=== PATIENT | male | born 1940 | race Caucasian/White ===

== ENCOUNTER → 2016-09-06 | Outpatient (CLI) | payer OTHER ==
[~2016-09-06] MED LIST: ACET-1256 PO; AMLO-114 PO; ASPCH81X PO; ATOR-22 PO; CALC600T9 PO; GARLTAB3 PO; MELO7.5T5 PO; RXC5 PO; VITAMIN B1 PO; VITAMIN B12 PO; VITAMIN D PO
== END | disposition home or self-care (01) ==
LOC: C.CTS 10:51
PROVIDERS: ATTEND Orthopaedic Surgery
DX: Z01.818 Encounter for other preprocedural examination (principal); M19.012 Primary osteoarthritis, left shoulder

== ENCOUNTER 2016-09-30 09:01 | Inpatient (IN) | payer OTHER ==
--- NOTE | 2016-09-06 11:46 | DIAGNOSTIC IMAGING REPORT ---
TWO VIEW CHEST CLINICAL HISTORY: Preoperative examination. FINDINGS: PA and lateral chest radiographs are compared to study dated 06/23/2014. The heart is mildly enlarged and there is atherosclerotic calcification of the thoracic aorta. There is chronic elevation of the right hemidiaphragm and bibasilar atelectasis. No airspace consolidation or pleural effusion is seen. There is no pneumothorax. The skeletal structures are osteopenic. The bony thorax appears intact. IMPRESSION: Mild cardiac enlargement with no active disease in the chest. Electronically signed by: Theodore Palacios M.D. 09/06/2016 11:45 AM Dictated Date/Time: 09/06/2016 11:44 AM
[2016-09-06 12:05] LABS: BASO % 0.2 %; BASO ABS # 0.02 K/uL (0-0.2); COMPLETE YES; EOS % 2.7 %; HEMATOCRIT 39.6 % (42-52); IG% 0.4 %; LYMPH % 15.2 %; LYMPH ABS # 1.22 K/uL (1.2-3.4); MEAN CELL VOLUME 94.1 fL (80-100); MEAN CORPUSCULAR HEMOGLOBIN 31.8 pg (25-34); MEAN CORPUSCULAR HGB CONC 33.8 g/dl (32-36); MEAN PLATELET VOLUME 10.9 fL (7.4-10.4); MONO % 12.6 %; NEUT % 68.9 %; PLATELET COUNT 130 K/uL (130-400); RED BLOOD COUNT 4.21 M/uL (4.7-6.1); WHITE BLOOD COUNT 8.04 K/uL (4.8-10.8)
[2016-09-06 12:18] LABS: PARTIAL THROMBOPLASTIN RATIO 1.2; PROTHROMBIN TIME (PATIENT) 10.4 SECONDS (9.0-12.0)
[2016-09-06 12:25] LABS: BLOOD UREA NITROGEN 20 mg/dl (7-18); BUN/CREATININE RATIO 19.8 (10-20); CARBON DIOXIDE 27 mmol/L (21-32); CHLORIDE 105 mmol/L (98-107); GLUCOSE 90 mg/dl (70-99); POTASSIUM 4.4 mmol/L (3.5-5.1); SODIUM 141 mmol/L (136-145)
[2016-09-06 13:08] LABS: URINE APPEARANCE CLEAR (CLEAR); URINE BILIRUBIN NEG (NEG); URINE COLOR YELLOW; URINE NITRITE NEG (NEG); URINE SPECIFIC GRAVITY 1.002 (1.000-1.030); UROBILINOGEN NEG (NEG)
[2016-09-06 13:11] LABS: MANUAL MICROSCOPIC REQUIRED? NO; REVIEW REQ? NO
[2016-09-15 16:00] VITALS: BMI 28.0
--- NOTE | 2016-09-29 14:18 | HISTORY & PHYSICAL EXAMINATION ---
DATE OF ADMISSION: 09/30/2016 CHIEF COMPLAINT: Primary osteoarthritis of the left shoulder. HISTORY OF PRESENT ILLNESS: Zenon is a pleasant 75-year-old male who has been having increased shoulder pain over the last several months. X-rays and clinical examination as well as MRI are all diagnostic for primary osteoarthritis of the shoulder. After failing extensive conservative treatment including multiple injections, he has elected to proceed with a left total shoulder arthroplasty. He understands all the risks, benefits, alternatives to the procedure and has elected to proceed. PAST MEDICAL HISTORY: Significant for hyperlipidemia and hypertension. MEDICATIONS: Include tramadol 50 mg for pain, amlodipine besylate 5 mg daily, atorvastatin 20 mg daily, Mobic 15 mg daily, and aspirin 81 mg daily. ALLERGIES: None. PAST SURGICAL HISTORY: Denies. FAMILY HISTORY: Noncontributory. SOCIAL HISTORY: He is . He has 3 kids. He remains very active. REVIEW OF SYSTEMS: He complains of left shoulder pain and tightness. All other pertinent review of systems are negative. PHYSICAL EXAMINATION: GENERAL: He is awake, alert and oriented x3. He is in no apparent distress. He is very pleasant. HEENT: Pupils equal, round and reactive to light. Extraocular motions intact. Oral mucosa pink and moist. HEART: Regular rate per radial pulse. LUNGS: Leslie symmetrically bilaterally with no audible breath sounds. ABDOMEN: Soft, nontender, nondistended. MUSCULOSKELETAL: On physical examination of the left shoulder, he has decreased active range of motion with only about 90 degrees of forward flexion and 90 degrees of abduction. He has 4/5 muscle strength with full can testing and external rotation secondary to pain. He has significant pain over the anterior glenohumeral joint line. No AC joint pain. IMAGING DATA: X-rays of the shoulder do show advanced osteoarthritis with mostly central glenoid wear. IMPRESSION: Primary osteoarthritis of the left shoulder. PLAN: We will proceed with a Biomet comprehensive left total shoulder arthroplasty. Postoperatively, he will be placed in an arm sling and kept overnight for postoperative medical management.
[2016-09-30] VITALS (7 sets, daily range): BP systolic 106–179; BP diastolic 58–88; PULSE 58–79; TEMP 36.2–36.8; O2SAT 91–98; Ht 182.9 cm; Wt 93.6 kg
[~2016-09-30] VITALS: Ht 182.9 cm; Wt 93.6 kg
[2016-09-30] MEDS: TRANEXAMIC ACID INJ 1,000 MG in SODIUM CHLORIDE 0.9% 100ML 100 ML IV SCH ×2 (06:30→10:45)
[~2016-09-30 09:01] MED LIST changes: +ACETAMINOPHEN 500 MG TAB PO SCH; +CEFAZOLIN 2000 MG/60 ML D5W 60 ML IV SCH; +FAMOTIDINE 20 MG TAB PO SCH; +GABAPENTIN 300 MG CAP PO SCH; +LACTATED RINGER'S 1000ML 1,000 ML IV SCH; +LACTATED RINGER'S 1000ML IV SCH; +ROPIVACAINE 0.5% 5 MG/ML 30 ML VIAL ONE; +ROPIVACAINE 5MG/ML 30 ML 150 MG, BUPIVACAINE/EPINEPHR 0.5% MPF 30 ML, KETOROLAC TROMETH... INFIL SCH; -RXC5 PO
[2016-09-30] MEDS ORDERED: GLYCOPYRROLATE INJ 0.2 MG/ML VIAL ONE (09:09)
[2016-09-30] MEDS ORDERED: ROCURONIUM BROMIDE 10 MG/ML 5 ML VIAL ONE (09:09)
[2016-09-30] MEDS ORDERED: ONDANSETRON INJ 2 MG/ML 2 ML VIAL ONE (09:09)
[2016-09-30] MEDS ORDERED: LIDOCAINE HCL 2% 2 ML VIAL (20MG/ML) ONE (09:09)
[2016-09-30] MEDS ORDERED: MIDAZOLAM HCL 1 MG/ML 2ML VIAL ONE ×2 (09:09→09:23)
[2016-09-30] MEDS ORDERED: DEXAMETHASONE SOD INJ 4 MG/ML VIAL ONE (09:09)
[2016-09-30] MEDS ORDERED: FENTANYL CITRATE INJ 50 MCG/1 ML 2 ML VIAL ONE ×2 (09:09)
[2016-09-30] MEDS ORDERED: NEOSTIGMINE METHYLSULFATE 1 MG/ML 10ML VIAL ONE (09:09)
[2016-09-30] MEDS ORDERED: PROPOFOL IV EMULSION 10 MG/ML 20 ML VIAL IV ONE (09:09)
--- NOTE | 2016-09-30 09:20 | History & Physical Bridge Note ---
H&P Re-Evaluation Bridge Note: I have examined the patient, reviewed the History & Physical and in the interval since the performance of the History & Physical I have noted the following changes of clinical significance: No changes noted
[2016-09-30] MEDS ORDERED: BACITRACIN 50000 UNIT VIAL ONE (10:16)
[2016-09-30] MEDS ORDERED: BUPIVACAINE/EPINEPHRINE 0.5% MPF 1:200,000 30 ML VIAL ONE (10:16)
[2016-09-30] MEDS ORDERED: ORTHO JOINT ANESTHETIC ONE (10:20)
[2016-09-30] MEDS ORDERED: FLUMAZENIL 0.1 MG/1 ML 10 ML VIAL IV ONE (13:34)
[2016-09-30] MEDS ORDERED: SOD PHOSPHATE/SOD BIPHOSPHATE ENEMA 132 ML BTL PR PRN (13:45)
[2016-09-30] MEDS ORDERED: ONDANSETRON INJ 2 MG/ML 2 ML VIAL IV PRN ×2 (13:45→14:45)
[2016-09-30] MEDS ORDERED: OXYCODONE HCL IR 5 MG TAB (IMMEDIATE RELEASE) PO PRN (13:45)
[2016-09-30] MEDS ORDERED: BISACODYL 10 MG SUPP PR PRN (13:45)
[2016-09-30] MEDS ORDERED: MoRPHine SULFATE 2 MG/ML CARP IV PRN (13:45)
[2016-09-30] MEDS ORDERED: MAGNESIUM HYDROXIDE SUSP 30 ML UDC PO PRN (13:45)
[2016-09-30] MEDS ORDERED: METOCLOPRAMIDE HCL INJ 5 MG/ML 2 ML VIAL IV PRN (13:45)
[2016-09-30] MEDS ORDERED: NALOXONE HCL 0.4 MG/1 ML VIAL/CARP IV PRN (13:45)
[2016-09-30] MEDS ORDERED: HYDROmorphone INJ 1 MG/ML SYR ONE (14:14)
--- NOTE | 2016-09-30 14:44 | DIAGNOSTIC IMAGING REPORT ---
LEFT SHOULDER MIN 2 VIEWS ROUTINE CLINICAL HISTORY: Postoperative evaluation. COMPARISON: CT of the left shoulder September 06, 2016 and left shoulder radiographs July 18, 2016. FINDINGS: Alignment of the left shoulder arthroplasty is anatomic. There is no periprosthetic fracture. A surgical drain is in place. An 8 mm metallic density within the left upper arm along the proximal shaft of the left humerus is unchanged since prior exam of July 18, 2016. IMPRESSION: 1. Expected findings following left shoulder arthroplasty. 2. 8 mm metallic density within the left upper arm which is unchanged since preoperative radiographs of July 18, 2016. This may reflect a foreign body. Electronically signed by: Alf Sidhu M.D. 09/30/2016 2:42 PM Dictated Date/Time: 09/30/2016 2:40 PM
[2016-09-30] MEDS ORDERED: ATROPINE SULFATE 0.1 MG/ML 5ML SYR IV PRN (14:45)
[2016-09-30] MEDS ORDERED: HYDROmorphone INJ 2 MG/ML SYR/VIAL IV PRN (14:45)
--- NOTE | 2016-09-30 15:01 | Anesthesiology Progress Note ---
Anesthesia Post Op Note Date & Time Sep 30, 2016 at 15:01 Vital Signs Pain Intensity: 0 Vital Signs Past 12 Hours Date Time Temp Pulse Resp B/P Pulse Ox O2 Delivery O2 Flow Rate FiO2 09/30/16 14:45 36.4 09/30/16 14:44 68 18 09/30/16 14:44 68 18 98 09/30/16 14:40 130/60 09/30/16 14:39 63 21 09/30/16 14:39 70 21 94 09/30/16 14:35 133/68 09/30/16 14:34 59 17 09/30/16 14:34 56 17 100 09/30/16 14:33 67 17 100 09/30/16 14:33 66 17 09/30/16 14:30 110/59 09/30/16 14:28 56 14 99 09/30/16 14:28 56 14 09/30/16 14:26 117/58 09/30/16 14:23 54 12 09/30/16 14:23 53 12 100 09/30/16 14:20 117/62 09/30/16 14:18 69 19 09/30/16 14:18 69 19 100 09/30/16 14:15 134/64 09/30/16 14:13 70 19 100 09/30/16 14:13 70 19 09/30/16 14:10 135/70 09/30/16 14:08 36.0 16 140/67 99 Mask 10 09/30/16 14:08 76 20 140/67 100 09/30/16 14:08 77 20 09/30/16 09:33 36.6 67 20 179/88 98 Room Air Notes Mental Status: alert / awake / arousable, participated in evaluation Pt Amnestic to Procedure: Yes Nausea / Vomiting: adequately controlled Pain: adequately controlled Airway Patency, RR, SpO2: stable & adequate BP & HR: stable & adequate Hydration State: stable & adequate Anesthetic Complications: no major complications apparent
--- NOTE | 2016-09-30 15:04 | Anesthesiology Progress Note ---
Anesthesia Progress Note Date of Service Sep 30, 2016. Progress Notes During intubation at the start of the surgery, it was noted that he had a small smooth protuberance projecting from his posterior oropharynx, above the glottis , near the level of the epiglottis. Attempted to get a video with the glidescope and am working with HIM to retrieve it. Talked to patient and after surgery about having an ENT take a look at it at some time in the future. Otherwise he did very well with his surgery.
--- NOTE | 2016-09-30 15:52 | [facility] Post Operative Brief Note ---
Immediate Operative Summary Operative Date Sep 30, 2016. Pre-Operative Diagnosis Primary osteoarthritis of the left shoulder Post-Operative Diagnosis Same as pre-operative diagnosis Procedure(s) Performed Left Total Shoulder Arthroplasty, Cemented Surgeon Dr. Bruno Sinclair Undercover Cop Surgeon(s) Robert Pierce PA-C Estimated Blood Loss 200 ml Findings as above Specimens A: Left humeral head Complication(s) None Disposition Recovery Room / PACU
[2016-09-30] MEDS: D5W AND 1/2NSS + 20MEQ KCL 1,000 ML IV SCH (16:38)
[2016-09-30] MEDS: KETOROLAC TROMETHAMINE 15 MG/ML VIAL IV. SCH ×2 (17:58→23:26)
[2016-09-30] MEDS ORDERED: PNEUMOCOCCAL POLYSACCHARIDES 25 MCG/0.5 ML VIAL/SYR IM. ONE (20:15)
[2016-09-30] MEDS ORDERED: PNEUMOCOCCAL ADMINISTRATION CHARGE ONE (20:15)
[2016-09-30] MEDS: ACETAMINOPHEN IV 1,000 MG in EMPTY BAG 0 ML IV SCH (20:32)
[2016-09-30] MEDS: DOCUSATE SODIUM 100 MG CAP PO SCH (20:33)
[2016-09-30] MEDS: CEFAZOLIN IV 2,000 MG in DEXTROSE 5% 50ML 50 ML IV SCH (20:33)
[2016-09-30] MEDS ORDERED: SENNA 8.6 MG TAB PO SCH (21:00)
--- NOTE | 2016-09-30 22:46 | OPERATIVE REPORT ---
DATE OF OPERATION: 09/30/2016 PREOPERATIVE DIAGNOSIS: Primary osteoarthritis of the left shoulder. POSTOPERATIVE DIAGNOSIS: Same. PROCEDURE: Left total shoulder arthroplasty. SURGEON: Dr. Aashish Sinclair. FEED HANDLER: Robert Pierce PA-C, whose assistance was necessary for retraction and helping with instrumentation. ANESTHESIA: General with a left interscalene nerve block. COMPLICATIONS: None. CONDITION: Stable to PACU. INDICATIONS: Zenon is a very pleasant 75-year-old male, who presented to my office with chronic left shoulder pain. X-rays and MRIs were diagnostic for primary osteoarthritis of the left shoulder. After failing extensive conservative treatment, he elected to undergo a left total shoulder arthroplasty. DESCRIPTION OF PROCEDURE: On 09/30/2016, he arrived at [facility] for the above procedure. He was seen in the preoperative holding area and the operative extremity was identified and signed. He was given a preoperative antibiotic and a left interscalene nerve block. He was taken back to the operating room, laid on the table in supine position and put into the beach chair position. The left shoulder was prepped and draped in sterile fashion. Time-out was done and the patient and operative extremity was properly identified. A deltopectoral approach was utilized. Dissection was taken down through the fascia and the anterior shoulder was exposed. The long head of biceps tendon was tenodesed to the upper border of the pec major. The rotator interval was opened and the subscapularis was tenotomized off the lesser tuberosity with a centimeter of cuff tissue remaining. The shoulder was dislocated out of the joint. A reamer was sent down the center of the humeral canal. Sequential reaming up to a size 14 reamer was done. Off the final reamer, a proximal humeral resection guide was placed and the proximal humerus was resected at 135 degrees of inclination and 30 degrees of retroversion. The glenoid was then exposed. Time was spent doing an anterior, inferior and superior capsular and labral release. The posterior labrum was not touched. The [employer] signature guide was then snapped onto the anterior glenoid and the guide pin was sent in the total shoulder arthroplasty hole. The glenoid was determined to be a size small. It was reamed. The boss was then drilled, followed by 3 peripheral peg holes and the final glenoid was then cemented into place with Palacos G cement. Once cement had hardened, the proximal humerus was exposed. Sequential broaching up to a size 14 broach was done. Off that broach, a 46 x 18 mm eccentric head was placed. The shoulder was brought through a full range of motion and felt to be stable. The trials were removed. The final implants were impacted into place. The subscapularis was then tenodesed back to the lesser tuberosity with transosseous FiberWire sutures and [id number] sutures. Two FiberWire sutures were placed in the lateral rotator interval. The wound was irrigated with 3 liters of normal saline solution with bacitracin. All surrounding soft tissues were injected with 100 mL of an orthopedic pain control cocktail. A drain was placed. The skin was closed with 2-0 Vicryl, 3-0 V-Loc suture, and a Prineo dressing. He was then placed in a left arm sling, extubated, transferred to a litter and taken to the postanesthesia care unit in stable condition. He tolerated the procedure well. IMPLANTS USED: I used a Biomet comprehensive left total shoulder arthroplasty system with a size 14 humeral stem, a 46 x 18 mm eccentric humeral head, and a small glenoid with a Regenerex peg. Cement was on the posterior aspect of the glenoid as well as the peripheral peg holes. I attest to the content of the Intraoperative Record and any orders documented therein. Any exceptio ns are noted below.
[2016-10-01] MEDS: D5W AND 1/2NSS + 20MEQ KCL 1,000 ML IV SCH (02:25)
[2016-10-01 03:55] VITALS: BP 127/67; PULSE 61; TEMP 36.4; O2SAT 93
[2016-10-01] MEDS: ACETAMINOPHEN IV 1,000 MG in EMPTY BAG 0 ML IV SCH (03:55)
[2016-10-01] MEDS: CEFAZOLIN IV 2,000 MG in DEXTROSE 5% 50ML 50 ML IV SCH (03:55)
[2016-10-01] MEDS: KETOROLAC TROMETHAMINE 15 MG/ML VIAL IV. SCH (05:50)
[2016-10-01 06:10] LABS: HEMATOCRIT 34.7 % (42-52); MEAN CELL VOLUME 91.8 fL (80-100); MEAN CORPUSCULAR HEMOGLOBIN 30.7 pg (25-34); MEAN CORPUSCULAR HGB CONC 33.4 g/dl (32-36); MEAN PLATELET VOLUME 10.4 fL (7.4-10.4); PLATELET COUNT 178 K/uL (130-400); RED BLOOD COUNT 3.78 M/uL (4.7-6.1); WHITE BLOOD COUNT 22.72 K/uL (4.8-10.8)
[2016-10-01 06:35] LABS: BUN/CREATININE RATIO 15.8 (10-20); CALCIUM 8.6 mg/dl (8.5-10.1); CREATININE 1.3 mg/dl (0.60-1.40); POTASSIUM 4.6 mmol/L (3.5-5.1)
[2016-10-01 07:29] VITALS: BP 122/71; PULSE 61; TEMP 36.5; O2SAT 96
[2016-10-01] MEDS: DOCUSATE SODIUM 100 MG CAP PO SCH (08:31)
[2016-10-01] MEDS ORDERED: RXC5 PO (08:54)
--- NOTE | 2016-10-01 08:55 | Discharge Instructions ---
Discharge Instructions Admission Reason for Admission: Left Shoulder Osteoarthritis Discharge Discharge Diagnosis / Problem: Lefrt Total Shoulder Discharge Goals Goal(s): Decrease discomfort, Improve function Activity Recommendations Activity Limitations: as noted below Shower/Bathe: may shower/bathe in 3 days sling for 3 weeks . Instructions / Follow-Up Instructions / Follow-Up may shower on Monday, leave glue dressing in place until follow-up in 2 weeks Current Hospital Diet Patient's current hospital diet: Regular Diet Discharge Diet Recommended Diet: Regular Diet Procedures Procedures Performed: Left Total Shoulder Arthroplasty, Cemented Pending Studies Studies pending at discharge: no Medical Emergencies . Who to Call and When: Medical Emergencies: If at any time you feel your situation is an emergency, please call 911 immediately. . Non-Emergent Contact Non-Emergency issues call your: Surgeon Call Non-Emergent contact if: wound has increased drainage, wound has increased redness . "Provider Documentation" section prepared by Aashish Sinclair. VTE Core Measure Inpt VTE Proph given/why not?: Treatment not indicated
[2016-10-01] MEDS ORDERED: ASPIRIN 81 MG ECTAB PO SCH (09:00)
[2016-10-01] MEDS ORDERED: ATORVASTATIN 20 MG TAB PO SCH (09:00)
[2016-10-01] MEDS ORDERED: MULTIVITAMIN TAB PO SCH (09:00)
[2016-10-01] MEDS ORDERED: AMLODIPINE BESYLATE 5 MG TAB PO SCH (09:00)
[2016-10-01] MEDS ORDERED: PANTOprazole SOD 40 MG TAB PO SCH (09:00)
--- NOTE | 2016-10-01 09:26 | PROGRESS NOTE ---
DATE: 10/01/2016 CHIEF COMPLAINT: Status post left total shoulder arthroplasty postop day #1. PROGRESS: Zenon was seen and examined at bedside today. Overall, he is doing very well. He says he does not have any pain in his left shoulder. He was able to sleep last night. He has no complaints. PHYSICAL EXAMINATION: The dressing is clean and dry and the drain is to suction. He is wearing his arm sling as instructed. His radial, median and ulnar nerves are checked and intact. His axillary nerve was not definitively checked yet. LABORATORY DATA: He has an H\T\H today of 11.6 and 34.7. His glucose is 159. His vital signs are all stable on room air. He is voiding on his own, his Hemovac put out 200 mL. X-RAYS: X-rays postoperatively of the left shoulder show the prosthesis to be in anatomic alignment without any evidence of fracture, dislocation or loosening. IMPRESSION: Status post left total shoulder arthroplasty postop day #1. PLAN: At this point, he is doing very well. He will be seen by physical therapy today. The nursing staff will change his dressing, pull the drain, and he can be discharged to home later this morning.
--- NOTE | 2016-10-01 09:48 | DISCHARGE SUMMARY ---
DISCHARGE DIAGNOSIS: Primary osteoarthritis of the left shoulder. PROCEDURE: Left total shoulder arthroplasty on 09/30/[address] Aashish Sinclair. DISCHARGE INSTRUCTIONS: 1. Oxycodone 5 mg every 4-6 hours as needed for pain. 2. Norvasc 10 mg daily. 3. Aspirin 81 mg daily. 4. Lipitor 20 mg daily. 5. Calcium 1 tab daily. 6. Mobic 15 mg daily. 7. May shower 3 days from the day of surgery. 8. Left arm sling for 3 weeks. 9. Follow up with Dr. Sinclair in 2 weeks. 10. Call the office of Dr. Sinclair with any questions or concerns. HOSPITAL COURSE: Zenon is a pleasant 75-year-old male who presented to my office with chronic left shoulder pain. X-rays and clinical examination were diagnostic for primary osteoarthritis of the left shoulder. After failing conservative treatment, he elected to undergo a left total shoulder arthroplasty. On 09/30/2016, he arrived at [facility] and underwent a left shoulder replacement without complications. He had a general anesthetic and a left interscalene nerve block. He was then discharged to the general orthopedic floor. His hospital course was uneventful. On postop day #1, his H\T\H was stable at 11.6 and 34.7. He was not having much pain in his arm when the block wore off. He was able to participate well with physical therapy. The nursing staff changed the dressing, pulled the drain, and he was subsequently discharged to home with the above instructions.
[2016-10-01 10:26] VITALS: BP 122/71; PULSE 61; TEMP 36.5; O2SAT 96
== END 2016-10-01 11:00 | disposition home or self-care (01) | DRG 483 ==
LOC: ENRESERV → ENRESERVTM → ENRESERVDT → C.ACU 09:01 → C.3E 15:47
PROVIDERS: ADMIT Orthopaedic Surgery; ATTEND Orthopaedic Surgery
PROC: 0RRK0J6 Replacement of Left Shoulder Joint with Synthetic Substitute, Humeral Surface, Open Approach (ICD-10-PCS; principal; 2016-09-30 12:30)
DX: M19.012 Primary osteoarthritis, left shoulder (principal); I10 Essential (primary) hypertension; E78.5 Hyperlipidemia, unspecified; Z79.82 Long term (current) use of aspirin; Z79.899 Other long term (current) drug therapy; Z98.890 Other specified postprocedural states

== ENCOUNTER 2020-12-31 20:00 | Inpatient (IN) ==
[2020-12-31] MEDS ORDERED: ONDANSETRON INJ 2 MG/ML 2 ML VIAL IV STA (20:22)
[2020-12-31] MEDS ORDERED: fentaNYL citrate 100 MCG/2 ML VIAL IV STA (20:22)
[2020-12-31] MEDS ORDERED: SODIUM CHLORIDE 0.9% 1000ML 1,000 ML IV SCH (20:30)
[2020-12-31] MEDS ORDERED: OPTIRAY 350 500ml IV ONE (20:33)
[2020-12-31 20:34] LABS: Basophils # (auto) 0.01 K/uL (0-0.2); Basophils % (auto) 0.2 %; Eosinophils # (auto) 0.23 K/uL (0-0.5); Eosinophils % (auto) 3.6 %; Hematocrit (blood only) 41.1 % (42-52); Lymphocytes # (auto) 0.92 K/uL (1.2-3.4); Lymphocytes % (auto) 14.3 %; Mean Corpuscular Hemoglobin 34.1 pg (25-34); Mean Corpuscular Hgb Conc 34.1 g/dL (32-36); Monocytes # (auto) 0.59 K/uL (0.11-0.59); Monocytes % (auto) 9.1 %; Neutrophils % (auto) 72.8 %; Platelet Count 104 K/uL (130-400); RDW Standard Deviation 50.8 fL (36.4-46.3); Red Blood Count 4.11 M/uL (4.7-6.1); White Blood Count 6.45 K/uL (4.8-10.8)
[2020-12-31 20:37] LABS: iSTAT Creatinine 1.1 mg/dl (0.6-1.3); iSTAT Hemoglobin 13.6 g/dl (14.0-18.0); iSTAT Ionized Calcium 1.29 mmol/l (1.12-1.32); iSTAT Potassium 4.2 mmol/L (3.3-5.0)
[2020-12-31 20:50] LABS: Partial Thromboplastin Time 26.5 Seconds (21.0-31.0); Prothrombin Time 10.3 Seconds (9.0-12.0)
[2020-12-31 20:51] LABS: BUN Creatinine Ratio 17.9 (10-20); Calcium 9.8 mg/dl (8.5-10.1); Creatinine Clr Calc Pharmacy 58.4 ml/min; Est GFR (African American) 74.5 ml/min; Est GFR (Non-African American) 64.3 ml/min; Potassium 4.2 mmol/L (3.5-5.1)
[2020-12-31 20:53] LABS: Albumin Globulin Ratio 1.2 (0.9-2); Bilirubin,Total 1.1 mg/dl (0.2-1); Globulin 3.3 gm/dl (2.5-4.0); Total Protein 7.3 gm/dl (6.4-8.2)
--- NOTE | 2020-12-31 21:40 | CT Scan Report ---
CHEST CTA for AORTIC DISSECTION, ABDOMEN AND PELVIS CTA FOR AORTIC DISSECTION CT DOSE: HISTORY: epigastric pain, severe TECHNIQUE: Multiaxial CT images of the chest, abdomen, and pelvis were performed both before and afte r the intravenous administration of contrast to evaluate the aorta. Maximal intensity projection imag es were also obtained. A dose lowering technique was utilized adhering to the principles of ALARA. COMPARISON STUDY: None. FINDINGS: Chest CTA: Noncontrast imaging through the chest shows no evidence for an intramural hematoma within the thoracic aorta. Moderate to severe calcified plaque within the coronary arteries. Normal caliber thoracic aorta with no evidence for dissection. The main pulmonary arteries appear patent. The heart is borderline enlarged. No pleural or pericardial effusions. Normal esophagus. No left hilar lymphade nopathy. A few prominent right paratracheal and right hilar lymph nodes. Dominant right hilar lymph n ode measures 1 cm in short axis diameter. Dominant right paratracheal lymph node measures 11 mm in sh ort axis diameter. There is a left shoulder prosthesis which is partially visualized. No suspicious l ytic or blastic osseous lesions. No pneumothorax. The central airways are patent. Mild respiratory mo tion artifact. A few bibasilar linear densities favor subsegmental atelectasis. Otherwise, no focal l sheba consolidations to suggest pneumonia. A 4 mm nodule within the right middle lobe on image 145. Abdomen/pelvis CTA: No pneumoperitoneum. No pneumatosis. No fractures within the visualized osseous s tructures. Small fat-containing left inguinal hernia. A few calcified nodules within the left side of the mesentery. This is likely benign. The prostate gland is enlarged. Bladder is not well-distended. There is mild bladder wall thickening. This favors chronic outlet obstruction. No pelvic free fluid. The liver, gallbladder, spleen, adrenal glands, and pancreas are unremarkable. Bilateral cortical re nal thinning. No hydronephrosis. There is an indeterminate 8 mm exophytic lesion within the upper leeroy e the left kidney image 159. This is technically indeterminate but does not clearly represent a simpl e cyst. No retroperitoneal or pelvic lymphadenopathy. A few colonic diverticula. No evidence for acut e diverticulitis. Moderate well-formed stool seen within the colon. No bowel wall thickening or obstr uction. Normal caliber abdominal aorta with no evidence for dissection. The celiac artery, superior m esenteric artery, inferior mesenteric artery, and iliac arteries are widely patent. No aneurysms iden tified. Mild calcified plaque within the iliac arteries. IMPRESSION: 1. No evidence for an aortic dissection or aneurysm. 2. A few prominent right paratracheal and right hilar lymph nodes as described above. These are nonsp ecific. Consider six-month follow-up chest CT to ensure stability. 3. A 4 mm indeterminate pulmonary nodule within the right middle lobe. Please refer to the chart belo w for recommended follow-up. 4. There is an indeterminate 8 mm exophytic lesion within the upper pole the left kidney which is denver hnically indeterminate but does not clearly represent a simple cyst. Follow-up nonemergent dedicated renal MRI can be used to evaluate for a solid renal mass. 5. No bowel wall thickening or obstruction. 6. Additional findings as described above. ACT 112: Negative or not required by law. Electronically signed by: Javier Mendiola M.D. 12/31/2020 9:39 PM
[2020-12-31] MEDS ORDERED: FAMOTIDINE 20MG/5ML IV PUSH IV STA (22:17)
[2020-12-31 22:55] LABS: Lipase 71 U/L (73-393); Troponin I < 0.015 ng/ml (0-0.045)
--- NOTE | 2020-12-31 23:04 | Emergency Department Note ---
History of Present Illness General Chief complaint: Abdominal Pain Stated complaint: ab pain Source: patient, family ( at the bedside) and RN notes reviewed Mode of arrival: ambulatory Limitations: no limitations History of Present Illness Provider complaint: Abdominal pain Maximum Pain Intensity: 4 This patient is an 80-year-old male who presents emergency department with complaints of abdominal pain that began this afternoon. He states it started just prior to lunch and has waxed and waned most of the day. He states he has never experienced pain like this in the past. He gestures from his epigastric region to the suprapubic region midline and states it is a 9/10 pain. He denies any vomiting or diarrhea but states he thinks he would feel better if he could just throw up. He denies any blood in his stools. He denies any fevers or trauma to the abdomen. He states he was "running some equipment" when the pain began and states it was a nonexertional activity. He denies any cough, shortness of breath or fevers recently. Patient denies any chest pain. Home Medications Medication Instructions Recorded Confirmed Type amlodipine 5 mg PO Q OTHER DAY 12/31/20 12/31/20 History aspirin 81 mg PO Q OTHER DAY 12/31/20 12/31/20 History atorvastatin 20 mg PO Q OTHER DAY 12/31/20 12/31/20 History calcium carbonate-vitamin D3 1 tab PO Q OTHER DAY 12/31/20 12/31/20 History [Calcium 600 + D(3)] coenzyme Q10 [CoQ-10] 100 mg PO Q OTHER DAY 12/31/20 12/31/20 History garlic 1,000 mg PO Q OTHER DAY 12/31/20 12/31/20 History omega 6-lhg-sud-fish oil [Fish Oil] 1 cap PO Q OTHER DAY 12/31/20 12/31/20 History pantoprazole 40 mg PO Q OTHER DAY 12/31/20 12/31/20 History Allergies Allergy/AdvReac Type Severity Reaction Status Date / Time tramadol AdvReac Intermediate NAUSEA Verified 12/31/20 20:57 Past Med/Surg History Medical History (Updated 01/01/21 @ 01:14 by Rolan Orozco PA-C) Allergic reaction Coronary artery disease Hyperlipidemia Hypertension Leukemia Neutropenia Osteoarthritis of shoulder Surgical History (Updated 01/01/21 @ 01:13 by Rolan Orozco PA-C) History of cardiac catheterization Social History (Updated 01/01/21 @ 01:08 by Yanely Clayton MD) Smoking Status: Never smoker Preferred Language: Armenian marital status: Feels Safe at Home: Yes Review of Systems See HPI for pertinent positives & negatives. and A total of 10 systems reviewed and were otherwise negative Physical Exam Vital Signs Vital Signs - 24 hr 12/31/20 20:01 12/31/20 20:15 12/31/20 20:39 Temperature 36.3 C L Temperature Source Temporal Artery Scan Pulse Rate 65 58 L Pulse Rate [Finger] Pulse Rate from SpO2 Sensor 61 Pulse Rhythm Regular Pulse Rhythm [Finger] Respiratory Rate 18 11 L Respiratory Effort / Characteristics Non-Labored Spontaneous Respiratory Depth Normal Respiratory Pattern Regular Blood Pressure 155/82 H 175/78 H Blood Pressure [Left Arm] Blood Pressure Mean 106 110 Blood Pressure Mean [Left Arm] Blood Pressure Position [Left Arm] Pulse Oximetry 95 96 Oxygen Delivery Method Room Air Sepsis Recent Fever Within 48 Hours No Sepsis New/Unexplained Change in Mental Status No Sepsis Action Taken by Nursing No Action Required 12/31/20 20:40 12/31/20 20:41 12/31/20 20:44 Temperature Temperature Source Pulse Rate 58 L 50 L 51 L Pulse Rate [Finger] Pulse Rate from SpO2 Sensor 57 L 50 L 51 L Pulse Rhythm Pulse Rhythm [Finger] Respiratory Rate 14 10 L 14 Respiratory Effort / Characteristics Respiratory Depth Respiratory Pattern Blood Pressure 178/84 H 141/77 H Blood Pressure [Left Arm] Blood Pressure Mean 115 98 Blood Pressure Mean [Left Arm] Blood Pressure Position [Left Arm] Pulse Oximetry 98 97 98 Oxygen Delivery Method Sepsis Recent Fever Within 48 Hours Sepsis New/Unexplained Change in Mental Status Sepsis Action Taken by Nursing 12/31/20 20:50 12/31/20 20:51 12/31/20 21:00 Temperature 36 C L Temperature Source Oral Pulse Rate 50 L 54 L 49 L Pulse Rate [Finger] Pulse Rate from SpO2 Sensor 49 L 53 L 49 L Pulse Rhythm Pulse Rhythm [Finger] Regular Respiratory Rate 8 L 14 14 Respiratory Effort / Characteristics Non-Labored Respiratory Depth Normal Respiratory Pattern Regular Blood Pressure 144/68 H 133/70 Blood Pressure [Left Arm] 144/68 H Blood Pressure Mean 93 91 Blood Pressure Mean [Left Arm] 93 Blood Pressure Position [Left Arm] Lying Pulse Oximetry 94 89 L 94 Oxygen Delivery Method Room Air Sepsis Recent Fever Within 48 Hours Sepsis New/Unexplained Change in Mental Status Sepsis Action Taken by Nursing 12/31/20 21:01 12/31/20 21:10 12/31/20 21:20 Temperature Temperature Source Pulse Rate 48 L 48 L 48 L Pulse Rate [Finger] Pulse Rate from SpO2 Sensor 48 L 48 L 49 L Pulse Rhythm Pulse Rhythm [Finger] Respiratory Rate 9 L 13 12 Respiratory Effort / Characteristics Respiratory Depth Respiratory Pattern Blood Pressure 130/60 140/64 Blood Pressure [Left Arm] Blood Pressure Mean 83 89 Blood Pressure Mean [Left Arm] Blood Pressure Position [Left Arm] Pulse Oximetry 92 91 97 Oxygen Delivery Method Sepsis Recent Fever Within 48 Hours Sepsis New/Unexplained Change in Mental Status Sepsis Action Taken by Nursing 12/31/20 21:21 12/31/20 21:30 12/31/20 21:31 Temperature Temperature Source Pulse Rate 48 L 48 L 46 L Pulse Rate [Finger] Pulse Rate from SpO2 Sensor 48 L 48 L 47 L Pulse Rhythm Pulse Rhythm [Finger] Respiratory Rate 13 16 12 Respiratory Effort / Characteristics Respiratory Depth Respiratory Pattern Blood Pressure 142/70 H Blood Pressure [Left Arm] Blood Pressure Mean 94 Blood Pressure Mean [Left Arm] Blood Pressure Position [Left Arm] Pulse Oximetry 96 96 94 Oxygen Delivery Method Sepsis Recent Fever Within 48 Hours Sepsis New/Unexplained Change in Mental Status Sepsis Action Taken by Nursing 12/31/20 21:40 12/31/20 21:41 12/31/20 23:20 Temperature Temperature Source Pulse Rate 47 L 48 L Pulse Rate [Finger] 52 L Pulse Rate from SpO2 Sensor 47 L 47 L Pulse Rhythm Pulse Rhythm [Finger] Respiratory Rate 15 14 18 Respiratory Effort / Characteristics Non-Labored Spontaneous Respiratory Depth Normal Respiratory Pattern Regular Blood Pressure 153/72 H Blood Pressure [Left Arm] 177/82 H Blood Pressure Mean 99 Blood Pressure Mean [Left Arm] 113 Blood Pressure Position [Left Arm] Lying Pulse Oximetry 99 99 97 Oxygen Delivery Method Room Air Sepsis Recent Fever Within 48 Hours Sepsis New/Unexplained Change in Mental Status Sepsis Action Taken by Nursing 12/31/20 23:30 12/31/20 23:40 12/31/20 23:50 Temperature Temperature Source Pulse Rate 52 L 55 L 58 L Pulse Rate [Finger] Pulse Rate from SpO2 Sensor 52 L 55 L 59 L Pulse Rhythm Pulse Rhythm [Finger] Respiratory Rate 15 18 13 Respiratory Effort / Characteristics Respiratory Depth Respiratory Pattern Blood Pressure 183/100 H 181/79 H 171/80 H Blood Pressure [Left Arm] Blood Pressure Mean 127 113 110 Blood Pressure Mean [Left Arm] Blood Pressure Position [Left Arm] Pulse Oximetry 95 95 97 Oxygen Delivery Method Sepsis Recent Fever Within 48 Hours Sepsis New/Unexplained Change in Mental Status Sepsis Action Taken by Nursing 01/01/21 00:16 01/01/21 00:21 01/01/21 00:30 Temperature Temperature Source Pulse Rate 52 L 51 L 51 L Pulse Rate [Finger] Pulse Rate from SpO2 Sensor 52 L 50 L 54 L Pulse Rhythm Pulse Rhythm [Finger] Respiratory Rate 14 12 17 Respiratory Effort / Characteristics Respiratory Depth Respiratory Pattern Blood Pressure 175/77 H 170/82 H 155/84 H Blood Pressure [Left Arm] Blood Pressure Mean 109 111 107 Blood Pressure Mean [Left Arm] Blood Pressure Position [Left Arm] Pulse Oximetry 96 97 92 Oxygen Delivery Method Sepsis Recent Fever Within 48 Hours Sepsis New/Unexplained Change in Mental Status Sepsis Action Taken by Nursing 01/01/21 00:39 Temperature Temperature Source Pulse Rate 51 L Pulse Rate [Finger] Pulse Rate from SpO2 Sensor Pulse Rhythm Pulse Rhythm [Finger] Respiratory Rate 15 Respiratory Effort / Characteristics Respiratory Depth Respiratory Pattern Blood Pressure 159/83 H Blood Pressure [Left Arm] Blood Pressure Mean 108 Blood Pressure Mean [Left Arm] Blood Pressure Position [Left Arm] Pulse Oximetry 95 Oxygen Delivery Method Room Air Sepsis Recent Fever Within 48 Hours Sepsis New/Unexplained Change in Mental Status Sepsis Action Taken by Nursing Vital signs reviewed. General: Well-appearing 80 yo male, in no significant distress. HEENT: No scleral icterus, PERRLA, neck supple. Atraumatic. Cardiovascular: Regular rate and rhythm, no extra sounds. Pulmonary: Clear to auscultation bilaterally, normal work of breathing. Abdomen: Soft, mild tenderness to palpation of the upper abdomen, no rebound, no guarding, no palpable mass, nondistended, positive bowel sounds. Musculoskeletal: Atraumatic, no peripheral edema. Neurologic: Patient awake alert and oriented x 3 Skin: Warm, dry, no rash Course Administered Medications Discontinued Medications Amlodipine Besylate (Amlodipine Besylate 5 Mg Tab) 5 mg PO NOW STA Stop: 01/01/21 00:26 Last Admin: 01/01/21 00:40 Dose: 5 mg Documented by: [id number] Famotidine (Famotidine 20mg/5ml Iv Push) 20 mg IV ONE STA Stop: 12/31/20 22:18 Last Admin: 12/31/20 23:16 Dose: 20 mg Documented by: [id number] Fentanyl Citrate (Fentanyl Citrate 100 Mcg/2 Ml Vial) 50 mcg IV NOW STA Stop: 12/31/20 20:23 Last Admin: 12/31/20 20:44 Dose: 50 mcg Documented by: [id number] Sodium Chloride (Nss 1000ml) 1,000 mls @ 125 mls/hr IV .Q8H MICHELLE Stop: 01/30/21 20:29 Last Admin: 12/31/20 20:44 Dose: 125 mls/hr Documented by: [id number] Ioversol (Optiray 350 500ml) 89 ml IV ONCE ONE Stop: 12/31/20 20:34 Last Admin: 12/31/20 20:34 Dose: 89 ml Documented by: [id number] Ondansetron HCl (Ondansetron Inj 2 Mg/Ml 2 Ml Vial) 4 mg IV NOW STA Stop: 12/31/20 20:23 Last Admin: 12/31/20 20:44 Dose: 4 mg Documented by: [id number] Medical Decision Making Differential Diagnosis Appendicitis, testicular torsion, infections, diverticulitis, UTI, obstruction, mesenteric ischemia, aortic pathology, inflammatory bowel disease, renal colic, PUD, pancreatitis, biliary pathology, hernia, volvulus, constipation, as well as other pathologies. Medical Records Attestation: I reviewed the patient's medical records. Home Medications Current Medication List: was personally reviewed by me Laboratory Data Attestation: I reviewed the patient's lab results. Result diagrams: 12/31/20 20:20 12/31/20 20:20 Lab Results 12/31/20 12/31/20 12/31/20 Range/Units 20:20 20:20 20:20 WBC 6.45 (4.8-10.8) K/uL RBC 4.11 L (4.7-6.1) M/uL Hgb 14.0 (14.0-18.0) g/dL POC Hgb (14.0-18.0) g/dl Hct 41.1 L (42-52) % POC Hct (42-52) % MCV 100.0 (80-100) fL MCH 34.1 H (25-34) pg MCHC 34.1 (32-36) g/dL RDW Std Deviation 50.8 H (36.4-46.3) fL RDW Coeff of Marisela 14.0 (11.5-14.5) % Plt Count 104 L (130-400) K/uL MPV 11.0 H (7.4-10.4) fL Immature Gran % (Auto) 0.0 % Neut % (Auto) 72.8 % Lymph % (Auto) 14.3 % Winn % (Auto) 9.1 % Eos % (Auto) 3.6 % Baso % (Auto) 0.2 % Neut # (Auto) 4.70 (1.4-6.5) K/uL Lymph # (Auto) 0.92 L (1.2-3.4) K/uL Winn # (Auto) 0.59 (0.11-0.59) K/uL Eos # (Auto) 0.23 (0-0.5) K/uL Baso # (Auto) 0.01 (0-0.2) K/uL Immature Gran # (Auto) 0.00 (0.00-0.02) K/uL PT 10.3 (9.0-12.0) Seconds INR 1.0 (0.9-1.1) APTT 26.5 (21.0-31.0) Seconds PTT Ratio 1.0 POC Sodium (135-144) mmol/L Sodium 141 (136-145) mmol/L POC Potassium (3.3-5.0) mmol/L Potassium 4.2 (3.5-5.1) mmol/L POC Chloride (101-112) mmol/L Chloride 107 (98-107) mmol/L Carbon Dioxide 28 (21-32) mmol/L POC Total CO2 (24-31) mmol/L Anion Gap 6.0 (3-11) POC Anion Gap (16-25) mmol/L POC BUN (7-18) mg/dl BUN 19 H (7-18) mg/dl Creatinine 1.07 (0.6-1.4) mg/dl POC Creatinine (0.6-1.3) mg/dl Est Cr Clr Drug Dosing 58.4 ml/min Est GFR ( Amer) 74.5 ml/min Est GFR (Non-Af Amer) 64.3 ml/min BUN/Creatinine Ratio 17.9 (10-20) Glucose 132 H (70-99) mg/dl POC Glucose (other) (70-99) mg/dl Calcium 9.8 (8.5-10.1) mg/dl POC Ioniz Calcium Ashley (1.12-1.32) mmol/l Magnesium (1.8-2.4) mg/dl Total Bilirubin 1.1 H (0.2-1) mg/dl AST 22 (15-37) U/L ALT 27 (12-78) U/L Alkaline Phosphatase 87 (45-117) U/L Troponin I (0-0.045) ng/ml Total Protein 7.3 (6.4-8.2) gm/dl Albumin 4.0 (3.4-5.0) gm/dl Globulin 3.3 (2.5-4.0) gm/dl Albumin/Globulin Ratio 1.2 (0.9-2) Lipase (73-393) U/L TSH (0.300-4.500) uIu/ml COVID-19 Eval Order 12/31/20 12/31/20 01/01/21 Range/Units 20:24 22:11 00:15 WBC (4.8-10.8) K/uL RBC (4.7-6.1) M/uL Hgb (14.0-18.0) g/dL POC Hgb 13.6 L (14.0-18.0) g/dl Hct (42-52) % POC Hct 40 L (42-52) % MCV (80-100) fL MCH (25-34) pg MCHC (32-36) g/dL RDW Std Deviation (36.4-46.3) fL RDW Coeff of Marisela (11.5-14.5) % Plt Count (130-400) K/uL MPV (7.4-10.4) fL Immature Gran % (Auto) % Neut % (Auto) % Lymph % (Auto) % Winn % (Auto) % Eos % (Auto) % Baso % (Auto) % Neut # (Auto) (1.4-6.5) K/uL Lymph # (Auto) (1.2-3.4) K/uL Winn # (Auto) (0.11-0.59) K/uL Eos # (Auto) (0-0.5) K/uL Baso # (Auto) (0-0.2) K/uL Immature Gran # (Auto) (0.00-0.02) K/uL PT (9.0-12.0) Seconds INR (0.9-1.1) APTT (21.0-31.0) Seconds PTT Ratio POC Sodium 141 (135-144) mmol/L Sodium (136-145) mmol/L POC Potassium 4.2 (3.3-5.0) mmol/L Potassium (3.5-5.1) mmol/L POC Chloride 101 (101-112) mmol/L Chloride (98-107) mmol/L Carbon Dioxide (21-32) mmol/L POC Total CO2 28 (24-31) mmol/L Anion Gap (3-11) POC Anion Gap 18.0 (16-25) mmol/L POC BUN 21 H (7-18) mg/dl BUN (7-18) mg/dl Creatinine (0.6-1.4) mg/dl POC Creatinine 1.1 (0.6-1.3) mg/dl Est Cr Clr Drug Dosing ml/min Est GFR ( Amer) ml/min Est GFR (Non-Af Amer) ml/min BUN/Creatinine Ratio (10-20) Glucose (70-99) mg/dl POC Glucose (other) 132 H (70-99) mg/dl Calcium (8.5-10.1) mg/dl POC Ioniz Calcium Ashley 1.29 (1.12-1.32) mmol/l Magnesium 2.2 (1.8-2.4) mg/dl Total Bilirubin (0.2-1) mg/dl AST (15-37) U/L ALT (12-78) U/L Alkaline Phosphatase (45-117) U/L Troponin I < 0.015 (0-0.045) ng/ml Total Protein (6.4-8.2) gm/dl Albumin (3.4-5.0) gm/dl Globulin (2.5-4.0) gm/dl Albumin/Globulin Ratio (0.9-2) Lipase 71 L (73-393) U/L TSH 1.660 (0.300-4.500) uIu/ml COVID-19 Eval Order Covid19 at [facility] Imaging Data Radiologist's Impression: Chest CTA 12/31/20 20:17 CHEST CTA for AORTIC DISSECTION, ABDOMEN AND PELVIS CTA FOR AORTIC DISSECTION CT DOSE: HISTORY: epigastric pain, severe TECHNIQUE: Multiaxial CT images of the chest, abdomen, and pelvis were performed both before and after the intravenous administration of contrast to evaluate the aorta. Maximal intensity projection images were also obtained. A dose lowering technique was utilized adhering to the principles of ALARA. COMPARISON STUDY: None. FINDINGS: Chest CTA: Noncontrast imaging through the chest shows no evidence for an intramural hematoma within the thoracic aorta. Moderate to severe calcified rudy que within the coronary arteries. Normal caliber thoracic aorta with no evidence for dissection. The main pulmonary arteries appear patent. The heart is borderline enlarged. No pleural or pericardial effusions. Normal esophagus. No left hilar lymphadenopathy. A few prominent right paratracheal and right hilar lymph nodes. Dominant right hilar lymph node measures 1 cm in short axis diameter. Dominant right paratracheal lymph node measures 11 mm in short axis diameter. There is a left shoulder prosthesis which is partially visualized. No suspicious lytic or blastic osseous lesions. No pneumothorax. The central airways are patent. Mild respiratory motion artifact. A few bibasilar linear densities favor subsegmental atelectasis. Otherwise, no focal lung consolidations to suggest pneumonia. A 4 mm nodule within the right middle lobe on image 145. Abdomen/pelvis CTA: No pneumoperitoneum. No pneumatosis. No fractures within the visualized osseous structures. Small fat-containing left inguinal hernia. A few calcified nodules within the left side of the mesentery. This is likely benign. The prostate gland is enlarged. Bladder is not well-distended. There is mild bl adder wall thickening. This favors chronic outlet obstruction. No pelvic free fluid. The liver, gallbladder, spleen, adrenal glands, and pancreas are unremarkable. Bilateral cortical renal thinning. No hydronephrosis. There is an indeterminate 8 mm exophytic lesion within the upper pole the left kidney image 159. This is technically indeterminate but does not clearly represent a simple cyst. No retroperitoneal or pelvic lymphadenopathy. A few colonic diverticula. No evidence for acute diverticulitis. Moderate well-formed stool seen within the colon. No bowel wall thickening or obstruction. Normal caliber abdominal aorta with no evidence for dissection. The celiac artery, superior mesenteric artery, inferior mesenteric artery, and iliac arteries are widely patent. No aneurysms identified. Mild calcified plaque within the iliac arteries. IMPRESSION: 1. No evidence for an aortic dissection or aneurysm. 2. A few prominent right paratracheal and right hilar lymph nodes as described above. These are nonspecific. Consider six-month follow-up chest CT to ensure stability. 3. A 4 mm indeterminate pulmonary nodule within the right middle lobe. Please refer to the chart below for recommended follow-up. 4. There is an indeterminate 8 mm exophytic lesion within the upper pole the left kidney which is technically indeterminate but does not clearly represent a simple cyst. Follow-up nonemergent dedicated renal MRI can be used to evaluate for a solid renal mass. 5. No bowel wall thickening or obstruction. 6. Additional findings as described above. ACT 112: Negative or not required by law. Electronically signed by: Javier Mendiola M.D. 12/31/2020 9:39 PM Abdomen/Pelvis CTA 12/31/20 20:27 CHEST CTA for AORTIC DISSECTION, ABDOMEN AND PELVIS CTA FOR AORTIC DISSECTION CT DOSE: HISTORY: epigastric pain, severe TECHNIQUE: Multiaxial CT images of the chest, abdomen, and pelvis were performed both before and after the intravenous administration of contrast to evaluate the aorta. Maximal intensity projection images were also obtained. A dose lowering technique was utilized adhering to the principles of ALARA. COMPARISON STUDY: None. FINDINGS: Chest CTA: Noncontrast imaging through the chest shows no evidence for an intramural hematoma within the thoracic aorta. Moderate to severe calcified plaque within the coronary arteries. Normal caliber thoracic aorta with no evidence for dissection. The main pulmonary arteries appear patent. The heart is borderline enlarged. No pleural or pericardial effusions. Normal esophagus. No left hilar lymphadenopathy. A few prominent right paratracheal and right hilar lymph nodes. Dominant right hilar lymph node measures 1 cm in short axis diameter. Dominant right paratracheal lymph node measures 11 mm in short axis diameter. There is a left shoulder prosthesis which is partially visualized. No suspicious lytic or blastic osseous lesions. No pneumothorax. The central airways are patent. Mild respiratory motion artifact. A few bibasilar linear densities favor subsegmental atelectasis. Otherwise, no focal lung consolidations to suggest pneumonia. A 4 mm nodule within the right middle lobe on image 145. Abdomen/pelvis CTA: No pneumoperitoneum. No pneumatosis. No fractures within the visualized osseous structures. Small fat-containing left inguinal hernia. A few calcified nodules within the left side of the mesentery. This is likely benign. The prostate gland is enlarged. Bladder is not well-distended. There is mild bladder wall thickening. This favors chronic outlet obstruction. No pelvic free fluid. The liver, gallbladder, spleen, adrenal glands, and pancreas are unremarkable. Bilateral cortical renal thinning. No hydronephrosis. There is an indeterminate 8 mm exophytic lesion within the upper pole the left kidney image 159. This is technically indeterminate but does not clearly represent a simple cyst. No retroperitoneal or pelvic lymphadenopathy. A few colonic diverticula. No evidence for acute diverticulitis. Moderate well-formed stool seen within the colon. No bowel wall thickening or obstruction. Normal caliber abdominal aorta with no evidence for dissection. The celiac artery, superior mesenteric artery, inferior mesenteric artery, and iliac arteries are widely patent. No aneurysms identified. Mild calcified plaque within the iliac arteries. IMPRESSION: 1. No evidence for an aortic dissection or aneurysm. 2. A few prominent right paratracheal and right hilar lymph nodes as described above. These are nonspecific. Consider six-month follow-up chest CT to ensure stability. 3. A 4 mm indeterminate pulmonary nodule within the right middle lobe. Please refer to the chart below for recommended follow-up. 4. There is an indeterminate 8 mm exophytic lesion within the upper pole the left kidney which is technically indeterminate but does not clearly represent a simple cyst. Follow-up nonemergent dedicated renal MRI can be used to evaluate for a solid renal mass. 5. No bowel wall thickening or obstruction. 6. Additional findings as described above. ACT 112: Negative or not required by law. Electronically signed by: Javier Mendiola M.D. 12/31/2020 9:39 PM US GALLBLADDER: Compared to CT from earlier today Mildly distended gallbladder. 7 mm dependent echogenic focus. This is not clearly a stone as there is no acoustic shadowing. Consider tumefactive sludge. No wall thickening or pericholecystic fluid, but business resiliency manager does report a Moore sign. No biliary ductal dilation. Radiologist: Bert Archer M.D. Study ready at 22:53 and initial results transmitted at 23:30 ECG Data Attestation: I personally reviewed and interpreted this ECG as follows: Indication: + abdominal pain Rate (beats per minute): 46 Rhythm: + sinus bradycardia ECG Intervals/blocks: + Normal QT-c ECG [place]: + Normal ECG ST segments: + repolarization abnormalities (Nonspecific T wave abnormality) ECG Findings: no PACs and no PVCs Blood Pressure Blood Pressure Findings: Elevated blood pressure Blood Pressure Disposition: further management by hospitalist MDM Narrative This patient was evaluated and appeared to be in no distress. Patient did complain of significant pain. The pain was largely not reproducible on exam. IV access was obtained and laboratory work was drawn. An order for cardiac monitoring was placed and the patient is noted to be in a sinus bradycardia at 51 bpm. Patient was medicated with IV fentanyl and IV Zofran. Given the severe nature of the pain as well as the vague description, CT angiogram was performed of the chest and abdomen over concern for aortic dissection/AAA. The study is negative. On reevaluation of the patient, the pain seems to be more localized to the right upper quadrant. CT imaging was reviewed once again and reveals a normal-appearing gallbladder however given the tenderness on exam and ultrasound was performed. The study reveals no evidence of acute cholecystitis but there is a mildly distended gallbladder and a question of stone versus sludge. EKG and troponin are negative. Patient's case was discussed with general surgery and the hospitalist service. Patient will be evaluated for further management. He was made aware of the findings and agrees. Impression & Plan Acute upper abdominal pain, Cholecystitis Discharge Plan Visit Data Chief Complaint: Abdominal Pain Stated Complaint: ab pain ED Provider: Yanely Clayton Discharge Problem: Acute upper abdominal pain, Cholecystitis Forms Stand Alone Forms: [facility] Prescriptions Prescriptions: No Action atorvastatin 20 mg tablet 20 mg PO Q OTHER DAY RF: 0 amlodipine 5 mg tablet 5 mg PO Q OTHER DAY RF: 0 aspirin 81 mg Tablet,Delayed Release (Dr/Ec) 81 mg PO Q OTHER DAY RF: 0 garlic 1,000 mg Capsule 1,000 mg PO Q OTHER DAY RF: 0 pantoprazole 40 mg tablet,delayed release (DR/EC) 40 mg PO Q OTHER DAY RF: 0 coenzyme Q10 [CoQ-10] 100 mg Capsule 100 mg PO Q OTHER DAY RF: 0 calcium carbonate-vitamin D3 [Calcium 600 + D(3)] 600 mg(1,500mg) -400 unit Tablet 1 tab PO Q OTHER DAY RF: 0 omega 1-ivv-pij-fish oil [Fish Oil] 1,000 mg (120 mg-180 mg) Capsule 1 cap PO Q OTHER DAY RF: 0
[2021-01-01] MEDS ORDERED: amLODIPine BESYLATE 5 MG TAB PO STA (00:25)
[2021-01-01 00:42] LABS: Magnesium 2.2 mg/dl (1.8-2.4)
--- NOTE | 2021-01-01 00:55 | History & Physical Report ---
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 until HIDA scan results known Outpatient follow-up imaging for solitary pulmonary nodule and left renal mass Check hemoglobin A1c DVT prophylaxis. SCDs Re: Thrombocytopenia DNR Text document was generated using [employer] voice recognition software. It may contain grammatical or spelling errors. Kindly contact undersigned for clarification of any documentation item in question. History of Present Illness Chief Complaint: Abdominal pain Primary Care Provider: Frederick Ortiz MD History obtained from patient and records. 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 Last confinement 2016 under Orthopedics service for elective left shoulder surgery. Yesterday morning a few hours after breakfast, patient noted achy right upper quadrant/epigastric pain with nausea. No emesis. No change in bowel habits. No fever, no chills, no chest pain no S OB. No headaches. No prior episodes in the past. Patient brought to the ER for evaluation by . 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, lives with Allergies Allergy/AdvReac Type Severity Reaction Status Date / Time tramadol AdvReac Intermediate NAUSEA Verified 12/31/20 20:57 Home Medications Medication Instructions Recorded Confirmed Type amlodipine 5 mg PO Q OTHER DAY 12/31/20 12/31/20 History aspirin 81 mg PO Q OTHER DAY 12/31/20 12/31/20 History atorvastatin 20 mg PO Q OTHER DAY 12/31/20 12/31/20 History calcium carbonate-vitamin D3 1 tab PO Q OTHER DAY 12/31/20 12/31/20 History [Calcium 600 + D(3)] coenzyme Q10 [CoQ-10] 100 mg PO Q OTHER DAY 12/31/20 12/31/20 History garlic 1,000 mg PO Q OTHER DAY 12/31/20 12/31/20 History omega 5-pbw-spj-fish oil [Fish Oil] 1 cap PO Q OTHER DAY 12/31/20 12/31/20 History pantoprazole 40 mg PO Q OTHER DAY 12/31/20 12/31/20 History Past Med/Surg History Medical History (Updated 01/01/21 @ 03:21 by Trever Wilder MD) Allergic reaction Coronary artery disease Hyperlipidemia Hypertension Leukemia Neutropenia Osteoarthritis of shoulder Surgical History (Updated 01/01/21 @ 01:13 by Rolan Orozco PA-C) History of cardiac catheterization Social History Smoking Status: Never smoker Hx Alcohol Use: No Hx Substance Use: No Preferred Language: Sami Communication Ability: Effective [employer] Librarian Required: No Beliefs That Will Affect Care: None marital status: Current Living Situation: Spouse Feels Safe at Home: Yes Safety Concerns: Feels Safe At This Time Assistive Devices: Glasses Review of Systems Review of Systems: As per HPI, all 10 systems reviewed, all other ROS negative Physical Exam Physical Exam: GENERAL: Slightly uncomfortable, pleasant, no respiratory distress SKIN: Normal color, warm HEENT: [place] palpebral conjunctivae, no ptosis, dry buccal mucosa NECK : Supple, no tenderness CHEST : CTA, no tenderness HEART : Bradycardic, no obvious murmurs ABDOMEN: Some distention, epigastric tenderness EXTREMITIES : No LE swelling/tenderness, no other conspicuous deformities noted NEUROLOGIC : Coherent, no facial asymmetry, mild hearing impairment, no other gross focality Results & Data Results & Data ([facility]) Vital Signs (Past 12 Hours) Vital Signs Temp Pulse Pulse Resp BP BP Pulse Ox 01/01/21 00:39 51 L 15 159/83 H 95 01/01/21 00:30 51 L 17 155/84 H 92 01/01/21 00:21 51 L 12 170/82 H 97 01/01/21 00:16 52 L 14 175/77 H 96 12/31/20 23:50 58 L 13 171/80 H 97 12/31/20 23:40 55 L 18 181/79 H 95 12/31/20 23:30 52 L 15 183/100 H 95 12/31/20 23:20 52 L 18 177/82 H 97 12/31/20 21:41 48 L 14 99 12/31/20 21:40 47 L 15 153/72 H 99 12/31/20 21:31 46 L 12 94 12/31/20 21:30 48 L 16 142/70 H 96 12/31/20 21:21 48 L 13 96 12/31/20 21:20 48 L 12 140/64 97 12/31/20 21:10 48 L 13 130/60 91 12/31/20 21:01 48 L 9 L 92 12/31/20 21:00 49 L 14 133/70 94 12/31/20 20:51 36 C L 54 L 14 144/68 H 89 L 12/31/20 20:50 50 L 8 L 144/68 H 94 12/31/20 20:44 51 L 14 141/77 H 98 12/31/20 20:41 50 L 10 L 97 12/31/20 20:40 58 L 14 178/84 H 98 12/31/20 20:39 58 L 11 L 96 12/31/20 20:15 175/78 H 12/31/20 20:01 36.3 C L 65 18 155/82 H 95 Laboratory Results Laboratory Results WBC 6.45 K/uL (4.8-10.8) 12/31/20 20:20 RBC 4.11 M/uL (4.7-6.1) L 12/31/20 20:20 Hgb 14.0 g/dL (14.0-18.0) 12/31/20 20:20 POC Hgb 13.6 g/dl (14.0-18.0) L 12/31/20 20:24 Hct 41.1 % (42-52) L 12/31/20 20:20 POC Hct 40 % (42-52) L 12/31/20 20:24 MCV 100.0 fL (80-100) 12/31/20 20:20 MCH 34.1 pg (25-34) H 12/31/20 20:20 MCHC 34.1 g/dL (32-36) 12/31/20 20:20 RDW Std Deviation 50.8 fL (36.4-46.3) H 12/31/20 20:20 RDW Coeff of Marisela 14.0 % (11.5-14.5) 12/31/20 20:20 Plt Count 104 K/uL (130-400) L 12/31/20 20:20 MPV 11.0 fL (7.4-10.4) H 12/31/20 20:20 Immature Gran % (Auto) 0.0 % 12/31/20 20:20 Neut % (Auto) 72.8 % 12/31/20 20:20 Lymph % (Auto) 14.3 % 12/31/20 20:20 [place] % (Auto) 9.1 % 12/31/20 20:20 Eos % (Auto) 3.6 % 12/31/20 20:20 Baso % (Auto) 0.2 % 12/31/20 20:20 Neut # (Auto) 4.70 K/uL (1.4-6.5) 12/31/20 20:20 Lymph # (Auto) 0.92 K/uL (1.2-3.4) L 12/31/20 20:20 [place] # (Auto) 0.59 K/uL (0.11-0.59) 12/31/20 20:20 Eos # (Auto) 0.23 K/uL (0-0.5) 12/31/20 20:20 Baso # (Auto) 0.01 K/uL (0-0.2) 12/31/20 20:20 Immature Gran # (Auto) 0.00 K/uL (0.00-0.02) 12/31/20 20:20 PT 10.3 Seconds (9.0-12.0) 12/31/20 20:20 INR 1.0 (0.9-1.1) 12/31/20 20:20 APTT 26.5 Seconds (21.0-31.0) 12/31/20 20:20 PTT Ratio 1.0 12/31/20 20:20 POC Sodium 141 mmol/L (135-144) 12/31/20 20:24 Sodium 141 mmol/L (136-145) 12/31/20 20:20 POC Potassium 4.2 mmol/L (3.3-5.0) 12/31/20 20:24 Potassium 4.2 mmol/L (3.5-5.1) 12/31/20 20:20 POC Chloride 101 mmol/L (101-112) 12/31/20 20:24 Chloride 107 mmol/L (98-107) 12/31/20 20:20 Carbon Dioxide 28 mmol/L (21-32) 12/31/20 20:20 POC Total CO2 28 mmol/L (24-31) 12/31/20 20:24 Anion Gap 6.0 (3-11) 12/31/20 20:20 POC Anion Gap 18.0 mmol/L (16-25) 12/31/20 20:24 POC BUN 21 mg/dl (7-18) H 12/31/20 20:24 BUN 19 mg/dl (7-18) H 12/31/20 20:20 Creatinine 1.07 mg/dl (0.6-1.4) 12/31/20 20:20 POC Creatinine 1.1 mg/dl (0.6-1.3) 12/31/20 20:24 Est Cr Clr Drug Dosing 58.4 ml/min 12/31/20 20:20 Est GFR ( Amer) 74.5 ml/min 12/31/20 20:20 Est GFR (Non-Af Amer) 64.3 ml/min 12/31/20 20:20 BUN/Creatinine Ratio 17.9 (10-20) 12/31/20 20:20 Glucose 132 mg/dl (70-99) H 12/31/20 20:20 POC Glucose (other) 132 mg/dl (70-99) H 12/31/20 20:24 Calcium 9.8 mg/dl (8.5-10.1) 12/31/20 20:20 POC Ioniz Calcium Ashley 1.29 mmol/l (1.12-1.32) 12/31/20 20:24 Magnesium 2.2 mg/dl (1.8-2.4) 12/31/20 22:11 Total Bilirubin 1.1 mg/dl (0.2-1) H 12/31/20 20:20 AST 22 U/L (15-37) 12/31/20 20:20 ALT 27 U/L (12-78) 12/31/20 20:20 Alkaline Phosphatase 87 U/L (45-117) 12/31/20 20:20 Troponin I < 0.015 ng/ml (0-0.045) 12/31/20 22:11 Total Protein 7.3 gm/dl (6.4-8.2) 12/31/20 20:20 Albumin 4.0 gm/dl (3.4-5.0) 12/31/20 20:20 Globulin 3.3 gm/dl (2.5-4.0) 12/31/20 20:20 Albumin/Globulin Ratio 1.2 (0.9-2) 12/31/20 20:20 Lipase 71 U/L (73-393) L 12/31/20 22:11 TSH 1.660 uIu/ml (0.300-4.500) 12/31/20 22:11 COVID-19 Eval Order Covid19 at [facility] 01/01/21 00:15 Impressions Chest CTA 12/31/20 20:17 CHEST CTA for AORTIC DISSECTION, ABDOMEN AND PELVIS CTA FOR AORTIC DISSECTION CT DOSE: HISTORY: epigastric pain, severe TECHNIQUE: Multiaxial CT images of the chest, abdomen, and pelvis were performed both before and after the intravenous administration of contrast to evaluate the aorta. Maximal intensity projection images were also obtained. A dose lowering technique was utilized adhering to the principles of ALARA. COMPARISON STUDY: None. FINDINGS: Chest CTA: Noncontrast imaging through the chest shows no evidence for an intramural hematoma within the thoracic aorta. Moderate to severe calcified plaque within the coronary arteries. Normal caliber thoracic aorta with no evidence for dissection. The main pulmonary arteries appear patent. The heart is borderline enlarged. No pleural or pericardial effusions. Normal esophagus. No left hilar lymphadenopathy. A few prominent right paratracheal and right hilar lymph nodes. Dominant right hilar lymph node measures 1 cm in short axis diameter. Dominant right paratracheal lymph node measures 11 mm in short axis diameter. There is a left shoulder prosthesis which is partially visualized. No suspicious lytic or blastic osseous lesions. No pneumothorax. The central airways are patent. Mild respiratory motion artifact. A few bibasilar linear densities favor subsegmental atelectasis. Otherwise, no focal lung consolidations to suggest pneumonia. A 4 mm nodule within the right middle lobe on image 145. Abdomen/pelvis CTA: No pneumoperitoneum. No pneumatosis. No fractures within the visualized osseous structures. Small fat-containing left inguinal hernia. A few calcified nodules within the left side of the mesentery. This is likely benign. The prostate gland is enlarged. Bladder is not well-distended. There is mild bladder wall thickening. This favors chronic outlet obstruction. No pelvic free fluid. The liver, gallbladder, spleen, adrenal glands, and pancreas are unremarkable. Bilateral cortical renal thinning. No hydronephrosis. There is an indeterminate 8 mm exophytic lesion within the upper pole the left kidney image 159. This is technically indeterminate but does not clearly represent a simple cyst. No retroperitoneal or pelvic lymphadenopathy. A few colonic diverticula. No evidence for acute diverticulitis. Moderate well-formed stool seen within the colon. No bowel wall thickening or obstruction. Normal caliber abdominal aorta with no evidence for dissection. The celiac artery, superior mesenteric artery, inferior mesenteric artery, and iliac arteries are widely patent. No aneurysms identified. Mild calcified plaque within the iliac arteries. IMPRESSION: 1. No evidence for an aortic dissection or aneurysm. 2. A few prominent right paratracheal and right hilar lymph nodes as described above. These are nonspecific. Consider six-month follow-up chest CT to ensure stability. 3. A 4 mm indeterminate pulmonary nodule within the right middle lobe. Please refer to the chart below for recommended follow-up. 4. There is an indeterminate 8 mm exophytic lesion within the upper pole the left kidney which is technically indeterminate but does not clearly represent a simple cyst. Follow-up nonemergent dedicated renal MRI can be used to evaluate for a solid renal mass. 5. No bowel wall thickening or obstruction. 6. Additional findings as described above. ACT 112: Negative or not required by law. Electronically signed by: Javier Mendiola M.D. 12/31/2020 9:39 PM Abdomen/Pelvis CTA 12/31/20 20:27 CHEST CTA for AORTIC DISSECTION, ABDOMEN AND PELVIS CTA FOR AORTIC DISSECTION CT DOSE: HISTORY: epigastric pain, severe TECHNIQUE: Multiaxial CT images of the chest, abdomen, and pelvis were performed both before and after the intravenous administration of contrast to evaluate the aorta. Maximal intensity projection images were also obtained. A dose lowering technique was utilized adhering to the principles of ALARA. COMPARISON STUDY: None. FINDINGS: Chest CTA: Noncontrast imaging through the chest shows no evidence for an intramural hematoma within the thoracic aorta. Moderate to severe calcified plaque within the coronary arteries. Normal caliber thoracic aorta with no evidence for dissection. The main pulmonary arteries appear patent. The heart is borderline enlarged. No pleural or pericardial effusions. Normal esophagus. No left hilar lymphadenopathy. A few prominent right paratracheal and right hilar lymph nodes. Dominant right hilar lymph node measures 1 cm in short axis diameter. Dominant right paratracheal lymph node measures 11 mm in short axis diameter. There is a left shoulder prosthesis which is partially visualized. No suspicious lytic or blastic osseous lesions. No pneumothorax. The central airways are patent. Mild respiratory motion artifact. A few bibasilar linear densities favor subsegmental atelectasis. Otherwise, no focal lung consolidations to suggest pneumonia. A 4 mm nodule within the right middle lobe on image 145. Abdomen/pelvis CTA: No pneumoperitoneum. No pneumatosis. No fractures within the visualized osseous structures. Small fat-containing left inguinal hernia. A few calcified nodules within the left side of the mesentery. This is likely benign. The prostate gland is enlarged. Bladder is not well-distended. There is mild bladder wall thickening. This favors chronic outlet obstruction. No pelvic free fluid. The liver, gallbladder, spleen, adrenal glands, and pancreas are unremarkable. Bilateral cortical renal thinning. No hydronephrosis. There is an indeterminate 8 mm exophytic lesion within the upper pole the left kidney image 159. This is technically indeterminate but does not clearly represent a simple cyst. No retroperitoneal or pelvic lymphadenopathy. A few colonic diverticula. No evidence for acute diverticulitis. Moderate well-formed stool seen within the colon. No bowel wall thickening or obstruction. Normal caliber abdominal aorta with no evidence for dissection. The celiac artery, superior mesenteric artery, inferior mesenteric artery, and iliac arteries are widely patent. No aneurysms identified. Mild calcified plaque within the iliac arteries. IMPRESSION: 1. No evidence for an aortic dissection or aneurysm. 2. A few prominent right paratracheal and right hilar lymph nodes as described above. These are nonspecific. Consider six-month follow-up chest CT to ensure stability. 3. A 4 mm indeterminate pulmonary nodule within the right middle lobe. Please refer to the chart below for recommended follow-up. 4. There is an indeterminate 8 mm exophytic lesion within the upper pole the left kidney which is technically indeterminate but does not clearly represent a simple cyst. Follow-up nonemergent dedicated renal MRI can be used to evaluate for a solid renal mass. 5. No bowel wall thickening or obstruction. 6. Additional findings as described above. ACT 112: Negative or not required by law. Electronically signed by: Javier Mendiola M.D. 12/31/2020 9:39 PM Diagnostic Findings Ultrasound gallbladder initial read: Mildly distended gallbladder. 7 mm dependent echogenic focus. Not clearly a stone as there is no acoustic shadowing. Consider tumefactive sludge. No Moore sign, no wall thickening. No biliary ductal dilatation. EKG as per my interpretation rate 45, sinus bradycardia, normal axis, diffuse T wave flattening
[2021-01-01] MEDS ORDERED: PROMETHAZINE HCL 12.5 MG in SODIUM CHLORIDE 0.9% 50 ML IV STA (01:00)
[2021-01-01] MEDS ORDERED: PROMETHAZINE 12.5 MG/50.5 ML NSS IV ONE (01:04)
--- NOTE | 2021-01-01 01:08 | Surgery Consultation ---
Date of Consultation January 01, 2021 Assessment & Plan (1) Abdominal pain: Patient is being admitted to the hospital on the medical service. We recommend proceeding as follows: The etiology of his abdominal pain is unclear, but his gallbladder is noted to be distended on ultrasound without gallbladder wall thickening or pericholecystic fluid As the gallbladder ultrasound does not conclusively identify cholecystitis we will check a HIDA scan Recommend keeping the patient n.p.o. for the present time Hydrate gently with IV fluids Provide analgesics Provide antiemetics As the patient does not have clear evidence of cholecystitis we will not initiate antibiotics at the present time Further recommendation was made based on the HIDA scan once results are available Remainder of plan as directed by primary service Recommend utilizing SCDs for DVT prevention. Recommend holding on chemical means of DVT prevention until we are certain procedure intervention is not required History of Present Illness Reason for Consultation: Abdominal pain History of Present Illness This is an 80-year-old male who presented to [facility] emergency department secondary to abdominal pain that began this morning. Patient said that he ate a light breakfast this morning and several hours later he developed pain located in the periumbilical and epigastric region of his abdomen. He said he did not identify any provocative factors. He notes that the pain is substernally been palliated by medicines that were ministered in the emergency department. Patient says the pain does not radiate anywhere. He says that over the past several months he has not exhibited any postprandial pain. With this current episode he did not have any nausea or vomiting. He denies any fevers, shakes, chills. He denies any chest pain or shortness of breath. He denies any prior abdominal surgeries. In the emergency department the patient did have labs and imaging which I independently reviewed.Labs include a CBC where his white blood cell count and hemoglobin were normal. Patient's platelet count was slightly low at 104,000. Coagulation studies were noted to be normal. Chemistry profile showed that his sodium and potassium were normal. BUN had a slight elevation at 19 but his creatinine was normal. There is no significant elevation of patient's LFTs or l ipase. He did have cardiac enzymes checked which were negative. Patient did have imaging including a CT angiogram of his chest, abdomen and pelvis. This showed no evidence of aortic dissection or aneurysm. Patient was noted to have some prominent right paratracheal and right hilar lymph nodes along with a right middle lobe lung nodule measuring 4 mm in size. Patient is also noted to have an 8 mm lesion of the upper pole of the left kidney. A gallbladder ultrasound was performed and did show a mildly distended gallbladder with no wall thickening or pericholecystic fluid.. An EKG showed sinus bradycardia and did not exhibit any signs of acute ischemia. Covid test has been performed and is pending. I did question patient about her cardiac history. The patient says that approximately 15 years ago he did have a cardiac catheterization with stent placement. Since prior to his catheterization he did not suffer a heart attack. He says to the best of his recollection he had an abnormal stress test which prompted the cardiac catheterization. At that time he was not exhibiting any signs or symptoms of unstable angina. He notes that since that time he has been doing well. 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 He also adds that he did have a stress test within the past month and to the best of his knowledge was without any abnormalities. He noted that stress test was performed as he was told by his primary care physician he had an abnormal EKG, which was performed as part of an annual wellness check. He does follow locally with Dr. Kyle Porras of [facility] cardiology. In addition to the patient's cardiac history he does report a history of acute leukemia approximately 4 years ago. Patient notes that he was treated at [facility] in [place], [place]. Patient is unsure of his exact treatment but believes he received chemotherapy and does not think he had a bone marrow transplant. He does note that to the best of his knowledge his leukemia is in remission and he has not had any problems since his treatment. At the time of my interview the patient was resting comfortably in bed and he was in no pain or distress. Allergies Allergy/AdvReac Type Severity Reaction Status Date / Time tramadol AdvReac Intermediate NAUSEA Verified 12/31/20 20:57 Home Medications Medication Instructions Recorded Confirmed Type amlodipine 5 mg PO Q OTHER DAY 12/31/20 12/31/20 History aspirin 81 mg PO Q OTHER DAY 12/31/20 12/31/20 History atorvastatin 20 mg PO Q OTHER DAY 12/31/20 12/31/20 History calcium carbonate-vitamin D3 1 tab PO Q OTHER DAY 12/31/20 12/31/20 History [Calcium 600 + D(3)] coenzyme Q10 [CoQ-10] 100 mg PO Q OTHER DAY 12/31/20 12/31/20 History garlic 1,000 mg PO Q OTHER DAY 12/31/20 12/31/20 History omega 5-uqc-knj-fish oil [Fish Oil] 1 cap PO Q OTHER DAY 12/31/20 12/31/20 History pantoprazole 40 mg PO Q OTHER DAY 12/31/20 12/31/20 History Patient History Medical History (Updated 01/01/21 @ 01:14 by Rolan Orozco PA-C) Allergic reaction Coronary artery disease Hyperlipidemia Hypertension Leukemia Neutropenia Osteoarthritis of shoulder Surgical History (Updated 01/01/21 @ 01:13 by Rolan Orozco PA-C) History of cardiac catheterization Social History Smoking Status: Never smoker Preferred Language: Swedish marital status: Feels Safe at Home: Yes Review of Systems Constitutional: no fever and no chills Eyes: no diplopia Ear, Nose, Mouth, Throat: no ear pain Respiratory: no cough and no dyspnea Cardiovascular: no chest pain Gastrointestinal: + abdominal pain; no nausea and no vomiting Genitourinary: no dysuria Musculoskeletal: no back pain Integumentary: no rash Neurologic: no localized weakness Physical Exam Constitutional: well developed and well nourished; no acute distress Eyes: no conjunctival abnormality ENMT: Ears: no hearing impairment Neck: trachea midline Respiratory: normal respiratory effort, lungs clear to auscultation Cardiovascular: Rate/Rhythm: regular rate and regular rhythm Vessels: nilda salis pedis pulses present and radial pulses present Gastrointestinal (Abdomen): Abdomen is soft and nondistended with positive bowel sounds. There is no rebound tenderness or guarding. Patient did have small amount of pain located in the right upper quadrant with deep palpation. Moore sign is negative at the time my exam. Skin: no rashes, warm and dry Neurologic: moves all extremities Psychiatric: A+Ox3, euthymic affect Results & Data ([place]) Vital Signs (Past 12 Hours) Vital Signs Temp Pulse Pulse Resp BP BP Pulse Ox 01/01/21 00:39 51 L 15 159/83 H 95 01/01/21 00:30 51 L 17 155/84 H 92 01/01/21 00:21 51 L 12 170/82 H 97 01/01/21 00:16 52 L 14 175/77 H 96 12/31/20 23:50 58 L 13 171/80 H 97 12/31/20 23:40 55 L 18 181/79 H 95 12/31/20 23:30 52 L 15 183/100 H 95 12/31/20 23:20 52 L 18 177/82 H 97 12/31/20 21:41 48 L 14 99 12/31/20 21:40 47 L 15 153/72 H 99 12/31/20 21:31 46 L 12 94 12/31/20 21:30 48 L 16 142/70 H 96 12/31/20 21:21 48 L 13 96 12/31/20 21:20 48 L 12 140/64 97 12/31/20 21:10 48 L 13 130/60 91 12/31/20 21:01 48 L 9 L 92 12/31/20 21:00 49 L 14 133/70 94 12/31/20 20:51 36 C L 54 L 14 144/68 H 89 L 12/31/20 20:50 50 L 8 L 144/68 H 94 12/31/20 20:44 51 L 14 141/77 H 98 12/31/20 20:41 50 L 10 L 97 12/31/20 20:40 58 L 14 178/84 H 98 12/31/20 20:39 58 L 11 L 96 12/31/20 20:15 175/78 H 12/31/20 20:01 36.3 C L 65 18 155/82 H 95 PG Care Time/CCT Total # of Minutes Spent Total Time Spent with Patient: Total time spent is greater than 50% in coordination of care (as documented) at patient's floor/unit and/or counseling patient: Coding Level of Care Code 54587 Inpt Consult Level 5 Diagnoses Abdominal pain R10.9
[2021-01-01] MEDS ORDERED: PROMETHAZINE HCL 12.5 MG in SODIUM CHLORIDE 0.9% 50 ML IV PRN (02:27)
[2021-01-01] MEDS ORDERED: ACETAMINOPHEN 325 MG TAB PO PRN (02:27)
[2021-01-01] MEDS ORDERED: LACTATED RINGER'S 1,000 ML IV SCH (02:27)
[2021-01-01] MEDS ORDERED: MoRPHine SULFATE 2 MG/ML CARP IV PRN (02:27)
[2021-01-01] MEDS ORDERED: traMADol HCL 50 MG TABLET PO PRN (02:27)
[2021-01-01] MEDS ORDERED: amLODIPine BESYLATE 5 MG TAB PO ONE (03:07)
[2021-01-01] MEDS: oxyCODONE HCL IR 5 MG TAB (IMMEDIATE RELEASE) PO PRN ×2 (05:41→12:54)
[2021-01-01 05:46] LABS: Hematocrit (blood only) 41.3 % (42-52); Hemoglobin 13.9 g/dL (14.0-18.0); Mean Corpuscular Hemoglobin 33.7 pg (25-34); Mean Corpuscular Hgb Conc 33.7 g/dL (32-36); RDW Coefficient of Variation 13.9 % (11.5-14.5); RDW Standard Deviation 50.6 fL (36.4-46.3); Red Blood Count 4.13 M/uL (4.7-6.1); White Blood Count 7.14 K/uL (4.8-10.8)
[2021-01-01 06:10] LABS: Albumin Globulin Ratio 1.3 (0.9-2); Albumin Level 3.9 gm/dl (3.4-5.0); BUN Creatinine Ratio 15.6 (10-20); Bilirubin,Total 1.3 mg/dl (0.2-1); Creatinine Clr Calc Pharmacy 66.5 ml/min; Est GFR (African American) 87.2 ml/min; Est GFR (Non-African American) 75.2 ml/min; Globulin 3.1 gm/dl (2.5-4.0); Potassium 4.5 mmol/L (3.5-5.1)
[2021-01-01 06:19] LABS: Basophils # (auto) 0.02 K/uL (0-0.2); Basophils % (auto) 0.3 %; Eosinophils # (auto) 0.12 K/uL (0-0.5); Eosinophils % (auto) 1.7 %; Immature Granulocytes # (auto) 0.01 K/uL (0.00-0.02); Immature Granulocytes % (auto) 0.1 %; Lymphocytes # (auto) 0.87 K/uL (1.2-3.4); Lymphocytes % (auto) 12.2 %; Mean Platelet Volume 10.8 fL (7.4-10.4); Monocytes # (auto) 0.61 K/uL (0.11-0.59); Monocytes % (auto) 8.5 %; Neutrophils # (auto) 5.51 K/uL (1.4-6.5); Neutrophils % (auto) 77.2 %; Platelet Count 97 K/uL (130-400); Platelet Estimate Decreased (Normal)
[2021-01-01] MEDS: PANTOprazole 40 MG TAB PO SCH (07:46)
[2021-01-01] MEDS: ATORVASTATIN 20 MG TAB PO SCH (07:46)
[2021-01-01] MEDS: ASPIRIN 81 MG ECTAB PO SCH (07:47)
--- NOTE | 2021-01-01 07:52 | Ultrasound Report ---
US gallbladder CLINICAL HISTORY: Abdominal pain. COMPARISON STUDY: CTA of the abdomen and pelvis December 31, 2020. FINDINGS: Liver is sonographically normal. There is no biliary ductal dilatation. The common bile rocio t measures 4 mm in caliber. There is a 7 mm echogenic focus within the gallbladder without associated shadowing. There is no gallbladder wall thickening. A sonographic Moore sign was reported by the so ale. The gallbladder is not significantly distended. Pancreatic body is normal. Head and tail a re obscured. There is no right hydronephrosis. IMPRESSION: 1. 7 mm echogenic nonshadowing focus within the gallbladder. This could reflect a nonshadowing stone or tumefactive sludge. No gallbladder wall thickening. Positive sonographic Moore sign. Although not highly suggestive, acute cholecystitis cannot be excluded and a hepatobiliary scan could be obtained for further evaluation. 2. No biliary ductal dilatation. ACT 112: Negative or not required by law. Electronically signed by: Alf Sidhu M.D. 01/01/2021 7:51 AM
--- NOTE | 2021-01-01 08:04 | Electrocardiogram Report ---
Test Reason : Blood Pressure : / mmHG Vent. Rate : 046 BPM Atrial Rate : 046 BPM P-R Int : 188 ms QRS Dur : 084 ms QT Int : 444 ms P-R-T Axes : 061 006 037 degrees QTc Int : 388 ms Sinus bradycardia Diffuse Nonspecific T wave abnormality Abnormal ECG When compared with ECG of 06-SEP-2016 11:46, T-wave inversion in Anteroseptal leads less pronounced Otherwise no significant change Confirmed by [place] ([id number]) on 01/01/2021 8:04:42 AM Referred By: REFERRED SELF Confirmed By:[place]
[2021-01-01 08:10] LABS: Estimated Average Glucose 100 mg/dl; Hemoglobin A1C 5.1 % (4.5-5.6)
--- NOTE | 2021-01-01 10:19 | Hospitalist Progress Note ---
Date of Service January 01, 2021 Assessment & Plan (1) Abdominal pain: Uncertain source of pain at this point. General surgery is consulted and is working him up. MRCP ordered for this afternoon with results pending. Antiemetics and pain medications as needed. (2) Asymptomatic hypertensive urgency: Likely related to abdominal pain. Cont aggressive pain control measures and amlodipine per home regimen. 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 Diagnosed and treated in 2013 with final hematology visit in 2016. Periodic outpatient hematology follow-up recommended. Thrombocytopenia noted on current bloodwork this admission. (4) Coronary artery disease: chronic, stable, cont medical management with ASA, atorvastatin 20mg daily. Follows with cardiology as outpatient. Recently underwent a NM stress test with results pending. (5) DVT prophylaxis: chemoprophylaxis held in light of possible upcoming procedure/SCDs DNR Dispo-uncertain at this time. [facility]ice [facility] and Anticipated Discharge Date Admission Date: January 01, 2021 Subjective 80 yo M admitted with abdominal pain x 1 day. It has persisted and is not worse with food per his report. He reports recently undergoing a chemical stress test for cardiac evaluation and having 3 forced BMs that followed soon after with the pain starting one day later. He denies further diarrhea and denies fevers or chills. There is no blood per rectum. Pain in the abdomen is generalized and he is requiring pain medication for comfort. General surgery has been consulted and is working up the source of the abdominal pain. MRCP this afternoon with results pending. Some nausea without vomiting present. Review of Systems Review of Systems: All systems reviewed & are unremarkable except as noted in Subjective Physical Exam Physical Exam: CONSTITUTIONAL: WNWD, vitals as above, generally well- appearing EYES: normal conjunctivae, no scleral icterus ENT: external ear and nose normal, MMM RESPIRATORY: clear to auscultation bilaterally, no crackles, rales or wheezes, normal respiratory effort CARDIOVASCULAR: regular rate and rhythm, S1 and 2 heard without murmurs, gallops or rubs, no JVD, no peripheral edema GASTROINTESTINAL: soft, nondistended, generalized tenderness worse in epigastric and RUQ region, some guarding present, no CVA tenderness MUSCULOSKELETAL: strength 5/5 throughout, head is normocephalic and atraumatic SKIN: warm and dry NEUROLOGIC: CN 2-12 grossly intact, no sensory deficit, normal cognition, normal speech, no tremor, no gross focal deficits. PSYCHIATRIC: alert cooperative and oriented to person, place and time. Results & Data Results & Data ([facility]) Vital Signs (Past 12 Hours) Vital Signs Temp Pulse Pulse Resp BP BP Pulse Ox 01/01/21 08:00 36.7 C 59 L 17 148/77 H 96 01/01/21 07:30 58 L 01/01/21 04:05 37.0 C 60 18 156/72 H 95 01/01/21 03:17 58 L 01/01/21 03:13 53 L 157/70 H 01/01/21 02:27 36.7 C 73 20 199/99 H 95 01/01/21 02:01 55 L 16 155/86 H 95 01/01/21 01:00 60 14 172/88 H 96 01/01/21 00:39 51 L 15 159/83 H 95 01/01/21 00:30 51 L 17 155/84 H 92 01/01/21 00:21 51 L 12 170/82 H 97 01/01/21 00:16 52 L 14 175/77 H 96 12/31/20 23:50 58 L 13 171/80 H 97 12/31/20 23:40 55 L 18 181/79 H 95 12/31/20 23:30 52 L 15 183/100 H 95 12/31/20 23:20 52 L 18 177/82 H 97 Pulse Ox 01/01/21 08:00 01/01/21 07:30 01/01/21 04:05 01/01/21 03:17 01/01/21 03:13 01/01/21 02:27 95 01/01/21 02:01 01/01/21 01:00 01/01/21 00:39 01/01/21 00:30 01/01/21 00:21 01/01/21 00:16 12/31/20 23:50 12/31/20 23:40 12/31/20 23:30 12/31/20 23:20 Laboratory Results Short CBC 12/31/20 01/01/21 Range/Units 20:20 05:18 WBC 6.45 7.14 (4.8-10.8) K/uL Hgb 14.0 13.9 L (14.0-18.0) g/dL Hct 41.1 L 41.3 L (42-52) % Plt Count 104 L 97 L (130-400) K/uL BMP 12/31/20 01/01/21 20:20 05:18 Sodium 141 139 Potassium 4.2 4.5 Chloride 107 107 Carbon Dioxide 28 30 BUN 19 H 15 Creatinine 1.07 0.94 Glucose 132 H 109 H Calcium 9.8 9.0 Cardiac Enzymes 12/31/20 Range/Units 22:11 Troponin I < 0.015 (0-0.045) ng/ml Liver Function 12/31/20 01/01/21 Range/Units 20:20 05:18 Total Bilirubin 1.1 H 1.3 H (0.2-1) mg/dl AST 22 16 (15-37) U/L ALT 27 24 (12-78) U/L Alkaline Phosphatase 87 89 (45-117) U/L Albumin 4.0 3.9 (3.4-5.0) gm/dl Medications Administered Current Inpatient Medications Acetaminophen (Acetaminophen 325 Mg Tab) 650 mg PO Q4H PRN PRN Reason: Pain or Fever Stop: 01/31/21 02:26 Amlodipine Besylate (Amlodipine Besylate 5 Mg Tab) 5 mg PO DAILY MICHELLE Stop: 02/01/21 08:59 Aspirin (Aspirin 81 Mg Ectab) 81 mg PO Q2D MICHELLE Stop: 01/31/21 08:59 Last Admin: 01/01/21 07:47 Dose: 81 mg Documented by: Atorvastatin Calcium (Atorvastatin 20 Mg Tab) 20 mg PO Q2D MICHELLE Stop: 01/31/21 08:59 Last Admin: 01/01/21 07:46 Dose: 20 mg Documented by: Promethazine HCl 12.5 mg/ (Sodium Chloride) 50.5 mls @ 202 mls/hr IV Q6H PRN PRN Reason: Nausea And Vomiting Stop: 01/31/21 02:26 Morphine Sulfate (Morphine Sulfate 2 Mg/Ml Carp) 2 mg IV Q3H PRN PRN Reason: Pain Stop: 01/15/21 02:26 Oxycodone HCl (Oxycodone Hcl Ir 5 Mg Tab (Immediate Release)) 5 mg PO Q4H PRN PRN Reason: Pain Stop: 01/15/21 03:08 Last Admin: 01/01/21 05:41 Dose: 5 mg Documented by: Pantoprazole Sodium (Pantoprazole 40 Mg Tab) 40 mg PO Q2D MICHELLE Stop: 01/31/21 08:59 Last Admin: 01/01/21 07:46 Dose: 40 mg Documented by:
--- NOTE | 2021-01-01 12:34 | Nuclear Medicine Report ---
NUCLEAR MEDICINE HEPATOBILIARY SCAN HISTORY: Generalized abdominal pain. COMPARISON: None. TECHNIQUE: Immediately following the intravenous administration of 5 mCi Tc-99m Choletec, dynamic ant erior abdominal imaging was performed. FINDINGS: Uniform hepatic tracer accumulation is shown. Prompt intrahepatic biliary excretion is seen. The gall bladder, common bile duct, and small bowel are all visualized by 60 minutes. This appearance represen ts the normal sequence of biliary excretion. IMPRESSION: 1. No evidence for cystic duct obstruction. ACT 112: Negative or not required by law. Electronically signed by: Javier Mendiola M.D. 01/01/2021 12:33 PM
--- NOTE | 2021-01-01 13:18 | Surgery Progress Note ---
Date of Service January 01, 2021 Assessment & Plan (1) Abdominal pain: ? etiology. HIDA scan negative CT scan reviewed. does not appear to have any surgical problems occuring. if pain persists could consider mesenteric doppler/MRA Admission and Anticipated Discharge Date Admission Date: January 01, 2021 Subjective pt seen earlier this am. was still having mid-abdominal down to RLQ abdominal discomfort. mild nausea but no emesis. Physical Exam Constitutional: WD/WN, vitals as above no acute distress and not ill appearing Eyes: PERRL, conjunctivae normal, anicteric sclerae EOM intact bilaterally ENMT: external ear and nose normal, oropharynx normal Ears: no hearing impairment Neck: trachea midline, no thyromegaly Respiratory: normal respiratory effort; no respiratory distress and does not use accessory muscles Cardiovascular: Rate/Rhythm: regular rate and regular rhythm Gastrointestinal (Abdomen): soft. mild RLQ ttp. no g/r/r. no palpable abnormalities. Skin: no rashes, warm and dry Psychiatric: Orientation: alert, oriented x 3 and cooperative Results & Data ([facility]) Vital Signs (Past 12 Hours) Vital Signs Temp Pulse Pulse Resp BP BP Pulse Ox 01/01/21 08:00 36.7 C 59 L 17 148/77 H 96 01/01/21 07:30 58 L 01/01/21 04:05 37.0 C 60 18 156/72 H 95 01/01/21 03:17 58 L 01/01/21 03:13 53 L 157/70 H 01/01/21 02:27 36.7 C 73 20 199/99 H 95 01/01/21 02:01 55 L 16 155/86 H 95 Pulse Ox 01/01/21 08:00 01/01/21 07:30 01/01/21 04:05 01/01/21 03:17 01/01/21 03:13 01/01/21 02:27 95 01/01/21 02:01 PG Care Time/CCT Total # of Minutes Spent Total Time Spent with Patient: Total time spent is greater than 50% in vacuum kettle cook rdination of care (as documented) at patient's floor/unit and/or counseling patient: Coding Level of Care Code 28178 Subseq Hosp Care Lvl 3 Diagnoses Abdominal pain R10.9
--- NOTE | 2021-01-01 21:36 | Magnetic Resonance Report ---
MRCP CLINICAL HISTORY: upper abdominal pain; elevated bilirubin TECHNIQUE: Utilizing a 1.5 Cinthia magnet and dedicated coil, multiplanar, multiecho imaging of the [facility] er abdomen was performed utilizing heavily T2 weighted pulsing sequences without IV contrast. COMPARISON STUDY: No previous studies for comparison. FINDINGS: Liver is normal in size and signal characteristics and shows no focal lesion or intrahepatic biliary dilatation. Gallbladder is dilated, fluid-filled and show few intraluminal areas of decreased signal likely repre senting gallstones. No definite wall thickening or pericholecystic edema is seen. Common bile duct is nondilated measuring approximately 4 mm in diameter. No evidence of intraluminal filling defect are seen within common bile duct or pancreatic duct. Pancreas is atrophic. Spleen is enlarged. Right adrenal gland is unremarkable. Left adrenal gland is not well seen. Bilateral kidneys shows no evidence of hydronephrosis and few areas of decreased signal within right renal parenchyma which might represent calcifications versus other etiology. Visualized loops of bowel are nondilated. Aorta is tortuous and normal in caliber. IMPRESSION: 1. Fluid-filled dilated gallbladder with few intraluminal calculi. No definite inflammatory changes are seen however dilatation of the gallbladder over 8 cm could be seen in developing cholecystitis. 2. Patent bile ducts without evidence of obstruction or dilatation. 3. No evidence of hepatic lesions. 4. Nondilated loops of bowel. 5. Splenomegaly. ACT 112: Positive. There are findings on this exam that require communication between the performing entity and the patient following Patient Test Result Information Act ([place] Act 112) guidelines. The above report was generated using voice recognition software. It may contain grammatical, syntax o r spelling errors. Electronically signed by: Bita Clark DO 01/01/2021 9:35 PM
[2021-01-01 21:50] LABS: Appearance Urine Clear (Clear); Bacteria Urine Automated Negative (Negative); Bilirubin Urine Negative (Negative); Blood Urine 1+ (Negative); Color Urine Yellow; Glucose Urine UA Negative (Negative); Ketones Urine Trace (Negative); Leukocyte Esterase Urine Negative (Negative); Nitrite Urine Negative (Negative); Protein Urine Negative (Negative); RBC Urine Automated 0-4 /hpf (0-4); Specific Gravity Urine 1.013 (1.000-1.030); Urobilinogen Urine Negative (Negative); pH Urine 5.5 (4.5-7.5)
--- NOTE | 2021-01-01 23:29 | Communication Note ---
Date of Service: January 01, 2021 MRCP report noted: 1. Fluid-filled dilated gallbladder with few intraluminal calculi. No definite inflammatory changes are seen however dilatation of the gallbladder over 8 cm could be seen in developing cholecystitis. 2. Patent bile ducts without evidence of obstruction or dilatation. 3. No evidence of hepatic lesions. 4. Nondilated loops of bowel. 5. Splenomegaly. Dr. Martinez (surgeon monotype machinist) updated of report. Recommends n.p.o. for now.
[2021-01-01] MEDS ORDERED: SODIUM CHLORIDE 0.9% 1000ML 1,000 ML IV SCH (23:30)
--- NOTE | 2021-01-02 07:06 | Surgery Progress Note ---
Date of Service January 02, 2021 Assessment & Plan (1) Abdominal pain: Various tests were reviewed including the most recent MRCP this all points to gallbladder dysfunction probably subacute or resolving acute cholecystitis evidence that this is recommended that the patient proceed with laparoscopic cholecystectomy cholangiogram he would like to proceed as stated above he never wants to have this pain again that he has had Risk and complication of surgery were explained to the patient including bleeding infection converting to an open procedure and he would like to proceed accordingly All questions were answered including the anticipated recovery time The case was discussed with the medical service Dr. 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 and never had any other issues no previous abdominal surgery no cardiac or pulmonary history Physical Exam Physical Exam: Is sitting up in a chair this morning when I saw him without complaints states he normally gets up early in the morning Abdominal exam shows some right upper quadrant guarding Results & Data ([facility]) Vital Signs (Past 12 Hours) Vital Signs Temp Pulse Pulse Resp BP Pulse Ox 01/02/21 04:01 36.7 C 62 18 158/87 H 94 01/01/21 23:11 45 L 01/01/21 22:54 36.6 C 63 18 125/75 96 01/01/21 19:57 36.8 C 64 18 169/77 H 96 PG Care Time/CCT Total # of Minutes Spent Total Time Spent with Patient: Total time spent is greater than 50% in coordination of care (as documented) at patient's floor/unit and/or counseling patient: Coding Level of Care Code 48867 Subseq Hosp Care Lvl 3 Diagnoses Abdominal pain R10.9
--- NOTE | 2021-01-02 07:11 | Anesthesiology Consultation ---
Date of Service January 02, 2021 Assessment & Plan (1) Encounter for pre-operative examination: Chart Review Chart Review: uncrater initiated History Surgery Operation Date: 01/02/21 14:00 Proposed Procedures p Laparoscopic Cholecystectomy - Valeriano Martinez MD, FACS Height/Weight Height: 6 ft Weight: 82 kg Allergies Allergy/AdvReac Type Severity Reaction Status Date / Time tramadol AdvReac Intermediate NAUSEA Verified 12/31/20 20:57 Medications Home Medications Medication Instructions Recorded Confirmed Last Taken amlodipine 5 mg PO Q OTHER DAY 12/31/20 12/31/20 12/30/20 aspirin 81 mg PO Q OTHER DAY 12/31/20 12/31/20 12/30/20 atorvastatin 20 mg PO Q OTHER DAY 12/31/20 12/31/20 12/30/20 calcium carbonate-vitamin D3 1 tab PO Q OTHER DAY 12/31/20 12/31/20 12/30/20 [Calcium 600 + D(3)] coenzyme Q10 [CoQ-10] 100 mg PO Q OTHER DAY 12/31/20 12/31/20 12/30/20 garlic 1,000 mg PO Q OTHER DAY 12/31/20 12/31/20 12/30/20 omega 7-ess-nrk-fish oil [Fish Oil] 1 cap PO Q OTHER DAY 12/31/20 12/31/20 12/30/20 pantoprazole 40 mg PO Q OTHER DAY 12/31/20 12/31/20 12/30/20 Active Medications Generic Name Dose Route Start Last Admin Trade Name Freq PRN Reason Stop Dose Admin Aspirin 81 mg 01/01/21 09:00 01/01/21 07:47 Aspirin 81 Mg Ectab PO 01/31/21 08:59 81 mg Q2D MICHELLE Administration Atorvastatin Calcium 20 mg 01/01/21 09:00 01/01/21 07:46 Atorvastatin 20 Mg Tab PO 01/31/21 08:59 20 mg Q2D MICHELLE Administration Sodium Chloride 1,000 mls @ 40 mls/hr 01/01/21 23:30 01/01/21 23:46 Nss 1000ml IV 01/31/21 23:29 40 mls/hr .Q24H MICHELLE Administration Oxycodone HCl 5 mg 01/01/21 03:09 01/01/21 12:54 Oxycodone Hcl Ir 5 Mg Tab (Immediate Release) PO 01/15/21 03:08 5 mg Q4H PRN Administration Pain Pantoprazole Sodium 40 mg 01/01/21 09:00 01/01/21 07:46 Pantoprazole 40 Mg Tab PO 01/31/21 08:59 40 mg Q2D MICHELLE Administration NPO Date Last Intake of Fluids: 01/02/21 Time Last Intake of Fluids: 00:00 Past Medical History Medical History Allergic reaction Coronary artery disease Hyperlipidemia Hypertension Leukemia Neutropenia Osteoarthritis of shoulder Past Surgical History Surgical History History of cardiac catheterization Social History Smoking Status: Never smoker Hx Alcohol Use: No Hx Substance Use: No substance use type: does not use Physical Exam Vital Signs Last Vital Signs Temp 98.2 F 01/02/21 07:05 Pulse 62 01/02/21 07:05 Resp 18 01/02/21 07:05 BP 120/61 01/02/21 07:05 Pulse Ox 94 01/02/21 07:05 Testing Laboratory Results 01/01/21 05:18 01/01/21 05:18 PT 10.3 Seconds (9.0-12.0) 12/31/20 20:20 INR 1.0 (0.9-1.1) 12/31/20 20:20 APTT 26.5 Seconds (21.0-31.0) 12/31/20 20:20 Hemoglobin A1c 5.1 % (4.5-5.6) 01/01/21 05:18 Urine Color Yellow 01/01/21 21:25 Urine Appearance Clear (Clear) 01/01/21 21:25 Urine pH 5.5 (4.5-7.5) 01/01/21 21:25 Ur Specific [place] 1.013 (1.000-1.030) 01/01/21 21:25 Urine Protein Negative (Negative) 01/01/21 21:25 Urine Glucose (UA) Negative (Negative) 01/01/21 21:25 Urine Ketones Trace (Negative) H 01/01/21 21:25 Urine Nitrite Negative (Negative) 01/01/21 21:25 Ur Leukocyte Esterase Negative (Negative) 01/01/21 21:25 Urine WBC (Auto) 1-5 /hpf (0-5) 01/01/21 21:25 Urine RBC (Auto) 0-4 /hpf (0-4) 01/01/21 21:25 U Hyaline Cast (Auto) 1-5 /lpf (0-5) 01/01/21 21:25 U Epithel Cells (Auto) 5-10 /lpf (0-5) H 01/01/21 21:25 Urine Bacteria (Auto) Negative (Negative) 01/01/21 21:25 Electrocardiogram Date: 12/31/20 Sinus bradycardia, rate 46 bpm Diffuse Nonspecific T wave abnormality Abnormal ECG When compared with ECG of 06-SEP-2016 11:46, T-wave inversion in Anteroseptal leads less pronounced Otherwise no significant change Confirmed by [place] ([id number]) on 01/01/2021 8:04:42 AM
[2021-01-02] MEDS: amLODIPine BESYLATE 5 MG TAB PO SCH (08:45)
[2021-01-02] MEDS ORDERED: ePHEDrine sulfate 50 MG/ML AMP IV PRN (08:53)
[2021-01-02] MEDS ORDERED: ATROPINE SULFATE 0.1 MG/ML 10ML SYR IV PRN (08:53)
[2021-01-02] MEDS ORDERED: ONDANSETRON INJ 2 MG/ML 2 ML VIAL IV PRN (08:53)
[2021-01-02] MEDS ORDERED: ROCURONIUM BROMIDE 10 MG/ML 5 ML VIAL IV ONE (09:26)
[2021-01-02] MEDS ORDERED: fentaNYL citrate 100 MCG/2 ML VIAL ONE ×2 (09:26→10:06)
[2021-01-02] MEDS ORDERED: LIDOCAINE 2% 2 ML VIAL/AMP(20MG/ML) INFIL ONE (09:26)
[2021-01-02] MEDS ORDERED: PROPOFOL IV EMULSION 10 MG/ML 20 ML VIAL IV ONE (09:26)
[2021-01-02] MEDS ORDERED: LIDOCAINE/EPINEPHRINE 1% 20 ML VIAL ONE (09:44)
[2021-01-02] MEDS ORDERED: ONDANSETRON INJ 2 MG/ML 2 ML VIAL ONE (09:59)
[2021-01-02] MEDS ORDERED: ePHEDrine sulfate 50 MG/ML SYR ONE (09:59)
[2021-01-02] MEDS ORDERED: GLYCOPYRROLATE 0.2 MG/ML VIAL ONE (10:27)
[2021-01-02] MEDS ORDERED: NEOSTIGMINE METHYLSULFATE 1 MG/ML 10ML VIAL ONE (10:27)
--- NOTE | 2021-01-02 10:29 | Post Operative Brief Note ---
PG Immediate Post Op with CF Date of Surgery January 02, 2021 Pre & Post Diagnosis Operation Date: 01/02/21 14:00 Pre-Op Diagnosis: abdominal pain Post-Op Diagnosis: abdominal pain I identified the patient and participated in the time-out.: Yes Procedure Operation Date: 01/02/21 14:00 Actual Procedures p Laparoscopic Cholecystectomy with cholangiogram(Not Applicable) - Valeriano Martinez MD, FACS Surgeon Valeriano Martinez MD, FACS Wheat Shipper ishaan palacios Estimated Blood Loss 5 Findings Consistent with Post-Op Diagnosis Specimens Specimen Description: a. Gallbladder
[2021-01-02] MEDS ORDERED: OPTIRAY 300 100mL INJ ONE (10:30)
--- NOTE | 2021-01-02 10:41 | Operative Report ---
PG Post Operative Report Pre & Post Diagnosis Operation Date: 01/02/21 14:00 Pre-Op Diagnosis: abdominal pain Post-Op Diagnosis: abdominal pain I identified the patient and participated in the time-out.: Yes Procedure Operation Date: 01/02/21 14:00 Actual Procedures p Laparoscopic Cholecystectomy with cholangiogram(Not Applicable) - Valeriano Martinez MD, FACS The patient was brought into the operating room supine position general endotracheal anesthesia systemic antibiotics on board the abdomen was prepped Betadine solution properly draped a timeout had patient was identified made a small incision supraumbilically approximately quarter inch long sufficient to accommodate a Veress needle followed by CO2 followed by 5 mm trocar point of i nterest on injury identified on direct visualization we placed a 5 mm epigastric 2 5 mm subcostal ports with preemptive local analgesic gallbladder was identified quite quite mobile we retracted superiorly towards right shoulder exposing down towards the neck of the gallbladder or we dissected out very easily very long cystic duct got around the cystic duct is a 5 mm clip we clipped the right at the takeoff of the gallbladder a small opening cystic duct was made #4 urethral catheter transversing abdominal wall and a 14 Angiocath was positioned cystic duct x-rays were taken which showed a very long cystic duct emptied into the common bile duct medially free flow into the duodenum no obstruction of the common bile duct this point the Cholangiocath was removed intra-abdominal cystic duct towards the common bile duct doubly clipped on it artery anterior posterior were identified anterior branch was large and was doubly clipped proximally and distally posterior branch clipped proximally once distally with electrocautery gallbladder removed the antegrade fashion using posterior peritoneum was much as possible no wheezing was appreciated taken out placed in an Endopouch taken out intact through the epigastric port subhepatic suprahepatic area was then checked for stasis appears satisfactory we placed the camera right upper quadrant port visualize the point of entry in the umbilical area with no adhesions to the point of entry was identified but superior to that towards the midline there was one fine adhesive band omentum stuck to the falciform ligament probably related this, trauma the past which was fibrous adhesions we divided that out. There was no remaining intact. Under direct visualization the visual 5 mm trochars were removed the last umbilical trocar wounds were closed with four 0-0 Monocryl subcuticular Steri-Strips applied procedure was tolerated well by the patient estimated blood loss 5 cc addendum Wanda Griffiths physician endodontic assistant was present throughout the case and helped the retraction exposure and wound closure addendum talked to the Phylicia after surgery and discussed the operative procedure and find Surgeon Valeriano Martinez MD, FACS Dish Machine Operator ishaan palacios Estimated Blood Loss 5 Findings Consistent with Post-Op Diagnosis Specimens gallbladder and contents Description of Procedure merda I attest to the content of the Intraoperative Record and any orders documented therein. Any exceptions are noted below.
--- NOTE | 2021-01-02 10:41 | Fluoroscopy Report ---
INTRAOPERATIVE CHOLANGIOGRAM HISTORY: Post cholecystectomy. FLUOROSCOPY TIME: 2 seconds. 2 fluoroscopic spot images of the right upper quadrant.. FINDINGS: Fluoroscopy was provided for an intraoperative cholangiogram status post cholecystectomy. C ontrast was injected through the cystic duct remnant. The common bile duct is normal in course and ca liber. There are no filling defects seen within the common bile duct to suggest a retained stone. Co ntrast extends into the small bowel. There is no intrahepatic bile duct dilatation. IMPRESSION: Fluoroscopy provided for an intraoperative cholangiogram status post cholecystectomy. No filling defects within the common bile duct. ACT 112: Negative or not required by law. Electronically signed by: Javier Mendiola M.D. 01/02/2021 10:40 AM
[2021-01-02] MEDS: fentaNYL citrate 100 MCG/2 ML VIAL IV PRN ×3 (10:56→11:06)
--- NOTE | 2021-01-02 11:27 | Anesthesiology Progress Note ---
Date of Service January 02, 2021 Anesthesia Post Procedure Vital Signs Vital Signs: Temp Pulse Pulse Pulse Resp BP Pulse Ox 01/02/21 11:15 54 L 16 141/61 H 100 01/02/21 11:05 51 L 16 139/64 100 01/02/21 10:55 70 16 132/80 96 01/02/21 10:49 97.3 F L 75 16 177/87 H 100 01/02/21 07:26 52 L 01/02/21 07:05 98.2 F 62 18 120/61 94 01/02/21 04:01 98.1 F 62 18 158/87 H 94 01/01/21 23:11 45 L 01/01/21 22:54 97.9 F 63 18 125/75 96 01/01/21 19:57 98.2 F 64 18 169/77 H 96 01/01/21 14:55 97.3 F L 48 L 18 150/71 H 94 Pain Intensity Abdomen: Pain Intensity: 8 Transfer of Care Handoff Completed per policy Notes Mental Status: alert / awake / arousable and participated in evaluation Patient Amnestic to Procedure: Yes Nausea / Vomiting: adequately controlled Pain: adequately controlled Airway Patency, RR, SpO2: stable & adequate BP & HR: stable & adequate Hydration State: stable & adequate Anesthetic Complications: no major complications apparent and Pt Satisfied with anesthetic care
[2021-01-02] MEDS: LACTATED RINGER'S 1,000 ML IV SCH ×2 (11:59→20:31)
--- NOTE | 2021-01-02 22:15 | Hospitalist Progress Note ---
Date of Service January 02, 2021 Assessment & Plan (1) Abdominal pain: Possible biliary source of pain. He is s/p lap stepan this morning with an improved clinical picture overall. No evidence of choledocholithiasis on intraoperative chlangiogram. (2) Post-operative state: s/p Lap Stepan by Dr. Martinez POD#0 (3) Asymptomatic hypertensive urgency: Likely related to abdominal pain. Cont aggressive pain control measures and amlodipine per home regimen. Improved. 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 Diagnosed and treated in 2013 with final hematology visit in 2016. Periodic outpatient hematology follow-up recommended. Thrombocytopenia noted on current bloodwork this admission. (5) Coronary artery disease: chronic, stable, cont medical management with ASA, atorvastatin 20mg daily. Follows with cardiology as outpatient. Recently underwent a NM stress test with results pending. (6) DVT prophylaxis: SCDs DNR Dispo-pending recovery and surgery recommendations. Janice Nguyen DO [facility] Hospitalist Admission and Anticipated Discharge Date Admission Date: January 01, 2021 Subjective 80 yo M admitted with abdominal pain. Taken for lap stepan this morning. DOing well post-op. Denies significant pain and is asking to go home today. Moving around well. Tolerating PO, denies nausea. Review of Systems Review of Systems: All systems reviewed & are unremarkable except as noted in Subjective Physical Exam Physical Exam: CONSTITUTIONAL: WNWD, vitals as above, generally well- appearing EYES: normal conjunctivae, no scleral icterus ENT: external ear and nose normal, MMM RESPIRATORY: clear to auscultation bilaterally, no crackles, rales or wheezes, normal respiratory effort CARDIOVASCULAR: regular rate and rhythm, S1 and 2 heard without murmurs, gallops or rubs, no JVD, no peripheral edema GASTROINTESTINAL: soft, nondistended, incision sites are closed clean, not erythematous MUSCULOSKELETAL: strength 5/5 throughout, head is normocephalic and atraumatic SKIN: warm and dry NEUROLOGIC: CN 2-12 grossly intact, no sensory deficit, normal cognition, normal speech, no tremor, no gross focal deficits. PSYCHIATRIC: alert cooperative and oriented to person, place and time. Results & Data Results & Data ([facility]) Vital Signs (Past 12 Hours) Vital Signs Temp Pulse Pulse Resp BP Pulse Ox 01/02/21 19:05 36.7 C 68 18 146/69 H 92 01/02/21 16:00 36.7 C 57 L 18 143/62 H 97 01/02/21 12:14 36.3 C L 61 18 124/66 100 01/02/21 11:25 58 L 16 136/69 100 01/02/21 11:15 54 L 16 141/61 H 100 01/02/21 11:05 51 L 16 139/64 100 01/02/21 10:55 70 16 132/80 96 01/02/21 10:49 36.3 C L 75 16 177/87 H 100 Medications Administered Current Inpatient Medications Acetaminophen (Acetaminophen 325 Mg Tab) 650 mg PO Q4H PRN PRN Reason: Pain or Fever Stop: 01/31/21 02:26 Amlodipine Besylate (Amlodipine Besylate 5 Mg Tab) 5 mg PO DAILY [facility] Stop: 02/01/21 08:59 Last Admin: 01/02/21 08:45 Dose: Not Given Documented by: Aspirin (Aspirin 81 Mg Ectab) 81 mg PO Q2D MICHELLE Stop: 01/31/21 08:59 Last Admin: 01/01/21 07:47 Dose: 81 mg Documented by: Atorvastatin Calcium (Atorvastatin 20 Mg Tab) 20 mg PO Q2D MICHELLE Stop: 01/31/21 08:59 Last Admin: 01/01/21 07:46 Dose: 20 mg Documented by: Promethazine HCl 12.5 mg/ (Sodium Chloride) 50.5 mls @ 202 mls/hr IV Q6H PRN PRN Reason: Nausea And Vomiting Stop: 01/31/21 02:26 Lactated Ringer's (Lr) 1,000 mls @ 80 mls/hr IV .[id number] MICHELLE Stop: 02/01/21 11:25 Last Admin: 01/02/21 20:31 Dose: 80 mls/hr Documented by: Morphine Sulfate (Morphine Sulfate 2 Mg/Ml Carp) 2 mg IV Q3H PRN PRN Reason: Pain Stop: 01/15/21 02:26 Oxycodone HCl (Oxycodone Hcl Ir 5 Mg Tab (Immediate Release)) 5 mg PO Q4H PRN PRN Reason: Pain Stop: 01/15/21 03:08 Last Admin: 01/01/21 12:54 Dose: 5 mg Documented by: Pantoprazole Sodium (Pantoprazole 40 Mg Tab) 40 mg PO Q2D MICHELLE Stop: 01/31/21 08:59 Last Admin: 01/01/21 07:46 Dose: 40 mg Documented by:
[2021-01-03] MEDS: oxyCODONE HCL IR 5 MG TAB (IMMEDIATE RELEASE) PO PRN ×4 (03:10→21:37)
[2021-01-03 06:50] LABS: Hematocrit (blood only) 39.7 % (42-52); Hemoglobin 13.5 g/dL (14.0-18.0); Mean Corpuscular Hemoglobin 33.5 pg (25-34); Mean Corpuscular Volume 98.5 fL (80-100); RDW Standard Deviation 50.3 fL (36.4-46.3); Red Blood Count 4.03 M/uL (4.7-6.1); White Blood Count 6.01 K/uL (4.8-10.8)
[2021-01-03 06:52] LABS: Mean Platelet Volume 10.5 fL (7.4-10.4); Platelet Count 85 K/uL (130-400)
[2021-01-03 07:14] LABS: Basophils # (auto) 0.01 K/uL (0-0.2); Basophils % (auto) 0.2 %; Eosinophils # (auto) 0.14 K/uL (0-0.5); Eosinophils % (auto) 2.3 %; Lymphocytes % (auto) 13.3 %; Monocytes # (auto) 0.66 K/uL (0.11-0.59); Neutrophils % (auto) 73.2 %
[2021-01-03 07:23] LABS: Albumin Level 3.6 gm/dl (3.4-5.0); Bilirubin Direct 0.3 mg/dl (0-0.2); Calcium 8.6 mg/dl (8.5-10.1); Creatinine Clr Calc Pharmacy 63.1 ml/min; Est GFR (African American) 81.9 ml/min; Est GFR (Non-African American) 70.6 ml/min; Potassium 4.4 mmol/L (3.5-5.1)
[2021-01-03 07:26] LABS: Bilirubin,Total 1.3 mg/dl (0.2-1); Total Protein 6.7 gm/dl (6.4-8.2)
[2021-01-03] MEDS: amLODIPine BESYLATE 5 MG TAB PO SCH (08:19)
[2021-01-03] MEDS: ASPIRIN 81 MG ECTAB PO SCH (08:20)
[2021-01-03] MEDS: PANTOprazole 40 MG TAB PO SCH (08:20)
[2021-01-03] MEDS: ATORVASTATIN 20 MG TAB PO SCH (08:21)
--- NOTE | 2021-01-03 08:52 | Surgery Progress Note ---
Date of Service January 03, 2021 Assessment & Plan (1) Abdominal pain: POD 1 lap stepan post op urinary retention keep here today, increase diet seen with Dr. Martinez Admission and Anticipated Discharge Date Admission Date: January 01, 2021 Supervising Physician Co-Signing Physician Notes No abdominal findings Discussed with the patient Plan discharge tomorrow make sure the patient oral intake is sufficient and also that he is voiding without issues Subjective not much appetite, straight cath x2 Physical Exam Gastrointestinal (Abdomen): Inspection/Auscultation: + abdominal surgical inc ision (dry) Percussion/Palpation: abdomen soft Results & Data ([facility]) Vital Signs (Past 12 Hours) Vital Signs Temp Pulse Pulse Resp BP Pulse Ox 01/03/21 07:10 36.4 C L 69 18 153/82 H 95 01/03/21 03:06 36.9 C 66 18 171/78 H 96 01/03/21 00:31 68 01/03/21 00:02 36.7 C 69 18 155/71 H 92 PG Care Time/CCT Total # of Minutes Spent Total Time Spent with Patient: Total time spent is greater than 50% in coordination of care (as documented) at patient's floor/unit and/or counseling patient: Coding Level of Care Code 69679 Subseq Hosp Care Lvl 3 Diagnoses Abdominal pain R10.9
[2021-01-03] MEDS ORDERED: GLYCERIN ADULT 12 SUPP/BOX SUPP PR PRN (09:00)
[2021-01-03] MEDS: POLYETHYLENE (MIRALAX) 17 GM PACK PO PRN (09:26)
[2021-01-03] MEDS: DOCUSATE SODIUM/SENNA 50/8.6MG TAB PO SCH (09:26)
--- NOTE | 2021-01-03 12:06 | Hospitalist Progress Note ---
Date of Service January 03, 2021 Assessment & Plan (1) Abdominal pain: Possible biliary source of pain. He is s/p lap stepan POD #1 with an improved clinical picture overall. More soreness today in abdomen along with post-prandial nausea and some AUR. No evidence of choledocholithiasis on intra operative chlangiogram. Heparin added for DVT proph. Mobilize as tolerated. Antiemetics and pain medication as needed. (2) Postprocedural urinary retention: Place Conn with ongoing symptoms despite straight cath x 2 overnight. (3) Post-operative state: s/p Lap Stepan by Dr. Martinez POD#1 (4) Asymptomatic hypertensive urgency: Likely related to abdominal pain. Cont aggressive pain control measures and amlodipine per home regimen. Slightly elevated at 164 systolic, however, patient not feeling well. Place conn and continue to monitor. 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 Diagnosed and treated in 2013 with final hematology visit in 2016. Periodic outpatient hematology follow-up recommended. Thrombocytopenia noted on current bloodwork this admission. (6) Coronary artery disease: chronic, stable, cont medical management with ASA, atorvastatin 20mg daily. Follows with cardiology as outpatient. Recently underwent a NM stress test with results pending. (7) DVT prophylaxis: SCDs DNR Dispo-pending recovery and surgery recommendations. Janice Nguyen DO [facility] Hospitalist Admission and Anticipated Discharge Date Admission Date: January 01, 2021 Subjective 80 yo M admitted with abdominal pain. POD #1 s/p lap stepan. Abdominal pain resolved and doing well post-op, however, no with some nausea and intolerance to food as well as acute urinary retention. Required straight cath twice overnight and still feels suprapubic pressure and discomfort. Review of Systems Review of Systems: All systems reviewed & are unremarkable except as noted in Subjective Physical Exam Physical Exam: CONSTITUTIONAL: WNWD, vitals as above, generally well- appearing EYES: normal conjunctivae, no scleral icterus ENT: external ear and nose normal, MMM RESPIRATORY: clear to auscultation bilaterally, no crackles, rales or wheezes, normal respiratory effort CARDIOVASCULAR: regular rate and rhythm, S1 and 2 heard without murmurs, gallops or rubs, no JVD, no peripheral edema GASTROINTESTINAL: soft, nondistended, , NT, incision sites are closed clean, not erythematous MUSCULOSKELETAL: strength 5/5 throughout, head is normocephalic and atraumatic SKIN: warm and dry NEUROLOGIC: CN 2-12 grossly intact, no sensory deficit, normal cognition, normal speech, no tremor, no gross focal deficits. PSYCHIATRIC: alert cooperative and oriented to person, place and time. Results & Data Results & Data ([facility]) Vital Signs (Past 12 Hours) Vital Signs Temp Pulse Pulse Resp BP Pulse Ox 01/03/21 11:26 36.7 C 56 L 18 164/84 H 93 01/03/21 07:10 36.4 C L 69 18 153/82 H 95 01/03/21 03:06 36.9 C 66 18 171/78 H 96 01/03/21 00:31 68 01/03/21 00:02 36.7 C 69 18 155/71 H 92 Laboratory Results Short CBC 01/03/21 Range/Units 06:39 WBC 6.01 (4.8-10.8) K/uL Hgb 13.5 L (14.0-18.0) g/dL Hct 39.7 L (42-52) % Plt Count 85 L (130-400) K/uL BMP 01/03/21 06:39 Sodium 139 Potassium 4.4 Chloride 107 Carbon Dioxide 28 BUN 14 Creatinine 0.99 Glucose 107 H Calcium 8.6 Liver Function 01/03/21 Range/Units 06:39 Total Bilirubin 1.3 H (0.2-1) mg/dl Direct Bilirubin 0.3 H (0-0.2) mg/dl AST 17 (15-37) U/L ALT 22 (12-78) U/L Alkaline Phosphatase 81 (45-117) U/L Albumin 3.6 (3.4-5.0) gm/dl Medications Administered Current Inpatient Medications Acetaminophen (Acetaminophen 325 Mg Tab) 650 mg PO Q4H PRN PRN Reason: Pain or Fever Stop: 01/31/21 02:26 Amlodipine Besylate (Amlodipine Besylate 5 Mg Tab) 5 mg PO DAILY MICHELLE Stop: 02/01/21 08:59 Last Admin: 01/03/21 08:19 Dose: 5 mg Documented by: Aspirin (Aspirin 81 Mg Ectab) 81 mg PO Q2D MICHELLE Stop: 01/31/21 08:59 Last Admin: 01/03/21 08:20 Dose: 81 mg Documented by: Atorvastatin Calcium (Atorvastatin 20 Mg Tab) 20 mg PO Q2D MICHELLE Stop: 01/31/21 08:59 Last Admin: 01/03/21 08:21 Dose: 20 mg Documented by: Glycerin (Glycerin Adult 12 Supp/Box Supp) 1 supp AL DAILY PRN PRN Reason: Constipation Stop: 02/02/21 08:59 Heparin Sodium (Porcine) (Heparin Sod 5,000 Unit/0.5 Ml Vial) 5,000 units SQ Q8 MICHELLE Stop: 02/02/21 13:59 Promethazine HCl 12.5 mg/ (Sodium Chloride) 50.5 mls @ 202 mls/hr IV Q6H PRN PRN Reason: Nausea And Vomiting Stop: 01/31/21 02:26 Morphine Sulfate (Morphine Sulfate 2 Mg/Ml Carp) 2 mg IV Q3H PRN PRN Reason: Pain Stop: 01/15/21 02:26 Oxycodone HCl (Oxycodone Hcl Ir 5 Mg Tab (Immediate Release)) 5 mg PO Q4H PRN PRN Reason: Pain Stop: 01/15/21 03:08 Last Admin: 01/03/21 08:18 Dose: 5 mg Documented by: Pantoprazole Sodium (Pantoprazole 40 Mg Tab) 40 mg PO Q2D [facility] Stop: 01/31/21 08:59 Last Admin: 01/03/21 08:20 Dose: 40 mg Documented by: Polyethylene Glycol (Polyethylene (Miralax) 17 Gm Pack) 17 gm PO DAILY PRN PRN Reason: Constipation Stop: 02/02/21 08:59 Last Admin: 01/03/21 09:26 Dose: 17 gm Documented by: Senna/Docusate Sodium (Docusate Sodium/Senna 50/8.6mg Tab) 1 tab PO QAM [facility] Stop: 02/02/21 08:59 Last Admin: 01/03/21 09:26 Dose: 1 tab Documented by:
[2021-01-03] MEDS: HEPARIN SOD 5,000 UNIT/0.5 ML VIAL SQ SCH ×2 (14:26→21:33)
[2021-01-03] MEDS ORDERED: CALCIUM CARBONATE 500 MG CHEWABLE TAB PO PRN (21:13)
[2021-01-04] MEDS: oxyCODONE HCL IR 5 MG TAB (IMMEDIATE RELEASE) PO PRN ×5 (03:52→23:54)
[2021-01-04] MEDS: HEPARIN SOD 5,000 UNIT/0.5 ML VIAL SQ SCH ×3 (04:50→22:22)
[2021-01-04 07:47] LABS: Hematocrit (blood only) 40.6 % (42-52); Hemoglobin 13.9 g/dL (14.0-18.0); Mean Corpuscular Hemoglobin 33.1 pg (25-34); Mean Corpuscular Hgb Conc 34.2 g/dL (32-36); Mean Corpuscular Volume 96.7 fL (80-100); RDW Coefficient of Variation 14.1 % (11.5-14.5); RDW Standard Deviation 50.2 fL (36.4-46.3); White Blood Count 5.75 K/uL (4.8-10.8)
[2021-01-04 08:03] LABS: Mean Platelet Volume 10.6 fL (7.4-10.4); Platelet Count 96 K/uL (130-400)
[2021-01-04] MEDS: amLODIPine BESYLATE 5 MG TAB PO SCH (08:14)
[2021-01-04] MEDS: DOCUSATE SODIUM/SENNA 50/8.6MG TAB PO SCH (08:14)
[2021-01-04] MEDS: POLYETHYLENE (MIRALAX) 17 GM PACK PO PRN (08:19)
--- NOTE | 2021-01-04 08:37 | Surgery Progress Note ---
Date of Service January 04, 2021 Assessment & Plan (1) Abdominal pain: POD#2 lap stepan WBC 5.7, afebrile Pt with some abdominal pain/back discomfort, getting mild relief with pain medication Low appetite, but is able to drink/eat without nausea/vomiting Plunkett was replaced for urinary retention, will undergo a void trial today If he is able to void patient is okay for discharge to home from our standpoint, follow up with Dr. Martinez in clinic within 1 week Pt seen with Dr Martinez Admission and Anticipated Discharge Date Admission Date: January 01, 2021 Subjective Patient with some complaints of abdominal and back discomfort. He is getting some relief with the pain medications, but it wears off. He has a low appetite, but is tolerating liquids/food without nausea/vomiting. Plunkett catheter in place for urinary retention. Physical Exam Physical Exam: awake/alert, sitting up in bed Constitutional: no acute distress Respiratory: normal respiratory effort Gastrointestinal (Abdomen): Inspection/Auscultation: + abdominal surgical incision (c/d/i with steri-strips in place); abdomen not distended Percussion/Palpation: + abdomen tender (some ttp venu-incisionally) and abdomen soft Results & Data ([facility]) Vital Signs (Past 12 Hours) Vital Signs Temp Pulse Pulse Pulse Resp BP Pulse Ox 01/04/21 08:25 36.8 C 60 17 139/69 94 01/04/21 04:00 36.7 C 63 20 166/71 H 96 01/04/21 00:12 63 01/03/21 22:53 36.5 C 82 20 144/78 H 92 PG Care Time/CCT Total # of Minutes Spent Total Time Spent with Patient: Total time spent is greater than 50% in coordination of care (as documented) at patient's floor/unit and/or counseling patient: Coding Level of Care Code None Diagnoses Abdominal pain R10.9
[2021-01-04] MEDS ORDERED: TAMSULOSIN HCL 0.4 MG CAP PO ONE (15:10)
[2021-01-04 19:03] LABS: Appearance Urine Clear (Clear); Bacteria Urine Automated Negative (Negative); Bilirubin Urine Negative (Negative); Blood Urine 3+ (Negative); Cast Urine Automated 0 /lpf (0-5); Color Urine Yellow; Epithelial Cell Urine Auto 0-5 /lpf (0-5); Glucose Urine UA Negative (Negative); Ketones Urine Trace (Negative); Leukocyte Esterase Urine Negative (Negative); Nitrite Urine Negative (Negative); Protein Urine Trace (Negative); Specific Gravity Urine 1.016 (1.000-1.030); Urobilinogen Urine Negative (Negative); WBC Urine Automated 0 /hpf (0-5); pH Urine 5.5 (4.5-7.5)
[2021-01-05] MEDS: oxyCODONE HCL IR 5 MG TAB (IMMEDIATE RELEASE) PO PRN (04:54)
[2021-01-05] MEDS: HEPARIN SOD 5,000 UNIT/0.5 ML VIAL SQ SCH (06:49)
[2021-01-05] MEDS: ATORVASTATIN 20 MG TAB PO SCH (09:37)
[2021-01-05] MEDS: DOCUSATE SODIUM/SENNA 50/8.6MG TAB PO SCH (09:37)
[2021-01-05] MEDS: ASPIRIN 81 MG ECTAB PO SCH (09:37)
[2021-01-05] MEDS: amLODIPine BESYLATE 5 MG TAB PO SCH (09:37)
[2021-01-05] MEDS: PANTOprazole 40 MG TAB PO SCH (09:37)
[2021-01-05 10:33] LABS: Basophils # (auto) 0.01 K/uL (0-0.2); Basophils % (auto) 0.2 %; Eosinophils # (auto) 0.18 K/uL (0-0.5); Eosinophils % (auto) 4.1 %; Hematocrit (blood only) 36.5 % (42-52); Hemoglobin 12.4 g/dL (14.0-18.0); Lymphocytes # (auto) 0.86 K/uL (1.2-3.4); Lymphocytes % (auto) 19.4 %; Mean Corpuscular Volume 97.1 fL (80-100); Mean Platelet Volume 10.7 fL (7.4-10.4); Monocytes # (auto) 0.55 K/uL (0.11-0.59); Monocytes % (auto) 12.4 %; Neutrophils # (auto) 2.84 K/uL (1.4-6.5); Neutrophils % (auto) 63.9 %; Platelet Count 100 K/uL (130-400); RDW Coefficient of Variation 13.7 % (11.5-14.5); RDW Standard Deviation 48.5 fL (36.4-46.3); Red Blood Count 3.76 M/uL (4.7-6.1); White Blood Count 4.44 K/uL (4.8-10.8)
[2021-01-05 10:57] LABS: Albumin Level 3.3 gm/dl (3.4-5.0); BUN Creatinine Ratio 16.6 (10-20); Calcium 8.2 mg/dl (8.5-10.1); Creatinine Clr Calc Pharmacy 62.5 ml/min; Est GFR (African American) 80.9 ml/min; Est GFR (Non-African American) 69.8 ml/min; Potassium 3.9 mmol/L (3.5-5.1)
[2021-01-05 10:59] LABS: Albumin Globulin Ratio 1.2 (0.9-2); Globulin 2.8 gm/dl (2.5-4.0); Total Protein 6.1 gm/dl (6.4-8.2)
--- NOTE | 2021-01-05 11:54 | Hospitalist Progress Note ---
Date of Service January 05, 2021 Assessment & Plan (1) Abdominal pain: s/p lap stepan POD #2 Patient reports his pain is better. Have been tolerating fine. Hemodynamically doing okay. Have been ambulating. Zofran as needed for nausea. (2) Postprocedural urinary retention: Plunkett was removed. However patient was unable to void. He was offered to discharge home tonight with a Plunkett catheter however he stated it is late and wait for tonight and be discharged tomorrow. Plan to obtain UA as patient reports dysuria. Patient is unable to void by the morning, will place Plunkett catheter and discharge with urology follow-up. Flomax was ordered. (3) Post-operative state: s/p Lap Stepan by Dr. 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 Diagnosed and treated in 2013 with final hematology visit in 2016. Periodic outpatient hematology follow-up recommended. Thrombocytopenia noted on current bloodwork this admission. (6) Coronary artery disease: chronic, stable, cont medical management with ASA, atorvastatin 20mg daily. Follows with cardiology as outpatient. Recently underwent a NM stress test with results pending. (7) DVT prophylaxis: SCDs DNR Late entry Patient was seen and examined on 01/04/2021. Admission and Anticipated Discharge Date Admission Date: January 01, 2021 Subjective Doing okay this morning. However continues to have abdominal pain. Does admit that it is better than before. Denies any nausea or vomiting been tolerating diet. Plunkett catheter is in place. Rest of the review of systems negative. Review of Systems Review of Systems: All systems reviewed & are unremarkable except as noted in HPI & below Physical Exam Physical Exam: General: A&Ox3 HENT: NCAT, MMM, EOMI Eyes: PERRLA Neck: Supple, normal range of motion CVS: normal rate and rhythm Resp: b/l good breath sounds Abdomen: Soft, incisional tenderness appreciated Extremities: No c/c/e Neuro: face symmetric, no focal deficit Skin: warm and dry, no rashes/lesions/errythema MSK: normal ROM, no joint swelling/erythema Results & Data Results & Data [facility]) Vital Signs (Past 12 Hours) Vital Signs Temp Pulse Pulse Resp BP Pulse Ox 01/05/21 10:35 60 01/05/21 07:31 36.6 C 64 18 117/60 94 01/05/21 04:50 70
--- NOTE | 2021-01-14 08:00 | Discharge Summary ---
Date of Service January 05, 2021 Admission HPI Per Admitting Provider History obtained from patient and records. 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 Last confinement 2016 under Orthopedics service for elective left shoulder surgery. Yesterday morning a few hours after breakfast, patient noted achy right upper quadrant/epigastric pain with nausea. No emesis. No change in bowel habits. No fever, no chills, no chest pain no S OB. No headaches. No prior episodes in the past. Patient brought to the ER for evaluation by . 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, lives with Admission Exam Per Admitting Provider ENERAL: Slightly uncomfortable, pleasant, no respiratory distress SKIN: Normal color, warm HEENT: [place] palpebral conjunctivae, no ptosis, dry buccal mucosa NECK : Supple, no tenderness CHEST : CTA, no tenderness HEART : Bradycardic, no obvious murmurs ABDOMEN: Some distention, epigastric tenderness EXTREMITIES : No LE swelling/tenderness, no other conspicuous deformities noted NEUROLOGIC : Coherent, no facial asymmetry, mild hearing impairment, no other gross focality Principal Diagnosis Abdominal pain: s/p lap gina Discharge Exam General: A&Ox3 HENT: NCAT, MMM, EOMI Eyes: PERRLA Neck: Supple, normal range of motion CVS: normal rate and rhythm Resp: b/l good breath sounds Abdomen: Soft, incisional tenderness appreciated Extremities: No c/c/e Neuro: face symmetric, no focal deficit Skin: warm and dry, no rashes/lesions/errythema MSK: normal ROM, no joint swelling/erythema Discharge Data Allergies Allergy/AdvReac Type Severity Reaction Status Date / Time tramadol AdvReac Intermediate NAUSEA Verified 01/11/21 13:33 Consultations 01/01/21 00:09 ED Decision to Admit Stat 01/01/21 02:27 Consult General Surgery Routine Procedures Performed Operation Date: 01/02/21 14:00 Actual Procedures p Laparoscopic Cholecystectomy with cholangiogram(Not Applicable) - Valeriano Martinez MD, FACS Ordered Studies 12/31/20 20:17 CT angio chest dissec wo/w con Stat 12/31/20 20:27 CT angio abdomen pelvis w con Stat 12/31/20 22:10 US gallbladder Urgent 01/01/21 14:37 MR MRCP Stat 01/02/21 09:25 [place] cholangiogram OR Routine Hospital Course (1) Abdominal pain: s/p lap gina POD #2 On the day discharge patient was doing okay. Pain was well controlled. Patient was tolerating diet. Hemodynamically he was doing fine. (2) Postprocedural urinary retention: Plunkett catheter was removed for voiding trial but he failed. Plunkett catheter had to be placed again and patient was discharged with it. Patient will need to follow-up with urology as an outpatient. (3) Post-operative state: s/p Lap Gina by Dr. 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 Diagnosed and treated in 2013 with final hematology visit in 2016. Periodic outpatient hematology follow-up recommended. Thrombocytopenia noted on current bloodwork this admission. (6) Coronary artery disease: chronic, stable, cont medical management with ASA, atorvastatin 20mg daily. Follows with cardiology as outpatient. Recently underwent a NM stress test with results pending. Total Time Total Time Spent Total Time Spent (In Minutes): 35 Discharge Plan Discharge Items Patient Disposition: Home - Self-Care Reason For Visit: HTN URG, ABD PAIN Discharge Diagnosis: laparoscopic cholecystectomy Activity: Per Instructions section Lifting: No more than 10 pounds Bathing Comment: may shower; no soaking in tubs/pools Exercise/Sports: Wait until after follow-up appointment Driving/Machine Use: no driving while taking narcotics for pain; wait at least 3 days Non-emergency contact: Primary Care Provider Call non-emergency contact if: you have any medication questions, your symptoms worsen, your pain is not controlled, your pain is worsening, your pain is unusual for you, you have a fever, your temperature is above 101.5, your wound has increased redness, your wound has increased drainage and your wound pain has increased Follow-up/Referrals: Valeriano Martinez MD, FACS [Surgeon] - 01/11/21 9:30 am (General Surgery-- [place] [id number] ) Frederick Ortiz MD [Primary Care Provider] - (Date & Time 01/08/2021 2:00 PM Provider Frederick Ortiz III, MD Department [facility] ) Alphonse Morris PA-C [Outside Practitioners] - (Date & Time 01/13/2021 11:00 AM Provider Alphonse Morris PA-C Department [facility] [address], [address] [place] [address] ) Diet: Regular Addtl Attending Provider Instructions: You have small white bandages over your incisions called steri-strips. You may shower with these on. Keep them in place, they will tend to fall off on their own within 7-10 days. You will need to follow-up with urology as an outpatient. Pending Studies at Discharge: Yes Studies:: surgical pathology Stand-Alone Forms: [facility], Smoking Cessation Medications and DC Order Prescriptions: Continued atorvastatin 20 mg tablet 20 mg PO Q OTHER DAY RF: 0 amlodipine 5 mg tablet 5 mg PO Q OTHER DAY RF: 0 aspirin 81 mg Tablet,Delayed Release (Dr/Ec) 81 mg PO Q OTHER DAY RF: 0 garlic 1,000 mg Capsule 1,000 mg PO Q OTHER DAY RF: 0 pantoprazole 40 mg tablet,delayed release (DR/EC) 40 mg PO Q OTHER DAY RF: 0 coenzyme Q10 [CoQ-10] 100 mg Capsule 100 mg PO Q OTHER DAY RF: 0 calcium carbonate-vitamin D3 [Calcium 600 + D(3)] 600 mg(1,500mg) -400 unit Tablet 1 tab PO Q OTHER DAY RF: 0 omega 5-cyp-mmq-fish oil [Fish Oil] 1,000 mg (120 mg-180 mg) Capsule 1 cap PO Q OTHER DAY RF: 0 Discharge Orders: Discharge Order (Routine); Ordered 01/05/21 Ordered By: Tremayne Sinclair Admission Data Admit Date/Time: 01/01/21 18:36 Attending Provider: Tremayne Sinclair Admit Provider: Trever Wilder Primary Care Provider: Frederick Ortiz Other Providers: Trever Wilder ; Jason Orr ; Rolan Orozco ; Valeriano Martinez ; Simba Hill Jr ; Taran Lou ; David Hurley ; Wanda Courtney ; Conrado Amaya ; Elgin Martin
== END 2021-01-05 13:16 | disposition home or self-care (01) | DRG 358 ==
LOC: 2N 20:00 → ED 20:00 → SUATTDRO 01-01 00:57 → 2N 01-01 02:01 → SUATTDRO 01-01 18:36 → 2N 01-05 04:44

== ENCOUNTER 2022-07-19 21:49 | Inpatient (IN) ==
[2022-07-19] MEDS ORDERED: ACETAMINOPHEN 1,000 MG/100 ML VIAL IV STA (22:34)
--- NOTE | 2022-07-19 22:34 | XRay Report ---
SINGLE VIEW CHEST CLINICAL HISTORY: Generalized weakness. FINDINGS: An AP, portable, upright chest radiograph is compared to study dated 01/07/2021 and correlat ed with chest CT dated 12/31/2020. The heart is enlarged noting atherosclerotic calcification of the th oracic aorta. The pulmonary vasculature is none congestive. Chronic interstitial thickening similar t o previous. The lungs and pleural spaces are clear noting bibasilar scarring/atelectasis. No pneumoth orax is seen. The skeletal structures are osteopenic. The bony thorax is grossly intact. A left shoul matthew arthroplasty is in place. IMPRESSION: Cardiomegaly with no active disease in the chest. ACT 112: Negative or not required by law. Electronically signed by: Theodore Palacios M.D. 07/19/2022 10:32 PM
[2022-07-19 22:38] LABS: Hematocrit (blood only) 38.3 % (40.1-51.0); Hemoglobin 13.3 g/dl (14.0-18.0); Mean Corpuscular Hemoglobin 32.3 pg (25.0-34.0); Mean Corpuscular Hgb Conc 34.7 g/dL (32.0-36.0); Mean Platelet Volume 10.2 fL (9.4-12.4); Platelet Count 85 K/uL (130-400); RDW Coefficient of Variation 13.8 % (11.5-14.5); RDW Standard Deviation 46.8 fL (36.4-46.3); Red Blood Count 4.12 M/uL (4.63-6.08); White Blood Count 10.74 K/ul (4.8-10.8)
[2022-07-19] MEDS ORDERED: SODIUM CHLORIDE 0.9% 1000ML 1,000 ML IV SCH (22:45)
[2022-07-19 22:52] LABS: Basophils # (auto) 0.03 K/uL (0-0.2); Basophils % (auto) 0.3 %; Eosinophils # (auto) 0.08 K/uL (0-0.50); Eosinophils % (auto) 0.7 %; Immature Granulocytes # (auto) 0.02 K/uL (0.00-0.02); Immature Granulocytes % (auto) 0.2 %; Lymphocytes # (auto) 0.64 K/uL (1.2-3.4); Monocytes # (auto) 0.93 K/uL (0.24-0.82); Monocytes % (auto) 8.7 %; Neutrophils # (auto) 9.04 K/uL (1.4-6.5); Neutrophils % (auto) 84.1 %
[2022-07-19 23:04] LABS: Albumin Globulin Ratio 1.7 (0.9-2); Albumin Level 4.5 gm/dl (3.4-5.0); BUN Creatinine Ratio 18.9 (10-20); Bilirubin,Total 1.6 mg/dl (0.2-1.0); Calcium 8.9 mg/dl (8.5-10.1); Creatinine Clr Calc Pharmacy 56.2 ml/min; Est GFR (African American) 74.9 ml/min; Est GFR (Non-African American) 64.6 ml/min; Globulin 2.7 gm/dl (2.5-4.0); Potassium 3.8 mmol/L (3.5-5.1); Total Protein 7.2 gm/dl (6.0-8.3)
[2022-07-19 23:11] LABS: Troponin I High Sensitivity 4.5 pg/ml (0-20)
[2022-07-19 23:19] LABS: Influenza A virus by PCR Negative (Neg); Influenza B virus by PCR Negative (Neg); SARS CoV2 RNA(COVID-19) Ceph NEGATIVE (Negative)
[2022-07-19 23:28] LABS: RSV by PCR Positive (Neg)
--- NOTE | 2022-07-19 23:29 | Emergency Department Note ---
History of Present Illness General Chief complaint: Syncope (Near Syncope) Stated complaint: PASS OUT, FEVER Time Seen by Provider: 07/19/22 22:28 History of Present Illness Maximum Pain Intensity: 2 This is an 81-year-old male presenting to the emergency department for evaluation of weakness and fever. The patient states that he has had sinus congestion symptoms for the past week and went to his family doctor today for evaluation. He was diagnosed with sinus infection and started on Augmentin. The patient took 1 dose of the medication and feels like his sinus congestion has improved. While the patient was at home and laying on the couch he felt very hot and asked his to get the thermometer. The patient states that his temperature at home was 103 F. He layed on the couch and states that he "passed out" for an unknown length of time. When he got up he had weakness in his legs, which has happened before. The patient does not have distinct chest pain, chest tightness, shortness of breath, lightheadedness, or dizziness. He did get his flu shot this year. He does not have any known exposure to illness. He rates his discomfort a 2/10. Home Medications Medication Instructions Recorded Confirmed Type amlodipine 5 mg tablet 5 mg PO QPM 12/31/20 07/19/22 History aspirin 81 mg tablet,delayed 81 mg PO QPM 12/31/20 07/19/22 History release atorvastatin 20 mg tablet 20 mg PO QPM 12/31/20 07/19/22 History calcium carbonate 600 mg-vitamin 1 tab PO QPM 12/31/20 07/19/22 History D3 10 mcg (400 unit) tablet (Calcium 600 + D(3)) garlic 1,000 mg capsule 1,000 mg PO QPM 12/31/20 07/19/22 History omega 7-feg-ezg-fish oil 1,000 mg 1 cap PO QPM 12/31/20 07/19/22 History (120 mg-180 mg) capsule (Fish Oil) tamsulosin 0.4 mg capsule 0.4 mg PO QPM 05/20/22 07/19/22 History amoxicillin 875 mg-potassium 1 tab PO BID 07/19/22 07/19/22 History clavulanate 125 mg tablet Allergies Allergy/AdvReac Type Severity Reaction Status Date / Time tramadol AdvReac Intermediate NAUSEA Verified 07/19/22 22:43 Past Med/Surg History Medical History Allergic reaction Coronary artery disease follows with [facility] Enlarged prostate Hearing deficit BL REINOSO Hyperlipidemia Hypertension Leukemia dx'd 2013 -- pt unable to recall treatment MDS (myelodysplastic syndrome) Osteoarthritis Poor historian Surgical History H/O colonoscopy History of cardiac catheterization [place] 20 years ago -- unable to recall stent placement? History of left shoulder replacement History of right cataract surgery History of tonsillectomy History of tooth extraction S/P laparoscopic cholecystectomy (01/02/21) Laparoscopic Cholecystectomy with cholangiogram - Valeriano Martinez MD, FACS Family History Other No family history of adverse response to anesthesia Social History Smoking Status: Never smoker Second Hand Exposure: No; Hx Alcohol Use: No Hx Substance Use: No Preferred Language: [place] Communication Ability: Effective Medical Chief Technician Required: No Beliefs That Will Affect Care: None marital status: Current Living Situation: Spouse current occupational status: retired How many Children do You have: 1 Feels Safe at Home: Yes during the past year weight has: decreased > 10 lbs Assistive Devices: Denture - Upper, Denture - Lower, Glasses and Hearing Aid - Bilateral Review of Systems A total of 10 systems reviewed and were otherwise negative Physical Exam Vital Signs Vital Signs - 24 hr 07/19/22 21:52 07/19/22 23:10 07/19/22 23:30 Temperature 37.0 C Temperature Source Temporal Artery Scan Pulse Rate 92 H Pulse Rate [Apical] 70 Respiratory Rate 18 18 Respiratory Effort / Characteristics Non-Labored Spontaneous Non-Labored Respiratory Depth Normal Normal Respiratory Pattern Regular Blood Pressure 169/83 H 133/58 L Blood Pressure [Right Arm] 129/65 Blood Pressure Mean 111 83 Blood Pressure Mean [Right Arm] 86 Pulse Oximetry 99 94 Oxygen Delivery Method Room Air Room Air Sepsis Recent Fever Within 48 Hours Yes Sepsis New/Unexplained Change in Mental Status N/A Sepsis Action Taken by Nursing No Action Required 07/19/22 23:30 07/20/22 00:23 Temperature 36.9 C Temperature Source Oral Pulse Rate 64 Pulse Rate [Apical] 56 L Respiratory Rate 22 16 Respiratory Effort / Characteristics Non-Labored Respiratory Depth Normal Respiratory Pattern Blood Pressure Blood Pressure [Right Arm] 121/62 Blood Pressure Mean Blood Pressure Mean [Right Arm] 81 Pulse Oximetry 95 93 Oxygen Delivery Method Room Air Room Air Sepsis Recent Fever Within 48 Hours Sepsis New/Unexplained Change in Mental Status Sepsis Action Taken by Nursing VITALS: Vitals are noted on the nurse's note and reviewed by myself. Vital signs stable. GENERAL: Well-developed, well-nourished, white male, who is mildly ill-appearing but not toxic. HEAD: Normocephalic atraumatic. MOUTH: Mucous membranes moist. Tonsils are not enlarged. Pharynx without erythema, blood, or exudate. Uvula midline. Airway patent. NECK: Supple without nuchal rigidity. No lymphadenopathy. No thyromegaly. Cervical spine is nontender. HEART: Regular rate and rhythm without murmurs gallops or rubs. LUNGS: Clear to auscultation bilaterally without wheezes, rales or rhonchi. No retractions or accessory muscle use. ABDOMEN: Positive normal bowel sounds x 4. Soft, nontender, without masses or organomegaly. No guarding or rebound tenderness. MUSCULOSKELETAL: No muscle atrophy, erythema, or edema noted. Full range of motion in all extremities. NEURO: Patient was alert and oriented to person place and time. CN II through XI I grossly intact. GCS 15 Course Administered Medications Discontinued Medications Sodium Chloride (Nss 1000ml) 1,000 mls @ 999 mls/hr IV .Q1H1M MICHELLE Stop: 07/19/22 23:45 Last Infusion: 07/19/22 23:45 Dose: 0 mls/hr Documented By: Admin: 07/19/22 22:45 Dose: 999 mls/hr Documented By: GERI Acetaminophen (Ofirmev) 1,000 mg in 100 mls @ 400 mls/hr IV NOW STA Stop: 07/19/22 22:48 Last Infusion: 07/19/22 23:00 Dose: 0 mls/hr Documented By: Admin: 07/19/22 22:45 Dose: 400 mls/hr Documented By: GERI Medical Decision Making Differential Diagnosis Differential includes viral infection, sepsis, acute coronary syndrome, myocardial infarction, CVA, TIA, anemia, infection, pneumonia, UTI, pyelonephritis, poor nutrition, dehydration, electrolyte disturbance,hypoglycemia. Laboratory Data Result diagrams: 07/19/22 22:21 07/19/22 22:21 Lab Results 07/19/22 07/19/22 07/19/22 Range/Units 22:21 22:21 22:21 WBC 10.74 (4.8-10.8) K/ul RBC 4.12 L (4.63-6.08) M/uL Hgb 13.3 L (14.0-18.0) g/dl Hct 38.3 L (40.1-51.0) % MCV 93.0 (80.0-100.0) fL MCH 32.3 (25.0-34.0) pg MCHC 34.7 (32.0-36.0) g/dL RDW Std Deviation 46.8 H (36.4-46.3) fL RDW Coeff of Marisela 13.8 (11.5-14.5) % Plt Count 85 L (130-400) K/uL MPV 10.2 (9.4-12.4) fL Immature Gran % (Auto) 0.2 % Neut % (Auto) 84.1 % Lymph % (Auto) 6.0 % Bureau % (Auto) 8.7 % Eos % (Auto) 0.7 % Baso % (Auto) 0.3 % Neut # (Auto) 9.04 H (1.4-6.5) K/uL Lymph # (Auto) 0.64 L (1.2-3.4) K/uL Bureau # (Auto) 0.93 H (0.24-0.82) K/uL Eos # (Auto) 0.08 (0-0.50) K/uL Baso # (Auto) 0.03 (0-0.2) K/uL Immature Gran # (Auto) 0.02 (0.00-0.02) K/uL Sodium 139 (136-145) mmol/L Potassium 3.8 (3.5-5.1) mmol/L Chloride 106 (98-107) mmol/L Carbon Dioxide 25 (21-32) mmol/L Anion Gap 8 (3-11) BUN 20 (6-23) mg/dl Creatinine 1.06 (0.6-1.4) mg/dl Est Cr Clr Drug Dosing 56.2 ml/min Est GFR ( Amer) 74.9 ml/min Est GFR (Non-Af Amer) 64.6 ml/min BUN/Creatinine Ratio 18.9 (10-20) Glucose 121 H (70-99(Fasting)) mg/dl Lactate (0.4-2.0) mmol/L Calcium 8.9 (8.5-10.1) mg/dl Total Bilirubin 1.6 H (0.2-1.0) mg/dl AST 19 (13-39) U/L ALT 14 (7-52) U/L Alkaline Phosphatase 79 (34-104) U/L Troponin I High Sens 4.5 (0-20) pg/ml Total Protein 7.2 (6.0-8.3) gm/dl Albumin 4.5 (3.4-5.0) gm/dl Globulin 2.7 (2.5-4.0) gm/dl Albumin/Globulin Ratio 1.7 (0.9-2) Procalcitonin (0-0.5) ng/ml TSH 1.154 (0.300-4.500) uIu/ml SARS-CoV-2 (PCR) (Negative) Influenza Type A (PCR) (Neg) Influenza Type B (PCR) (Neg) RSV (RT-PCR) (Neg) 07/19/22 07/19/22 07/19/22 Range/Units 22:21 22:30 22:46 WBC (4.8-10.8) K/ul RBC (4.63-6.08) M/uL Hgb (14.0-18.0) g/dl Hct (40.1-51.0) % MCV (80.0-100.0) fL MCH (25.0-34.0) pg MCHC (32.0-36.0) g/dL RDW Std Deviation (36.4-46.3) fL RDW Coeff of Marisela (11.5-14.5) % Plt Count (130-400) K/uL MPV (9.4-12.4) fL Immature Gran % (Auto) % Neut % (Auto) % Lymph % (Auto) % Bureau % (Auto) % Eos % (Auto) % Baso % (Auto) % Neut # (Auto) (1.4-6.5) K/uL Lymph # (Auto) (1.2-3.4) K/uL Bureau # (Auto) (0.24-0.82) K/uL Eos # (Auto) (0-0.50) K/uL Baso # (Auto) (0-0.2) K/uL Immature Gran # (Auto) (0.00-0.02) K/uL Sodium (136-145) mmol/L Potassium (3.5-5.1) mmol/L Chloride (98-107) mmol/L Carbon Dioxide (21-32) mmol/L Anion Gap (3-11) BUN (6-23) mg/dl Creatinine (0.6-1.4) mg/dl Est Cr Clr Drug Dosing ml/min Est GFR ( Amer) ml/min Est GFR (Non-Af Amer) ml/min BUN/Creatinine Ratio (10-20) Glucose (70-99(Fasting)) mg/dl Lactate 0.7 (0.4-2.0) mmol/L Calcium (8.5-10.1) mg/dl Total Bilirubin (0.2-1.0) mg/dl AST (13-39) U/L ALT (7-52) U/L Alkaline Phosphatase (34-104) U/L Troponin I High Sens (0-20) pg/ml Total Protein (6.0-8.3) gm/dl Albumin (3.4-5.0) gm/dl Globulin (2.5-4.0) gm/dl Albumin/Globulin Ratio (0.9-2) Procalcitonin 0.05 (0-0.5) ng/ml TSH (0.300-4.500) uIu/ml SARS-CoV-2 (PCR) NEGATIVE (Negative) Influenza Type A (PCR) Negative (Neg) Influenza Type B (PCR) Negative (Neg) RSV (RT-PCR) Positive A* (Neg) 07/20/22 Range/Units 00:36 WBC (4.8-10.8) K/ul RBC (4.63-6.08) M/uL Hgb (14.0-18.0) g/dl Hct (40.1-51.0) % MCV (80.0-100.0) fL MCH (25.0-34.0) pg MCHC (32.0-36.0) g/dL RDW Std Deviation (36.4-46.3) fL RDW Coeff of Marisela (11.5-14.5) % Plt Count (130-400) K/uL MPV (9.4-12.4) fL Immature Gran % (Auto) % Neut % (Auto) % Lymph % (Auto) % Bureau % (Auto) % Eos % (Auto) % Baso % (Auto) % Neut # (Auto) (1.4-6.5) K/uL Lymph # (Auto) (1.2-3.4) K/uL Bureau # (Auto) (0.24-0.82) K/uL Eos # (Auto) (0-0.50) K/uL Baso # (Auto) (0-0.2) K/uL Immature Gran # (Auto) (0.00-0.02) K/uL Sodium (136-145) mmol/L Potassium (3.5-5.1) mmol/L Chloride (98-107) mmol/L Carbon Dioxide (21-32) mmol/L Anion Gap (3-11) BUN (6-23) mg/dl Creatinine (0.6-1.4) mg/dl Est Cr Clr Drug Dosing ml/min Est GFR ( Amer) ml/min Est GFR (Non-Af Amer) ml/min BUN/Creatinine Ratio (10-20) Glucose (70-99(Fasting)) mg/dl Lactate (0.4-2.0) mmol/L Calcium (8.5-10.1) mg/dl Total Bilirubin (0.2-1.0) mg/dl AST (13-39) U/L ALT (7-52) U/L Alkaline Phosphatase (34-104) U/L Troponin I High Sens 5.8 (0-20) pg/ml Total Protein (6.0-8.3) gm/dl Albumin (3.4-5.0) gm/dl Globulin (2.5-4.0) gm/dl Albumin/Globulin Ratio (0.9-2) Procalcitonin (0-0.5) ng/ml TSH (0.300-4.500) uIu/ml SARS-CoV-2 (PCR) (Negative) Influenza Type A (PCR) (Neg) Influenza Type B (PCR) (Neg) RSV (RT-PCR) (Neg) Imaging Data Radiologist's Impression: Chest X-Ray 07/19/22 22:16 SINGLE VIEW CHEST CLINICAL HISTORY: Generalized weakness. FINDINGS: An AP, portable, upright chest radiograph is compared to study dated 01/07/2021 and correlated with chest CT dated 12/31/2020. The heart is enlarged noting atherosclerotic calcification of the thoracic aorta. The pulmonary vasculature is none congestive. Chronic interstitial thickening similar to previous. The lungs and pleural spaces are clear noting bibasilar scarring/atelectasis. No pneumothorax is seen. The skeletal structures are osteopenic. The bony thorax is grossly intact. A left shoulder arthroplasty is in place. IMPRESSION: Cardiomegaly with no active disease in the chest. ACT 112: Negative or not required by law. Electronically signed by: Theodore Palacios M.D. 07/19/2022 10:32 PM ECG Data Additional Comments: Normal sinus rhythm T wave abnormality @80 bpm consider inferolateral ischemia Abnormal ECG When compared with ECG of 07-JAN-2021 03:27, T wave inversion now evident in Inferior leads T wave inversion now evident in Anterolateral leads MDM Narrative Physical exam and history were performed. Nursing notes, EMR, and Medication List were personally reviewed. Patient appears to have weakness and fever symptoms bringing him to the ER. IV access was established and labs are obtained. Viral swabs and blood cultures were gathered. Patient was hydrated with normal saline and given IV Tylenol. An order was placed for continuous cardiac monitoring. The monitor shows a rate of 56 with sinus bradycardic rhythm. The patient's blood work is as above and was reviewed. He does not have a significantly elevated white blood cell count or gross anemia. Transaminases are not diagnostic. Lactic is negative. Initial troponin is negative. Viral studies are POSITIVE for RSV infection. COVID is negative. The patient's EKG today does show lateral depression when compared to previous EKGs at this facility. I did engage with case management who was able to acquire EKGs from [facility] system. The patient did have an EKG in March of this year, and the patient does continue to have lateral depression even compared to the EKG a few months ago. The patient does not have chest pain, but does complain of weakness. With his RSV infection and EKG changes he does not seem well for discharge. I did discuss options of care with the patient, who is comfortable staying in the hospital. The case was discussed with the on-call hospitalist team who agreed to evaluate the patient here in the ER. Please see their dictation for further patient course, plan, disposition. The chart was completed utilizing [employer] Speech Voice Recognition Software. Grammatical errors, random word insertions, pronoun errors, and incomplete sentences are an occasional consequence of this system due to software limitations, ambient noise, and hardware issues. Any formal questions or concerns about the content, text, or information contained within the body of this dictation should be directly addressed to the provider for clarification. . Impression & Plan Weakness, RSV infection, Acute electrocardiogram changes Discharge Plan Visit Data Chief Complaint: Syncope (Near Syncope) Stated Complaint: PASS OUT, FEVER ED Provider: Freda Jacques ED Midlevel Provider: Alessandro Spann Discharge Problem: Weakness, RSV infection, Acute electrocardiogram changes Forms Stand Alone Forms: [facility] [employer] Prescriptions Prescriptions: No Action amoxicillin-pot clavulanate 875-125 mg tablet 1 tab PO BID Rx Instructions: STARTED 07/19/22 FOR 10 DAYS. atorvastatin 20 mg tablet 20 mg PO QPM amlodipine 5 mg tablet 5 mg PO QPM aspirin 81 mg Tablet,Delayed Release (Dr/Ec) 81 mg PO QPM garlic 1,000 mg Capsule 1,000 mg PO QPM calcium carbonate-vitamin D3 [Calcium 600 + D(3)] 600 mg(1,500mg) -400 unit Tablet 1 tab PO QPM omega 5-yav-obb-fish oil [Fish Oil] 1,000 mg (120 mg-180 mg) Capsule 1 cap PO QPM tamsulosin 0.4 mg Capsule 0.4 mg PO QPM Referrals Referrals: Frederick Ortiz MD [Primary Care Provider] -
[2022-07-20 02:24] LABS: Appearance Urine Clear (Clear); Bacteria Urine Automated Negative (Negative); Bilirubin Urine Negative (Negative); Blood Urine 1+ (Negative); Color Urine Yellow; Glucose Urine UA Negative (Negative); Ketones Urine 1+ (Negative); Leukocyte Esterase Urine Negative (Negative); Nitrite Urine Negative (Negative); Protein Urine 1+ (Negative); Specific Gravity Urine 1.025 (1.000-1.030); Urobilinogen Urine Negative (Negative)
[2022-07-20] MEDS ORDERED: NITROGLYCERIN SL 0.4 MG/TAB TAB SL PRN (02:45)
[2022-07-20] MEDS ORDERED: ACETAMINOPHEN 325 MG TAB PO PRN (02:45)
[2022-07-20] MEDS ORDERED: ONDANSETRON INJ 2 MG/ML 2 ML VIAL IV PRN (02:45)
--- NOTE | 2022-07-20 02:57 | History and Physical Report ---
DATE OF ADMISSION: 07/20/2022. CHIEF COMPLAINT: Fever, syncope. HISTORY OF PRESENT ILLNESS: An 81-year-old male with past medical history significant for hyperlipidemia, CAD, GERD, history of MDS, who presents with high fever and syncope at home. The patient is having some runny nose, cough with bringing up phlegm, sinus pain going on for last 1 week. Went to family doctor on 07/19/2022 and was prescribed Augmentin. Seems took one dose , seems sinus pain is somewhat improved.But while the patient was at home lying on his couch, he suddenly felt very hot and he passed out, he does not know how long he passed out, but when he woke up, he was confused for 4-5 minutes. Then he asked his to check his temperature,and it was 103.6 degrees, and also when he is walking, he is having staggering gait, so that is why he came to the hospital. Currently in the ER, his hemodynamics are stable. He is afebrile here. He received Tylenol in the ER and also his COVID came back negative. Influenza A and B PCR negative, but RSV PCR came back positive. Chest x-ray, no acute findings. EKG shows some T-wave inversions in the anterolateral leads. The patient denies any chest pain, no shortness of breath. Today, he also had 3 or 4 episodes of vomiting, but no blood in the vomitus. He also had loose stools today. Currently, no headache. Denies any sore throat. Some abdominal discomfort from nausea and vomiting. He states when he passed out, there was no biting of his tongue and no incontinence of stool or urine. No swelling in the legs. ALLERGIES: TRAMADOL. PAST MEDICAL HISTORY: As mentioned above. PAST SURGICAL HISTORY: Laparoscopic cholecystectomy, right inguinal hernia repair. MEDICATIONS: The patient is on amlodipine 5 mg p.o. daily, Augmentin 1 tablet p.o. b.i.d., aspirin 81 mg p.o. daily, atorvastatin 20 mg p.o. daily, calcium carbonate plus vitamin D one tablet p.o. p.m., omega fish oil 1 capsule p.o. a.m., Flomax 0.4 mg p.o. q.p.m. FAMILY HISTORY: Significant for brother has alcoholism; father has larynx and lung cancer; mother has spine cancer; brother has diabetes; maternal grandmother has diabetes; brother has rheumatic fever. SOCIAL HISTORY: , no smoking, no alcohol, no drug use. REVIEW OF SYSTEMS: As per HPI. Rest of the review of systems is negative. PHYSICAL EXAMINATION: GENERAL: The patient is of moderate build, not in acute distress. VITAL SIGNS: Temperature 36.9, pulse 56, respiratory rate 16, blood pressure 121/62, oxygen 93% on room air. HEENT: Pupils equal, round, and reactive to light. Oral mucosa moist. NECK: No JVD, no neck masses. CARDIOVASCULAR: S1 and S2 heard. Regular rate and rhythm. No murmur, no gallop. RESPIRATORY SYSTEM: Normal AP diameter. No accessory muscle use. No wheezing, no crackles. ABDOMEN: Soft, bowel sounds present, nontender, no distention. CENTRAL NERVOUS SYSTEM: Alert and oriented, hard of hearing. Insight is okay. No facial droop. Speech is clear. Obeys simple commands. EXTREMITIES: No edema, no erythema. LABORATORY DATA: WBC 10.7, hemoglobin 13.3, hematocrit 38.3, platelets 285. Sodium 139, potassium 3.8, chloride 106, bicarbonate 25, BUN 20, creatinine 1.06, serum glucose 121. Lactate 0.7, calcium 8.9, total bilirubin 1.6, AST 19, ALT 14, alkaline phosphatase 79. Troponin I high sensitivity 5.8. Procalcitonin 0.05. TSH is 1.15. SARS-CoV-2 PCR negative. Influenza A and B PCR negative. RSV PCR positive. IMAGING DATA: Chest x-ray, cardiomegaly with no active disease in the chest. EKG: Shows sinus bradycardia at a rate of 55. T-wave inversions in anterolateral leads, more pronounced than before. ASSESSMENT AND PLAN: 1. This is an 81-year-old male who presents with syncope and high fever and found to be RSV positive syncope, probably from fever and illness. Will check orthostatics, echocardiogram. Monitor in the tele. Also he has some T-wave inversions in anterolateral leads, more pronounced than before. Consult cardiology in the a.m. Follow serial cardiac enzymes. Closely monitor in the tele. 2. RSV positive. Droplet isolation, IV fluids, supportive care. 3. History of coronary artery disease: On aspirin, statin, and to follow above. 4. History of hypertension: On amlodipine. Follow the blood pressure. 5. History of Hyperlipidemia: On statin. 6. History of benign prostatic hypertrophy: On Flomax. 7. Deep venous thrombosis prophylaxis.Scds 8. 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 Status post single dose of Cytoxan on 06/13/2022. Seems to be stable as per hem/onc notes Follow up with hem/onc. DISPOSITION: Observation in tele floor. Level 1 full code. PT/OT prior to discharge. Social service to help with discharge planning. Job ID: [id number] [id number]
[2022-07-20] MEDS: D5W AND NSS 1,000 ML IV SCH ×3 (03:46→23:16)
[2022-07-20] MEDS ORDERED: PNEUMOCOCCAL Polysaccharide Vaccine 25mcg/0.5mL vial/Syr IM ONE (06:00)
[2022-07-20 06:39] LABS: Hematocrit (blood only) 34.3 % (40.1-51.0); Hemoglobin 11.8 g/dl (14.0-18.0); Mean Corpuscular Hemoglobin 32.5 pg (25.0-34.0); Mean Corpuscular Hgb Conc 34.4 g/dL (32.0-36.0); Mean Corpuscular Volume 94.5 fL (80.0-100.0); Mean Platelet Volume 10.6 fL (9.4-12.4); Platelet Count 81 K/uL (130-400); RDW Standard Deviation 48.3 fL (36.4-46.3); Red Blood Count 3.63 M/uL (4.63-6.08); White Blood Count 10.23 K/ul (4.8-10.8)
[2022-07-20 06:40] LABS: Troponin I High Sensitivity 5.1 pg/ml (0-20)
[2022-07-20 06:42] LABS: BUN Creatinine Ratio 19.4 (10-20); Calcium 8.1 mg/dl (8.5-10.1); Creatinine Clr Calc Pharmacy 59.6 ml/min; Est GFR (African American) 77.5 ml/min; Est GFR (Non-African American) 66.9 ml/min; Magnesium 1.9 mg/dl (1.7-2.4); Potassium 3.7 mmol/L (3.5-5.1)
[2022-07-20 06:49] LABS: Basophils # (auto) 0.03 K/uL (0-0.2); Basophils % (auto) 0.3 %; Eosinophils # (auto) 0.07 K/uL (0-0.50); Eosinophils % (auto) 0.7 %; Immature Granulocytes # (auto) 0.04 K/uL (0.00-0.02); Immature Granulocytes % (auto) 0.4 %; Lymphocytes # (auto) 1.11 K/uL (1.2-3.4); Lymphocytes % (auto) 10.9 %; Monocytes # (auto) 1.01 K/uL (0.24-0.82); Monocytes % (auto) 9.9 %; Neutrophils # (auto) 7.97 K/uL (1.4-6.5); Neutrophils % (auto) 77.8 %
--- NOTE | 2022-07-20 07:58 | Cardiology Consultation ---
Date of Consultation July 20, 2022 Assessment & Plan (1) Weakness: (2) RSV infection: (3) MDS (myelodysplastic syndrome): (4) Coronary artery disease: Plan As per protocol and due to the patient's isolation precautions from the RSV, a chart consultation was performed. I reviewed the medical record as well as the record from [facility]. The patient needs supportive care. From a cardiac standpoint he is currently clinically stable. He is maintaining sinus rhythm. The most critical problems at this time are the RSV and associated myelodysplastic syndrome. History of Present Illness Attending Physician: Prem Chiu MD History of Present Illness This is an 81-year-old patient with a past medical history outlined below. He has been admitted with RSV. Currently in isolation and receiving supportive care. The information is taken from the medical record. 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, complicated by pneumonia, aspergillosis 2013 6.Status post cholecystectomy in December of 2020 Allergies Allergy/AdvReac Type Severity Reaction Status Date / Time tramadol AdvReac Intermediate NAUSEA Verified 07/19/22 22:43 Home Medications Medication Instructions Recorded Confirmed Type amlodipine 5 mg tablet 5 mg PO QPM 12/31/20 07/19/22 History aspirin 81 mg tablet,delayed 81 mg PO QPM 12/31/20 07/19/22 History release atorvastatin 20 mg tablet 20 mg PO QPM 12/31/20 07/19/22 History calcium carbonate 600 mg-vitamin 1 tab PO QPM 12/31/20 07/19/22 History D3 10 mcg (400 unit) tablet (Calcium 600 + D(3)) garlic 1,000 mg capsule 1,000 mg PO QPM 12/31/20 07/19/22 History omega 6-imw-zfr-fish oil 1,000 mg 1 cap PO QPM 12/31/20 07/19/22 History (120 mg-180 mg) capsule (Fish Oil) tamsulosin 0.4 mg capsule 0.4 mg PO QPM 05/20/22 07/19/22 History amoxicillin 875 mg-potassium 1 tab PO BID 07/19/22 07/19/22 History clavulanate 125 mg tablet Patient History Medical History Allergic reaction Coronary artery disease follows with [facility] Enlarged prostate Hearing deficit BL REINOSO Hyperlipidemia Hypertension Leukemia dx'd 2013 -- pt unable to recall treatment MDS (myelodysplastic syndrome) Osteoarthritis Poor historian Surgical History H/O colonoscopy History of cardiac catheterization [place] 20 years ago -- unable to recall stent placement? History of left shoulder replacement History of right cataract surgery History of tonsillectomy History of tooth extraction S/P laparoscopic cholecystectomy (01/02/21) Laparoscopic Cholecystectomy with cholangiogram - Valeriano Martinez MD, FACS Family History Other No family history of adverse response to anesthesia Social History Smoking Status: Never smoker Second Hand Exposure: No; Do You Dip or Chew Tobacco: No; Hx Alcohol Use: No Hx Substance Use: No Preferred Language: Samoan Communication Ability: Effective Air Conditioning Unit Tester Required: No Beliefs That Will Affect Care: None marital status: Current Living Situation: Spouse current occupational status: retired How many Children do You have: 1 Feels Safe at Home: Yes Safety Concerns: Feels Safe At This Time during the past year weight has: decreased > 10 lbs Assistive Devices: Denture - Upper, Denture - Lower, Glasses and Hearing Aid - Bilateral Review of Systems Review of Systems: Unobtainable Physical Exam Physical Exam: Not completed Results & Data ([place]) Vital Signs (Past 12 Hours) Vital Signs Temp Pulse Pulse Resp BP BP Pulse Ox 07/20/22 07:00 50 L 18 119/54 L 93 07/20/22 03:00 55 L 20 118/59 L 94 07/20/22 02:52 56 L 20 121/55 L 95 07/20/22 02:01 53 L 18 136/63 95 07/20/22 00:23 36.9 C 56 L 16 121/62 93 07/19/22 23:30 64 22 95 07/19/22 23:30 133/58 L 12/20/22 23:10 70 18 129/65 94 07/19/22 21:52 37.0 C 92 H 18 169/83 H 99 O2 Del Method 07/20/22 07:00 Room Air 07/20/22 03:00 07/20/22 02:52 Room Air 07/20/22 02:01 Room Air 07/20/22 00:23 Room Air 07/19/22 23:30 Room Air 07/19/22 23:30 07/19/22 23:10 Room Air 07/19/22 21:52 Room Air Laboratory Results Laboratory Results - last 24 hr 07/19/22 07/19/22 07/19/22 22:21 22:21 22:21 WBC 10.74 RBC 4.12 L Hgb 13.3 L Hct 38.3 L MCV 93.0 MCH 32.3 MCHC 34.7 RDW Std Deviation 46.8 H RDW Coeff of Marisela 13.8 Plt Count 85 L MPV 10.2 Immature Gran % (Auto) 0.2 Neut % (Auto) 84.1 Lymph % (Auto) 6.0 [place] % (Auto) 8.7 Eos % (Auto) 0.7 Baso % (Auto) 0.3 Neut # (Auto) 9.04 H Lymph # (Auto) 0.64 L [place] # (Auto) 0.93 H Eos # (Auto) 0.08 Baso # (Auto) 0.03 Immature Gran # (Auto) 0.02 Sodium 139 Potassium 3.8 Chloride 106 Carbon Dioxide 25 Anion Gap 8 BUN 20 Creatinine 1.06 Est Cr Clr Drug Dosing 56.2 Est GFR ( Amer) 74.9 Est GFR (Non-Af Amer) 64.6 BUN/Creatinine Ratio 18.9 Glucose 121 H Lactate Calcium 8.9 Magnesium Total Bilirubin 1.6 H AST 19 ALT 14 Alkaline Phosphatase 79 Troponin I High Sens 4.5 Total Protein 7.2 Albumin 4.5 Globulin 2.7 Albumin/Globulin Ratio 1.7 Procalcitonin TSH 1.154 Urine Color Urine Appearance Urine pH Ur Specific [place] Urine Protein Urine Glucose (UA) Urine Ketones Urine Blood Urine Nitrite Urine Bilirubin Urine Urobilinogen Ur Leukocyte Esterase Urine WBC (Auto) Urine RBC (Auto) U Hyaline Cast (Auto) U Epithel Cells (Auto) Urine Bacteria (Auto) SARS-CoV-2 (PCR) Influenza Type A (PCR) Influenza Type B (PCR) RSV (RT-PCR) 07/19/22 07/19/22 07/19/22 22:21 22:30 22:46 WBC RBC Hgb Hct MCV MCH MCHC RDW Std Deviation RDW Coeff of Marisela Plt Count MPV Immature Gran % (Auto) Neut % (Auto) Lymph % (Auto) [place] % (Auto) Eos % (Auto) Baso % (Auto) Neut # (Auto) Lymph # (Auto) [place] # (Auto) Eos # (Auto) Baso # (Auto) Immature Gran # (Auto) Sodium Potassium Chloride Carbon Dioxide Anion Gap BUN Creatinine Est Cr Clr Drug Dosing Est GFR ( Amer) Est GFR (Non-Af Amer) BUN/Creatinine Ratio Glucose Lactate 0.7 Calcium Magnesium Total Bilirubin AST ALT Alkaline Phosphatase Troponin I High Sens Total Protein Albumin Globulin Albumin/Globulin Ratio Procalcitonin 0.05 TSH Urine Color Urine Appearance Urine pH Ur Specific [place] Urine Protein Urine Glucose (UA) Urine Ketones Urine Blood Urine Nitrite Urine Bilirubin Urine Urobilinogen Ur Leukocyte Esterase Urine WBC (Auto) Urine RBC (Auto) U Hyaline Cast (Auto) U Epithel Cells (Auto) Urine Bacteria (Auto) SARS-CoV-2 (PCR) NEGATIVE Influenza Type A (PCR) Negative Influenza Type B (PCR) Negative RSV (RT-PCR) Positive A* 07/20/22 07/20/22 07/20/22 00:36 02:00 05:38 WBC 10.23 RBC 3.63 L Hgb 11.8 L Hct 34.3 L MCV 94.5 MCH 32.5 MCHC 34.4 RDW Std Deviation 48.3 H RDW Coeff of Marisela 14.0 Plt Count 81 L MPV 10.6 Immature Gran % (Auto) 0.4 Neut % (Auto) 77.8 Lymph % (Auto) 10.9 [place] % (Auto) 9.9 Eos % (Auto) 0.7 Baso % (Auto) 0.3 Neut # (Auto) 7.97 H Lymph # (Auto) 1.11 L [place] # (Auto) 1.01 H Eos # (Auto) 0.07 Baso # (Auto) 0.03 Immature Gran # (Auto) 0.04 H Sodium Potassium Chloride Carbon Dioxide Anion Gap BUN Creatinine Est Cr Clr Drug Dosing Est GFR ( Amer) Est GFR (Non-Af Amer) BUN/Creatinine Ratio Glucose Lactate Calcium Magnesium Total Bilirubin AST ALT Alkaline Phosphatase Troponin I High Sens 5.8 Total Protein Albumin Globulin Albumin/Globulin Ratio Procalcitonin TSH Urine Color Yellow Urine Appearance Clear Urine pH 5.0 Ur Specific [place] 1.025 Urine Protein 1+ H Urine Glucose (UA) Negative Urine Ketones 1+ H Urine Blood 1+ H Urine Nitrite Negative Urine Bilirubin Negative Urine Urobilinogen Negative Ur Leukocyte Esterase Negative Urine WBC (Auto) 5-10 H Urine RBC (Auto) 5-10 H U Hyaline Cast (Auto) 1-5 U Epithel Cells (Auto) 10-20 H Urine Bacteria (Auto) Negative SARS-CoV-2 (PCR) Influenza Type A (PCR) Influenza Type B (PCR) RSV (RT-PCR) 07/20/22 05:38 WBC RBC Hgb Hct MCV MCH MCHC RDW Std Deviation RDW Coeff of Marisela Plt Count MPV Immature Gran % (Auto) Neut % (Auto) Lymph % (Auto) [place] % (Auto) Eos % (Auto) Baso % (Auto) Neut # (Auto) Lymph # (Auto) [place] # (Auto) Eos # (Auto) Baso # (Auto) Immature Gran # (Auto) Sodium 140 Potassium 3.7 Chloride 107 Carbon Dioxide 27 Anion Gap 6 BUN 20 Creatinine 1.03 Est Cr Clr Drug Dosing 59.6 Est GFR ( Amer) 77.5 Est GFR (Non-Af Amer) 66.9 BUN/Creatinine Ratio 19.4 Glucose 112 H Lactate Calcium 8.1 L Magnesium 1.9 Total Bilirubin AST ALT Alkaline Phosphatase Troponin I High Sens 5.1 Total Protein Albumin Globulin Albumin/Globulin Ratio Procalcitonin TSH Urine Color Urine Appearance Urine pH Ur Specific [place] Urine Protein Urine Glucose (UA) Urine Ketones Urine Blood Urine Nitrite Urine Bilirubin Urine Urobilinogen Ur Leukocyte Esterase Urine WBC (Auto) Urine RBC (Auto) U Hyaline Cast (Auto) U Epithel Cells (Auto) Urine Bacteria (Auto) SARS-CoV-2 (PCR) Influenza Type A (PCR) Influenza Type B (PCR) RSV (RT-PCR) Medications Administered Current Inpatient Medications Acetaminophen (Acetaminophen 325 Mg Tab) 650 mg PO Q4H PRN PRN Reason: Pain or Fever Stop: 08/19/22 02:44 Amlodipine Besylate (Amlodipine Besylate 5 Mg Tab) 5 mg PO QPM [facility] Stop: 08/19/22 20:59 Amoxicillin/Clavulanate Potassium (Amoxicillin/Clavulanate 875 Mg Tab) 1 tab PO BID [facility] Stop: 07/30/22 08:59 Last Admin: 07/20/22 08:41 Dose: 1 tab Aspirin (Aspirin 81 Mg Ectab) 81 mg PO QPM [facility] Stop: 08/19/22 20:59 Atorvastatin Calcium (Atorvastatin 20 Mg Tab) 20 mg PO QPM [facility] Stop: 08/19/22 20:59 Calcium/Vitamin D (Calcium 600mg + Vit D 400 Iu Tab) 1 tab PO QPM [facility] Stop: 08/19/22 20:59 Dextrose/Sodium Chloride (D5w And Nss) 1,000 mls @ 100 mls/hr IV .Q10H [facility] Stop: 08/19/22 02:44 Last Admin: 07/20/22 03:46 Dose: 100 mls/hr Nitroglycerin (Nitroglycerin Sl 0.4 Mg/Tab Tab) 0.4 mg SL UD PRN PRN Reason: Chest Pain Stop: 08/19/22 02:44 Ondansetron HCl (Ondansetron Inj 2 Mg/Ml 2 Ml Vial) 4 mg IV Q6H PRN PRN Reason: Nausea Stop: 08/19/22 02:44 Tamsulosin HCl (Tamsulosin Hcl 0.4 Mg Cap) 0.4 mg PO QPM [facility] Stop: 08/19/22 20:59
--- NOTE | 2022-07-20 08:03 | CT Scan Report ---
CT OF THE HEAD WITHOUT CONTRAST CLINICAL HISTORY: Syncope. COMPARISON STUDY: Head CT June 23, 2014. CT DOSE: 614.27 mGy.cm TECHNIQUE: Helical axial images of the head were obtained without IV contrast. Automated exposure con trol was utilized for the study. A dose lowering technique was utilized adhering to the principles o f ALARA. FINDINGS: No acute intracranial hemorrhage, midline shift or mass effect is present. The ventricular system is unremarkable. The basal cisterns are patent. No extra-axial collections are present. There are no findings to suggest acute dural sinus thrombosis or acute territorial infarct. No significant calvarial abnormalities are present. IMPRESSION: No acute intracranial findings. ACT 112: Negative or not required by law. Electronically signed by: Alf Sdihu M.D. 07/20/2022 8:02 AM
[2022-07-20] MEDS: AMOXICILLIN/CLAVULANATE 875 MG TAB PO SCH ×2 (08:41→21:27)
--- NOTE | 2022-07-20 14:04 | Hospitalist Progress Note ---
Date of Service July 20, 2022 Assessment & Plan (1) RSV infection: Plan: Patient is an 81 yr male who presents with syncope and high fever and found to be RSV positive syncope, probably from fever and illness. Syncope Sinus Bradycardia -CT Head:No acute intracranial findings. -Normal Orthostatics -ECHO: Left ventricle is normal in size. Left ventricle systolic function is normal. EF 55 to 60% with right ventricle systolic function normal. Left atriu m size is normal. Right atrial size is normal. Valvular pathology. No evidence of pulmonary hypertension. -Cardiac Enzymes negative -Monitor for any arrhythmias Appreciate cardiology input Will need ZIO monitor upon discharge Avoid AV kurt blocking agents RSV Infection -CXR:Cardiomegaly with no active disease in the chest. -Blood Cx:pending -Normal Procalcitonin -COVID, influenza screen negative -Empirically on Augmentin Saturating well on room air Conservative management CAD Continue Aspirin, statin Hypertension: On amlodipine Monitor Hyperlipidemia: on statin BPH on Flomax. 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 S/P single dose of Cytoxan on 06/13/2022 Follows with heme oncology as outpatient Monitor CBC No bleeding issues currently DVT Px: SCDs Re: Thrombocytopenia CODE STATUS Full code Disposition PT/OT prior to discharge Admission and Anticipated Discharge Date Admission Date: July 20, 2022 Subjective Patient is seen and examined at bedside Reports having cough with expectoration Also reports rhinitis Denies any significant dyspnea Also denies any chest pain, dizziness, nausea Discussed with patient's family at bedside No other complaints Review of Systems Review of Systems: All systems reviewed & are unremarkable except as noted in Subjective Physical Exam Physical Exam: Physical Exam: Vitals signs as noted above General Appearance:Moderately built and nourished, no apparent distress, + hearing aids Head: normocephalic, Atraumatic Eyes: normal inspection, EOMI Neck: supple, Trachea midline Respiratory/Chest: Normal breath sounds, CTA, No accessory muscle use Cardiovascular: S1, S2, No murmur Abdomen/GI:Soft, Non tender, Bowel sounds present Extremities/Musculoskeletal:normal inspection, no edema Neurologic/Psych:AAOX3, grossly no focal neurological deficits Skin: normal color, warm Results & Data Results & Data ([facility]) Vital Signs (Past 12 Hours) Vital Signs Pulse Pulse Resp BP BP Pulse Ox O2 Del Method 07/20/22 13:14 50 L 18 135/67 94 Room Air 07/20/22 07:00 50 L 18 119/54 L 93 Room Air 07/20/22 03:00 55 L 20 118/59 L 94 07/20/22 02:52 56 L 20 121/55 L 95 Room Air 07/20/22 02:01 53 L 18 136/63 95 Room Air Laboratory Results Short CBC 07/19/22 07/20/22 Range/Units 22:21 05:38 WBC 10.74 10.23 (4.8-10.8) K/ul Hgb 13.3 L 11.8 L (14.0-18.0) g/dl Hct 38.3 L 34.3 L (40.1-51.0) % Plt Count 85 L 81 L (130-400) K/uL BMP 07/19/22 07/20/22 22:21 05:38 Sodium 139 140 Potassium 3.8 3.7 Chloride 106 107 Carbon Dioxide 25 27 BUN 20 20 Creatinine 1.06 1.03 Glucose 121 H 112 H Calcium 8.9 8.1 L Liver Function 07/19/22 Range/Units 22:21 Total Bilirubin 1.6 H (0.2-1.0) mg/dl AST 19 (13-39) U/L ALT 14 (7-52) U/L Alkaline Phosphatase 79 (34-104) U/L Albumin 4.5 (3.4-5.0) gm/dl Urine 07/20/22 Range/Units 02:00 Urine Color Yellow Urine Appearance Clear (Clear) Urine pH 5.0 (4.5-7.5) Ur Specific [place] 1.025 (1.000-1.030) Urine Protein 1+ H (Negative) Urine Glucose (UA) Negative (Negative)
[2022-07-20] MEDS: TAMSULOSIN HCL 0.4 MG CAP PO SCH (21:27)
[2022-07-20] MEDS: ATORVASTATIN 20 MG TAB PO SCH (21:27)
[2022-07-20] MEDS: CALCIUM 600MG + VIT D 400 IU TAB PO SCH (21:27)
[2022-07-20] MEDS: ASPIRIN 81 MG ECTAB PO SCH (21:27)
[2022-07-20] MEDS: amLODIPine BESYLATE 5 MG TAB PO SCH (21:27)
--- NOTE | 2022-07-21 06:01 | Electrocardiogram Report ---
Test Reason : Blood Pressure : / mmHG Vent. Rate : 080 BPM Atrial Rate : 080 BPM P-R Int : 116 ms QRS Dur : 090 ms QT Int : 348 ms P-R-T Axes : 040 007 268 degrees QTc Int : 401 ms Normal sinus rhythm T wave abnormality, consider inferior ischemia T wave abnormality, consider anterior ischemia Abnormal ECG When compared with ECG of 07-JAN-2021 03:27, T wave inversion now evident in Inferior leads T wave inversion now evident in Anterolateral leads Confirmed by Nahum Douglas ([id number]) on 07/21/2022 6:01:27 AM Referred By: REFERRED SELF Confirmed By:Nahum Douglas
--- NOTE | 2022-07-21 06:03 | Electrocardiogram Report ---
Test Reason : Blood Pressure : / mmHG Vent. Rate : 055 BPM Atrial Rate : 055 BPM P-R Int : 182 ms QRS Dur : 086 ms QT Int : 410 ms P-R-T Axes : 046 -13 187 degrees QTc Int : 392 ms Sinus bradycardia Abnormal ECG When compared with ECG of 19-JUL-2022 22:12, T wave inversion more evident in Anterior leads Confirmed by Nahum Douglas ([id number] on 07/21/2022 6:03:06 AM Referred By: REFERRED SELF Confirmed By:Nahum Douglas
[2022-07-21 06:20] LABS: Hematocrit (blood only) 34.3 % (40.1-51.0); Hemoglobin 11.4 g/dl (14.0-18.0); Mean Corpuscular Hgb Conc 33.2 g/dL (32.0-36.0); Mean Corpuscular Volume 96.3 fL (80.0-100.0); Mean Platelet Volume 10.5 fL (9.4-12.4); Platelet Count 65 K/uL (130-400); RDW Coefficient of Variation 13.8 % (11.5-14.5); RDW Standard Deviation 49.3 fL (36.4-46.3); Red Blood Count 3.56 M/uL (4.63-6.08); White Blood Count 5.87 K/ul (4.8-10.8)
[2022-07-21 06:42] LABS: BUN Creatinine Ratio 18.9 (10-20); Calcium 7.9 mg/dl (8.5-10.1); Creatinine Clr Calc Pharmacy 68.3 ml/min; Est GFR (African American) 91.2 ml/min; Est GFR (Non-African American) 78.7 ml/min; Potassium 3.9 mmol/L (3.5-5.1)
[2022-07-21] MEDS: AMOXICILLIN/CLAVULANATE 875 MG TAB PO SCH ×2 (08:22→21:13)
[2022-07-21] MEDS: D5W AND NSS 1,000 ML IV SCH (08:22)
--- NOTE | 2022-07-21 11:31 | Cardiology Progress Note ---
Date of Service July 21, 2022 Assessment & Plan (1) Weakness: (2) RSV infection: (3) MDS (myelodysplastic syndrome): (4) Coronary artery disease: Plan I reviewed the patient's telemetry. He is in a sinus rhythm with sinus bradycardia. No high-grade heart block or significant pauses. The lowest heart rate was 39 bpm at a time when the patient was most likely sleeping. The patient is not on a beta-josh or other medications that would slow his heart rate. At this point I would just continue to observe. No treatment or additional testing at this time. Admission and Anticipated Discharge Date Admission Date: July 21, 2022 Subjective Information taken from the medical record and nursing. The patient had an uneventful night. Review of Systems Review of Systems: Unobtainable Physical Exam Physical Exam: Per protocol patient being in isolation for RSV no physical exam was completed. Results & Data ([facility]) Vital Signs (Past 12 Hours) Vital Signs Temp Pulse Pulse Resp BP Pulse Ox O2 Del Method 07/21/22 10:45 36.5 C 53 L 17 124/66 96 Room Air 07/21/22 10:28 50 L 07/21/22 10:28 Room Air 07/21/22 07:00 36.4 C L 56 L 19 124/64 96 Room Air 07/21/22 03:21 37.0 C 51 L 16 91 Room Air 07/21/22 00:26 52 L 07/20/22 23:54 37.0 C 54 L 18 142/69 H 95 Room Air Laboratory Results Laboratory Results - last 24 hr 07/20/22 07/20/22 07/21/22 11:27 16:38 06:10 WBC 5.87 RBC 3.56 L Hgb 11.4 L Hct 34.3 L MCV 96.3 MCH 32.0 MCHC 33.2 RDW Std Deviation 49.3 H RDW Coeff of Marisela 13.8 Plt Count 65 L MPV 10.5 Sodium Potassium Chloride Carbon Dioxide Anion Gap BUN Creatinine Est Cr Clr Drug Dosing Est GFR ( Amer) Est GFR (Non-Af Amer) BUN/Creatinine Ratio Glucose Calcium Troponin I High Sens 4.1 4.8 07/21/22 06:10 WBC RBC Hgb Hct MCV MCH MCHC RDW Std Deviation RDW Coeff of Marisela Plt Count MPV Sodium 138 Potassium 3.9 Chloride 109 H Carbon Dioxide 27 Anion Gap 2 L BUN 17 Creatinine 0.90 Est Cr Clr Drug Dosing 68.3 Est GFR ( Amer) 91.2 Est GFR (Non-Af Amer) 78.7 BUN/Creatinine Ratio 18.9 Glucose 107 H Calcium 7.9 L Troponin I High Sens Medications Administered Current Inpatient Medications Acetaminophen (Acetaminophen 325 Mg Tab) 650 mg PO Q4H PRN PRN Reason: Pain or Fever Stop: 08/19/22 02:44 Amlodipine Besylate (Amlodipine Besylate 5 Mg Tab) 5 mg PO QPM [facility] Stop: 08/19/22 20:59 Last Admin: 07/20/22 21:27 Dose: 5 mg Amoxicillin/Clavulanate Potassium (Amoxicillin/Clavulanate 875 Mg Tab) 1 tab PO BID [facility] Stop: 07/30/22 08:59 Last Admin: 07/21/22 08:22 Dose: 1 tab Aspirin (Aspirin 81 Mg Ectab) 81 mg PO QPM [facility] Stop: 08/19/22 20:59 Last Admin: 07/20/22 21:27 Dose: 81 mg Atorvastatin Calcium (Atorvastatin 20 Mg Tab) 20 mg PO QPM [facility] Stop: 08/19/22 20:59 Last Admin: 07/20/22 21:27 Dose: 20 mg Calcium/Vitamin D (Calcium 600mg + Vit D 400 Iu Tab) 1 tab PO QPM [facility] Stop: 08/19/22 20:59 Last Admin: 07/20/22 21:27 Dose: 1 tab Nitroglycerin (Nitroglycerin Sl 0.4 Mg/Tab Tab) 0.4 mg SL UD PRN PRN Reason: Chest Pain Stop: 08/19/22 02:44 Ondansetron HCl (Ondansetron Inj 2 Mg/Ml 2 Ml Vial) 4 mg IV Q6H PRN PRN Reason: Nausea Stop: 08/19/22 02:44 Tamsulosin HCl (Tamsulosin Hcl 0.4 Mg Cap) 0.4 mg PO QPM [facility] Stop: 08/19/22 20:59 Last Admin: 07/20/22 21:27 Dose: 0.4 mg
--- NOTE | 2022-07-21 13:15 | Hospitalist Progress Note ---
Date of Service July 21, 2022 Assessment & Plan (1) RSV infection: Plan: Patient is an 81 yr male who presents with syncope and high fever and found to be RSV positive syncope, probably from fever and illness. Syncope Sinus Bradycardia -CT Head:No acute intracranial findings. -Normal Orthostatics -ECHO: Left ventricle is normal in size. Left ventricle systolic function is normal. EF 55 to 60% with right ventricle systolic function normal. Left atriu m size is normal. Right atrial size is normal. Valvular pathology. No evidence of pulmonary hypertension. -Cardiac Enzymes negative TSH normal -Monitor for any arrhythmias Appreciate cardiology input Will need ZIO monitor upon discharge Avoid AV kurt blocking agents Will check nocturnal oximetry study RSV Infection -CXR:Cardiomegaly with no active disease in the chest. -Blood Cx:pending -Normal Procalcitonin -COVID, influenza screen negative -Empirically on Augmentin Saturating well on room air Conservative management Clinically improving CAD Continue Aspirin, statin Hypertension: On amlodipine Monitor Hyperlipidemia: on statin BPH on Flomax. 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 S/P single dose of Cytoxan on 06/13/2022 Follows with heme oncology as outpatient Monitor CBC No bleeding issues currently DVT Px: SCDs Re: Thrombocytopenia CODE STATUS Full code Disposition PT/OT prior to discharge Admission and Anticipated Discharge Date Admission Date: July 21, 2022 Subjective Patient is seen and examined at bedside States feeling a lot better today Only has minimal cough Denies any dyspnea today Bradycardic overnight-asymptomatic Denies any chest pain, dizziness, nausea Review of Systems Review of Systems: All systems reviewed & are unremarkable except as noted in Subjective Physical Exam Physical Exam: Physical Exam: Vitals signs as noted above General Appearance:Moderately built and nourished, no apparent distress, + hearing aids Head: normocephalic, Atraumatic Eyes: normal inspection, EOMI Neck: supple, Trachea midline Respiratory/Chest: Normal breath sounds, CTA, No accessory muscle use Cardiovascular: S1, S2, No murmur, +Bradycardia Abdomen/GI:Soft, Non tender, Bowel sounds present Extremities/Musculoskeletal:normal inspection, no edema Neurologic/Psych:AAOX3, grossly no focal neurological deficits Skin: normal color, warm Results & Data Results & Data ([facility]) Vital Signs (Past 12 Hours) Vital Signs Temp Pulse Pulse Resp BP Pulse Ox O2 Del Method 07/21/22 10:45 36.5 C 53 L 17 124/66 96 Room Air 07/21/22 10:28 50 L 07/21/22 10:28 Room Air 07/21/22 07:00 36.4 C L 56 L 19 124/64 96 Room Air 07/21/22 03:21 37.0 C 51 L 16 91 Room Air Laboratory Results Short CBC 07/21/22 Range/Units 06:10 WBC 5.87 (4.8-10.8) K/ul Hgb 11.4 L (14.0-18.0) g/dl Hct 34.3 L (40.1-51.0) % Plt Count 65 L (130-400) K/uL BMP 07/21/22 06:10 Sodium 138 Potassium 3.9 Chloride 109 H Carbon Dioxide 27 BUN 17 Creatinine 0.90 Glucose 107 H Calcium 7.9 L
[2022-07-21] MEDS: ATORVASTATIN 20 MG TAB PO SCH (21:12)
[2022-07-21] MEDS: ASPIRIN 81 MG ECTAB PO SCH (21:12)
[2022-07-21] MEDS: CALCIUM 600MG + VIT D 400 IU TAB PO SCH (21:13)
[2022-07-21] MEDS: TAMSULOSIN HCL 0.4 MG CAP PO SCH (21:13)
[2022-07-21] MEDS: amLODIPine BESYLATE 5 MG TAB PO SCH (21:13)
[2022-07-22 06:34] LABS: Hematocrit (blood only) 34.2 % (40.1-51.0); Hemoglobin 11.7 g/dl (14.0-18.0); Mean Corpuscular Hgb Conc 34.2 g/dL (32.0-36.0); Mean Corpuscular Volume 93.4 fL (80.0-100.0); Mean Platelet Volume 10.8 fL (9.4-12.4); Platelet Count 75 K/uL (130-400); RDW Coefficient of Variation 13.7 % (11.5-14.5); RDW Standard Deviation 46.5 fL (36.4-46.3); Red Blood Count 3.66 M/uL (4.63-6.08); White Blood Count 5.45 K/ul (4.8-10.8)
[2022-07-22 06:38] LABS: BUN Creatinine Ratio 18.9 (10-20); Calcium 8.4 mg/dl (8.5-10.1); Creatinine Clr Calc Pharmacy 64.7 ml/min; Est GFR (African American) 85.5 ml/min; Est GFR (Non-African American) 73.7 ml/min; Potassium 3.8 mmol/L (3.5-5.1)
[2022-07-22] MEDS: AMOXICILLIN/CLAVULANATE 875 MG TAB PO SCH (08:58)
--- NOTE | 2022-07-22 12:23 | Hospitalist Progress Note ---
Date of Service July 22, 2022 Assessment & Plan (1) RSV infection: Plan: Patient is an 81 yr male who presents with syncope and high fever and found to be RSV positive syncope, probably from fever and illness. Syncope Sinus Bradycardia -CT Head:No acute intracranial findings. -Normal Orthostatics -ECHO: Left ventricle is normal in size. Left ventricle systolic function is normal. EF 55 to 60% with right ventricle systolic function normal. Left atriu m size is normal. Right atrial size is normal. Valvular pathology. No evidence of pulmonary hypertension. -Cardiac Enzymes negative TSH normal -Monitor for any arrhythmias Appreciate cardiology input Will need ZIO monitor upon discharge Avoid AV kurt blocking agents Advised to follow-up with cardiology if he has recurrence of symptoms RSV Infection -CXR:Cardiomegaly with no active disease in the chest. -Blood Cx: No growth -Normal Procalcitonin -COVID, influenza screen negative -Empirically on Augmentin Conservative management Saturating well on room air CAD Continue Aspirin, statin Hypertension: On amlodipine Monitor Hyperlipidemia: on statin BPH on Flomax. 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 S/P single dose of Cytoxan on 06/13/2022 Follows with heme oncology as outpatient Monitor CBC No bleeding issues currently Thrombosis better today DVT Px: SCDs Re: Thrombocytopenia CODE STATUS Full code Disposition Home Admission and Anticipated Discharge Date Admission Date: July 21, 2022 Subjective Patient is seen and examined at bedside Feels better, no new complaints Dyspnea resolved Cough much improved Denies any chest pain, dizziness, nausea Review of Systems Review of Systems: All systems reviewed & are unremarkable except as noted in Subjective Physical Exam Physical Exam: Physical Exam: Vitals signs as noted above General Appearance:Moderately built and nourished, no apparent distress, + hearing aids Head: normocephalic, Atraumatic Eyes: normal inspection, EOMI Neck: supple, Trachea midline Respiratory/Chest: Normal breath sounds, CTA, No accessory muscle use Cardiovascular: S1, S2, No murmur Abdomen/GI:Soft, Non tender, Bowel sounds present Extremities/Musculoskeletal:normal inspection, no edema Neurologic/Psych:AAOX3, grossly no focal neurological deficits Skin: normal color, warm Results & Data Results & Data ([facility]) Vital Signs (Past 12 Hours) Vital Signs Temp Pulse Resp BP Pulse Ox O2 Del Method 07/22/22 10:55 36.5 C 63 19 147/70 H 96 12/23/22 10:02 Room Air 07/22/22 07:34 36.5 C 63 19 147/70 H 96 Room Air 07/22/22 03:20 36.8 C 63 18 142/67 H 95 Room Air Laboratory Results Short CBC 07/22/22 Range/Units 05:53 WBC 5.45 (4.8-10.8) K/ul Hgb 11.7 L (14.0-18.0) g/dl Hct 34.2 L (40.1-51.0) % Plt Count 75 L (130-400) K/uL [facility] 07/22/22 05:53 Sodium 139 Potassium 3.8 Chloride 108 H Carbon Dioxide 26 BUN 18 Creatinine 0.95 Glucose 96 Calcium 8.4 L
--- NOTE | 2022-07-22 12:29 | Discharge Summary ---
Date of Service July 22, 2022 Admission HPI Per Admitting Provider CHIEF COMPLAINT: Fever, syncope. HISTORY OF PRESENT ILLNESS: An 81-year-old male with past medical history significant for hyperlipidemia, CAD, GERD, history of MDS, who presents with high fever and syncope at home. The patient is having some runny nose, cough with bringing up phlegm, sinus pain going on for last 1 week. Went to family doctor on 07/19/2022 and was prescribed Augmentin. Seems took one dose , seems sinus pain is somewhat improved.But while the patient was at home lying on his couch, he suddenly felt very hot and he passed out, he does not know how long he passed out, but when he woke up, he was confused for 4-5 minutes. Then he asked his to check his temperature,and it was 103.6 degrees, and also when he is walking, he is having staggering gait, so that is why he came to [facility]. Currently in the ER, his hemodynamics are stable. He is afebrile here. He received Tylenol in the ER and also his COVID came back negative. Influenza A and B PCR negative, but RSV PCR came back positive. Chest x-ray, no acute findings. EKG shows some T-wave inversions in the anterolateral leads. The patient denies any chest pain, no shortness of breath. Today, he also had 3 or 4 episodes of vomiting, but no blood in the vomitus. He also had loose stools today. Currently, no headache. Denies any sore throat. Some abdominal discomfort from nausea and vomiting. He states when he passed out, there was no biting of his tongue and no incontinence of stool or urine. No swelling in the legs. Admission Exam Per Admitting Provider PHYSICAL EXAMINATION: GENERAL: The patient is of moderate build, not in acute distress. VITAL SIGNS: Temperature 36.9, pulse 56, respiratory rate 16, blood pressure 121/62, oxygen 93% on room air. HEENT: Pupils equal, round, and reactive to light. Oral mucosa moist. NECK: No JVD, no neck masses. CARDIOVASCULAR: S1 and S2 heard. Regular rate and rhythm. No murmur, no gallop. RESPIRATORY SYSTEM: Normal AP diameter. No accessory muscle use. No wheezing, no crackles. ABDOMEN: Soft, bowel sounds present, nontender, no distention. CENTRAL NERVOUS SYSTEM: Alert and oriented, hard of hearing. Insight is okay. No facial droop. Speech is clear. Obeys simple commands. EXTREMITIES: No edema, no erythema. Principal Diagnosis Syncope Sinus bradycardia Respiratory syncytial virus infection Thrombocytopenia Discharge Data Allergies Allergy/AdvReac Type Severity Reaction Status Date / Time tramadol AdvReac Intermediate NAUSEA Verified 07/19/22 22:43 Consultations 07/20/22 00:54 ED Decision to Admit Stat 07/20/22 08:00 Consult Cardiology Routine Procedures Performed Laboratory Results WBC 5.45 K/ul (4.8-10.8) 07/22/22 05:53 RBC 3.66 M/uL (4.63-6.08) L 07/22/22 05:53 Hgb 11.7 g/dl (14.0-18.0) L 07/22/22 05:53 Hct 34.2 % (40.1-51.0) L 07/22/22 05:53 MCV 93.4 fL (80.0-100.0) 07/22/22 05:53 MCH 32.0 pg (25.0-34.0) 07/22/22 05:53 MCHC 34.2 g/dL (32.0-36.0) 07/22/22 05:53 RDW Std Deviation 46.5 fL (36.4-46.3) H 07/22/22 05:53 RDW Coeff of Marisela 13.7 % (11.5-14.5) 07/22/22 05:53 Plt Count 75 K/uL (130-400) L 07/22/22 05:53 MPV 10.8 fL (9.4-12.4) 07/22/22 05:53 Immature Gran % (Auto) 0.4 % 07/20/22 05:38 Neut % (Auto) 77.8 % 07/20/22 05:38 Lymph % (Auto) 10.9 % 07/20/22 05:38 [place] % (Auto) 9.9 % 07/20/22 05:38 Eos % (Auto) 0.7 % 07/20/22 05:38 Baso % (Auto) 0.3 % 07/20/22 05:38 Neut # (Auto) 7.97 K/uL (1.4-6.5) H 07/20/22 05:38 Lymph # (Auto) 1.11 K/uL (1.2-3.4) L 07/20/22 05:38 [place] # (Auto) 1.01 K/uL (0.24-0.82) H 07/20/22 05:38 Eos # (Auto) 0.07 K/uL (0-0.50) 07/20/22 05:38 Baso # (Auto) 0.03 K/uL (0-0.2) 07/20/22 05:38 Immature Gran # (Auto) 0.04 K/uL (0.00-0.02) H 07/20/22 05:38 Sodium 139 mmol/L (136-145) 07/22/22 05:53 Potassium 3.8 mmol/L (3.5-5.1) 07/22/22 05:53 Chloride 108 mmol/L (98-107) H 07/22/22 05:53 Carbon Dioxide 26 mmol/L (21-32) 07/22/22 05:53 Anion Gap 5 (3-11) 07/22/22 05:53 BUN 18 mg/dl (6-23) 07/22/22 05:53 Creatinine 0.95 mg/dl (0.6-1.4) 07/22/22 05:53 Est Cr Clr Drug Dosing 64.7 ml/min 07/22/22 05:53 Est GFR ( Amer) 85.5 ml/min 07/22/22 05:53 Est GFR (Non-Af Amer) 73.7 ml/min 07/22/22 05:53 BUN/Creatinine Ratio 18.9 (10-20) 07/22/22 05:53 Glucose 96 mg/dl (70-99(Fasting)) 07/22/22 05:53 Lactate 0.7 mmol/L (0.4-2.0) 07/19/22 22:46 Calcium 8.4 mg/dl (8.5-10.1) L 07/22/22 05:53 Magnesium 2.0 mg/dl (1.7-2.4) 07/22/22 05:53 Total Bilirubin 1.6 mg/dl (0.2-1.0) H 07/19/22 22:21 AST 19 U/L (13-39) 07/19/22 22:21 ALT 14 U/L (7-52) 07/19/22 22:21 Alkaline Phosphatase 79 U/L (34-104) 07/19/22 22:21 Troponin I High Sens 4.8 pg/ml (0-20) 07/20/22 16:38 Total Protein 7.2 gm/dl (6.0-8.3) 07/19/22 22:21 Albumin 4.5 gm/dl (3.4-5.0) 07/19/22 22:21 Globulin 2.7 gm/dl (2.5-4.0) 07/19/22 22:21 Albumin/Globulin Ratio 1.7 (0.9-2) 07/19/22 22:21 Procalcitonin 0.05 ng/ml (0-0.5) 07/19/22 22:21 TSH 1.154 uIu/ml (0.300-4.500) 07/19/22 22:21 Urine Color Yellow 07/20/22 02:00 Urine Appearance Clear (Clear) 07/20/22 02:00 Urine pH 5.0 (4.5-7.5) 07/20/22 02:00 Ur Specific [place] 1.025 (1.000-1.030) 07/20/22 02:00 Urine Protein 1+ (Negative) H 07/20/22 02:00 Urine Glucose (UA) Negative (Negative) 07/20/22 02:00 Urine Ketones 1+ (Negative) H 07/20/22 02:00 Urine Blood 1+ (Negative) H 07/20/22 02:00 Urine Nitrite Negative (Negative) 07/20/22 02:00 Urine Bilirubin Negative (Negative) 07/20/22 02:00 Urine Urobilinogen Negative (Negative) 07/20/22 02:00 Ur Leukocyte Esterase Negative (Negative) 07/20/22 02:00 Urine WBC (Auto) 5-10 /hpf (0-5) H 07/20/22 02:00 Urine RBC (Auto) 5-10 /hpf (0-4) H 07/20/22 02:00 U Hyaline Cast (Auto) 1-5 /lpf (0-5) 07/20/22 02:00 U Epithel Cells (Auto) 10-20 /lpf (0-5) H 07/20/22 02:00 Urine Bacteria (Auto) Negative (Negative) 07/20/22 02:00 SARS-CoV-2 (PCR) NEGATIVE (Negative) 07/19/22 22:30 Influenza Type A (PCR) Negative (Neg) 07/19/22 22:30 Influenza Type B (PCR) Negative (Neg) 07/19/22 22:30 RSV (RT-PCR) Positive (Neg) A* 07/19/22 22:30 Impressions Chest X-Ray 07/19/22 22:16 SINGLE VIEW CHEST CLINICAL HISTORY: Generalized weakness. FINDINGS: An AP, portable, upright chest radiograph is compared to study dated 01/07/2021 and correlated with chest CT dated 12/31/2020. The heart is enlarged noting atherosclerotic calcification of the thoracic aorta. The pulmonary vasculature is none congestive. Chronic interstitial thickening similar to previous. The lungs and pleural spaces are clear noting bibasilar scarring/atelectasis. No pneumothorax is seen. The skeletal structures are osteopenic. The bony thorax is grossly intact. A left shoulder arthroplasty is in place. IMPRESSION: Cardiomegaly with no active disease in the chest. ACT 112: Negative or not required by law. Electronically signed by: Theodore Palacios M.D. 07/19/2022 10:[address] 07/20/22 01:41 CT OF THE HEAD WITHOUT CONTRAST CLINICAL HISTORY: Syncope. COMPARISON STUDY: Head CT June 23, 2014. CT DOSE: 614.27 mGy.cm TECHNIQUE: Helical axial images of the head were obtained without IV contrast. Automated exposure control was utilized for the study. A dose lowering technique was utilized adhering to the principles of ALARA. FINDINGS: No acute intracranial hemorrhage, midline shift or mass effect is present. The ventricular system is unremarkable. The basal cisterns are patent. No extra-axial collections are present. There are no findings to suggest acute dural sinus thrombosis or acute territorial infarct. No significant calvarial abnormalities are present. IMPRESSION: No acute intracranial findings. ACT 112: Negative or not required by law. Electronically signed by: Alf Sidhu M.D. 07/20/2022 8:02 AM Ordered Studies 07/20/22 01:41 CT head/brain wo con Urgent Hospital Course (1) RSV infection: Patient is an 81 yr male who presents with syncope and high fever and found to be RSV positive syncope, probably from fever and illness. Syncope Sinus Bradycardia -CT Head:No acute intracranial findings. -Normal Orthostatics -ECHO: Left ventricle is normal in size. Left ventricle systolic function is normal. EF 55 to 60% with right ventricle systolic function normal. Left atrium size is normal. Right atrial size is normal. Valvular pathology. No evidence of pulmonary hypertension. -Cardiac Enzymes negative TSH normal -Monitor for any arrhythmias Appreciate cardiology input Will need ZIO monitor upon discharge Avoid AV kurt blocking agents Advised to follow-up with cardiology if he has recurrence of symptoms RSV Infection -CXR:Cardiomegaly with no active disease in the chest. -Blood Cx: No growth -Normal Procalcitonin -COVID, influenza screen negative -Empirically on Augmentin Conservative management Saturating well on room air CAD Continue Aspirin, statin Hypertension: On amlodipine Monitor Hyperlipidemia: on statin BPH on Flomax. 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 S/P single dose of Cytoxan on 06/13/2022 Follows with heme oncology as outpatient Monitor CBC No bleeding issues currently Thrombosis better today DVT Px: SCDs Re: Thrombocytopenia CODE STATUS Full code Disposition Home Total Time Total Time Spent Total Time Spent (In Minutes): 49 minutes Discharge Plan Discharge Items Patient Disposition: Home - Self-Care Reason For Visit: SYNCOPE, FEVER Discharge Diagnosis: Syncope Sinus bradycardia Respiratory syncytial virus infection Thrombocytopenia Activity: Per Instructions section Exercise/Sports: Wait until after follow-up appointment Non-emergency contact: Primary Care Provider and Oncologist Call non-emergency contact if: you have any medication questions, your symptoms worsen, your pain is concerning for you and you have a fever Follow-up/Referrals: Frederick Ortiz MD [Primary Care Provider] - (Date & Time 07/29/2022 4:00 PM Provider Nicole Mantilla PA-C Department [facility] ) Diet: Heart Healthy Addtl Attending Provider Instructions: Follow-up with your primary care physician Follow-up with your oncologist in 2 to 3 weeks as advised Consider getting with your aoc director intelligence officer Dr. Bradley if you any recurrence of syncopal episodes --Get Blood Test(complete blood count) in 2 weeks and follow-up with your oncologist for monitoring your platelet count. --Get ZIO monitorarranged as outpatient to rule out arrhythmias as you are being noted to have low heart rate during your hospital stay. Your family doctor can help arrange. Seek immediate medical attention if your symptoms reoccur or worsen Please take all medications as instructed on discharge list below. Please call if you have any questions or problems. You can reach a [facility] hospitalist on duty at [facility] 24 hours a day by calling [phone] Pending Studies at Discharge: Yes Studies:: Blood culture Stand-Alone Forms: My [facility], Smoking Cessation Medications and DC Order Prescriptions: Continued amoxicillin-pot clavulanate 875-125 mg tablet 1 tab PO BID Rx Instructions: STARTED 07/19/22 FOR 10 DAYS. atorvastatin 20 mg tablet 20 mg PO QPM amlodipine 5 mg tablet 5 mg PO QPM aspirin 81 mg Tablet,Delayed Release (Dr/Ec) 81 mg PO QPM garlic 1,000 mg Capsule 1,000 mg PO QPM calcium carbonate-vitamin D3 [Calcium 600 + D(3)] 600 mg(1,500mg) -400 unit Tablet 1 tab PO QPM omega 6-gos-osq-fish oil [Fish Oil] 1,000 mg (120 mg-180 mg) Capsule 1 cap PO QPM tamsulosin 0.4 mg Capsule 0.4 mg PO QPM Discharge Orders: Discharge Order (Routine); Ordered 07/22/22 Ordered By: Prem Chiu Admission Data Admit Date/Time: 07/21/22 07:50 Attending Provider: Prem Chiu Admit Provider: Emmanuel Conklin Primary Care Provider: Frederick Ortiz Other Providers: Emmanuel Conklin ; David Land ; Alessandro Love ; Kyle Porras ; Venancio Ye ; Wagner Bradley ; Pavel Pascual ; Cherrie Cope ; Alva Kulkarni ; Rocio Lockett ; Jose Eduardo Kay Other Interventions: Discharge Summary Assessment (RN) Last Done: 07/22/22 10:55
--- NOTE | 2022-07-23 06:10 | Electrocardiogram Report ---
Test Reason : Blood Pressure : / mmHG Vent. Rate : 048 BPM Atrial Rate : 048 BPM P-R Int : 188 ms QRS Dur : 088 ms QT Int : 436 ms P-R-T Axes : 062 009 037 degrees QTc Int : 389 ms Sinus bradycardia T wave abnormality, consider anterolateral ischemia Abnormal ECG When compared with ECG of 20-JUL-2022 00:22, T wave inversion less evident in Anterior leads Confirmed by Nahum Douglas ([id number]) on 07/23/2022 6:10:19 AM Referred By: REFERRED SELF Confirmed By:Nahum Douglas
--- NOTE | 2022-07-23 06:54 | Electrocardiogram Report ---
Test Reason : Blood Pressure : / mmHG Vent. Rate : 063 BPM Atrial Rate : 063 BPM P-R Int : 186 ms QRS Dur : 096 ms QT Int : 440 ms P-R-T Axes : 062 047 039 degrees QTc Int : 450 ms Normal sinus rhythm with sinus arrhythmia Nonspecific T wave abnormality Abnormal ECG When compared with ECG of 21-JUL-2022 06:14, Nonspecific T wave abnormality has replaced inverted T waves in Anterior leads QT has lengthened Confirmed by Nahum Douglas ([id number]) on 07/23/2022 6:54:18 AM Referred By: REFERRED SELF Confirmed By:Nahum Douglas
== END 2022-07-22 13:40 | disposition home or self-care (01) | DRG 866 ==
LOC: ED 21:49 → EDINP 21:49 → 2S 07-20 02:46

== ENCOUNTER 2023-11-26 12:35 | Inpatient (IN) ==
--- OUTSIDE RECORDS SUMMARY | 2023-11-26 12:42 | External Medical Summary | Summary of Care ---
Author Name Unknown Organization [facility] Address [address] [facility] [place] [address] Phone [phone] Care Team Providers Care Food Service Helper Name Role Phone Diana HANSEN MD, Frederick Swan Primary Care Provider [phone] Encounter Details Date Type Department Care Team (Late st Contact Info) Description 11/10/2023 Result Scan Unspecified Department <No scans attached> Allergies No known active allergiesdocumented as of this encounter (statuses as of 11/14/2023) Medications Medication Sig Dispensed Refills Start Date End Date Status Aspirin 81 MG Tablet Take 1 Tablet by mouth in the morning. 0 Active Atorvastatin Calcium 20 MG Oral Tablet (Lipitor)Indications: Chronic ischemic heart disease,ASCVD (arteriosclerotic cardiovascular disease) TAKE ONE TABLET BY MOUTH IN THE MORNING 90 Tablet 3 04/03/2023 04/02/2024 Active amLODIPine Besylate 5 MG Oral Tablet (Norvasc) TAKE 1 TABLET BY MOUTH ONCE DAILY 90 Tablet 3 04/03/2023 04/02/2024 Active Tamsulosin HCl 0.4 MG Oral Capsule (Flomax) TAKE ONE CAPSULE BY MOUTH IN THE MORNING 90 Capsule 3 04/04/2023 04/03/2024 Active Eucerin External Cream Apply topically to affected area daily. To affected area of skin. 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 Thrombocytopenia 07/29/2022 Medical home patient encounter 07/26/2022 Gastro-esophageal reflux disease without esophag itis 01/08/2021 Dyslipidemia 11/23/2018 History of nonmelanoma skin cancer 01/09/2018 HTN, goal below 140/90 05/11/2017 Dyslipidemia, goal LDL below 70 09/08/2014 MDS (myelodysplastic syndrome) 09/08/2014 ACEI/ARB contraindicated 09/11/2013 ATHEROSCLEROTIC CORONARY DISEASE 10/09/2002 documented as of this encounter (statuses as of 11/14/2023) Resolved Problems Problem Noted Date Diagnosed Date Resolved Date Cholelithiasis 07/29/2022 08/10/2022 Anemia 07/07/2014 09/08/2014 Thrombocytopenia 07/07/2014 09/08/2014 Aspergillus pneumonia 07/06/20142014 Overview: Suspected, formal bronch not done Drug-induced neutropenia 07/01/201403/2015 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 ECOG E2906 Clinical Trial [id number] 06/24/2014 06/25/2014 Overview: In consideration Urticaria, acute 09/16/2013 09/08/2014 Overview: began 09/11/13 Rash and nonspecific skin eruption 09/16/2013 09/08/2014 Angioedema 09/11/2013 09/08/2014 EXERTIONAL CHEST PAIN 10/09/20022014 CHR ISCHEMIC HRT DIS NOS 07/02/200206/2017 documented as of this encounter (statuses as of 11/14/2023) Immunizations Name Administration Dates Next Due COVID-19 mRNA, LNP-s, No Pre serve, 2-Dose Series ([employer]) 07/16/2021,11/17/2020,10/26/2020 Pneumococcal Conjugate Vacc, 13 Valent (Prevnar) 09/24/2014 Pneumococcal Polysaccharide PPV23 (Pneumovax) 07/20/2022,06/22/2010 RSV Vac., Bivalent, Perfusio n F, Pf,0.5 Ml (Abrysvo) 06/08/2023 Seasonal Influenza, PF, 6 M & above, IM , (FluLaval or Fluzone) 05/15/2018,05/11/2017 Seasonal Influenza, Quadriva lent Hd (Fluzone Hd) 06/06/2023,04/22/2022,05/27/2021 Seasonal Influenza, Quadriva lent, No Preserve, IM 07/19/2016 Seasonal Influenza, Split, I IV3, With Preserve, Inj 09/24/2014,05/20/2013,06/22/2010 Seasonal Influenza, Trivalen t, Adjuvanted, 65+ yrs 05/28/2019 TDAP (age 10 and older)(Boostrix) 01/03/2012 Varicella Zoster Vaccine (Adult) 05/20/2013 Zoster Vaccine Recombinant (Shingrix) 01/06/2022 ,01/26/2021 documented as of this encounter Social History Tobacco Use Types Packs/Day Years Used Date Smoking Tobacco: Never Smokeless Tobacco: Never Comments:no passive smoke Alcohol Use Standard Drinks/Week Comments No 0 (1 standard drink = 0.6 oz pur e alcohol) PHQ-2 Answer Date Recorded PHQ Adult Total Score 0 01/09/2023 Hunger Vital Sign Answer Date Recorded Within the past 12 months, y ou worried that your food would run out before you got the money to buy more. Never true 01/10/20 23 Within the past 12 months, t he food you bought just didn't last and you didn't have money to get more. Never true 01/09/2023 Sex and Gender Information Value Date Recorded Sex Assigned at Male 02/26/2020 12:19 PM EDT Gender Identity Male 02/26/2020 12:19 PM EDT Sexual Orientation Straight 01/06/2022 8: 52 AM EDT Job Start Date Occupation Industry Not on file Not on file Not on file documented as of this encounter Functional Status Functional Status Response Date of Assess ment Are you deaf or do you have serious difficulty h earing? Yes 06/23/2014 Are you blind or do you have serious difficulty seeing, even when wearing glasses? Yes 06/23/2014 Do you have serious difficul ty walking or climbing stairs? (5 years old or older) No 06/23/2014 Do you have difficulty dress ing or bathing? (5 years old or older) No 06/23/2014 Because of a physical, menta l, or emotional condition, do you have difficulty doing errands alone such as visiting a doctor s office or shopping? (15 years old or older) No 06/23/20 14 Cognitive Status Response Date of Assessm ent Because of a physical, menta l, or emotional condition, do you have serious difficulty concentrating, remembering, or making decisions? (5 years old or older) No 06/23/2014 documented as of this encounter Plan of Treatment Upcoming Encounters Date Type Department Care Team (Late st Contact Info) Description 12/06/2023 8:00 AM EDT Office Visit Family Practice [address] [place] [address] Frederick Ortiz III, MD [address] [place] [address] [place] [address] 01/12/2024 8:00 AM EDT Nurse Only Ancillary [facility] [address] [place] [address] [place], Nurse Annual Wellness [address] [place] [address] 01/24/2024 4:00 PM EDT Office Visit Hematology/Oncology [facility] [address] [place] [phone] Tremayne Veronica MD [address] [place] [address] [place] [address] Health Maintenance Due Date Last Done Comments DTaP,Tdap,and Td Vaccines (2 - Td or Tdap) 01/02/2022 01/03/2012 COVID-19 Vaccine ( - 2022- season) 2023 07/16/2021, 11/17/2020, 10/26/2020 Depression Screening 01/10/2024 01/09/2023 GFR 07/25/2024 07/25/2023, 12/30, 07/12/2022, Additional history exists Albumin/Creatinine Ratio 01/06/2025 01/06/2022 Zoster Vaccines Completed 01/06/2022, 12/30, 05/20/2013 Pneumococcal Vaccine: 65+ Years Completed 07/20/2022, 09/24/2014, 06/22/2010 Influenza Vaccine (FLU shot) Completed 01/2023, 04/22/2022, 05/27/2021, Additional history exists GARDASIL-HPV IMMUNIZATION SERIES Aged Out No longer eligible based on patient's age to complete this topic Hepatitis B Aged Out No longer eligi ble based on patient's age to complete this topic MENINGOCOCCAL (MENACTRA/MENVEO) Aged Out No longer eligible based on patient's age to complete this topic documented as of this encounter Medical Devices Not on filedocumented as of this encounter Procedures Procedure Name Priority Date/Time Associated Diagnosis Comments OUTSIDE LAB RESULTS 11/10/2023 documented in this encounter Results * OUTSIDE LAB RESULTS (11/10/2023) 11/10/2023 No Physician Data Unknown LABORATORY documented in this encounter Advance Directives Latest Code Status on File Code Status Date Activated Date Inactivated Comments Full Code 06/23/2014 10:10 PM 07/07/2014 8:21 PM Thi s order reflects the patients wishes and were consensually agreed upon. Question Answer Comments Discussion of Advance Directives occurred with: Patient Does the patient have a Living Will? No Does the patient have Health Care Power of Fuel Truck Driver? No Care Teams Food Service Helper Relationship Specialty Start Date End Date Frederick Ortiz III, MD [address] [place] [address] PCP - General Family Medicine 05/20/13 documented as of this encounter
--- OUTSIDE RECORDS SUMMARY | 2023-11-26 12:42 | External Medical Summary | Summary of Care ---
Author Name Unknown Organization [facility] Address [address] [facility] [place] [address] Phone [phone] Care Team Providers Care Surgical Asst Name Role Phone Diana HANSEN MD, Frederick Swan Primary Care Provider [phone] Reason for Visit * Reason Onset Date Comments Test Results 09/22/2023 Encounter Details Date Type Department Care Team (Late st Contact Info) Description 09/22/2023 Telephone Cardiology, [facility] [address] [place] [address] Cherrie Cope PA-C [address] [place] [address] Test Results Allergies No known active allergiesdocumented as of this encounter (statuses as of 09/22/2023) Medications Medication Sig Dispensed Refills Start Date [...] of skin. 240 g 11 06/06/2023 Active Amoxicillin-Pot Clavulanate 875-125 MG Oral Tablet (Augmentin) Take 1 Tablet by mouth in the morning and 1 Tablet before bedtime for 10 days. 20 Tablet 0 09/20/2023 09/30/2023 Active predniSONE 20 MG Oral Tablet (Deltasone) Take 2 Tablets by mouth in the morning for 5 days. 10 Tablet 0 09/20/2023 09/25/2023 Active Benzonatate 100 MG Oral Capsule Take 1 Capsule by mouth 3 times a day as needed for Cough for up to 7 days. 21 Capsule 0 09/20/2023 09/27/2023 Active documented as of this encounter (statuses as of 09/22/2023) Active Problems Problem Noted Date Diagnosed Date Nonrheumatic aortic valve stenosis 03/21/2023 Bradycardia, sinus 09/21/2022 Essential (primary) hypertension 08/10/2022 Hereditary hemochromatosis 08/10/2022 Coronary artery disease invo lving [place] coronary artery of [place] heart without angina pectoris 07/29/2022 Osteoarthritis of shoulder 07/29/2022 Thrombocytopenia 07/29/2022 Medical home patient encounter 07/26/2022 Gastro-esophageal reflux disease without esophag itis 01/08/2021 Dyslipidemia 11/23/2018 History of nonmelanoma skin cancer 01/09/2018 HTN, goal below 140/90 05/11/2017 Dyslipidemia, goal LDL below 70 09/08/2014 MDS (myelodysplastic syndrome) 09/08/2014 ACEI/ARB contraindicated 09/11/2013 ATHEROSCLEROTIC CORONARY DISEASE 10/09/2002 documented as of this encounter (statuses as of 09/22/2023) Resolved Problems Problem Noted Date Diagnosed Date Resolved Date Cholelithiasis 07/29/2022 08/10/2022 Anemia 07/07/2014 09/08/2014 Thrombocytopenia 07/07/2014 09/08/2014 Aspergillus pneumonia 07/06/20142014 Overview: Suspected, formal bronch not done Drug-induced neutropenia 07/01/201403/2015 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 ECOG E2906 Clinical Trial [id number] 06/24/2014 06/25/2014 Overview: In consideration Urticaria, acute 09/16/2013 09/08/2014 Overview: began 09/11/13 Rash and nonspecific skin eruption 09/16/2013 09/08/2014 Angioedema 09/11/2013 09/08/2014 EXERTIONAL CHEST PAIN 10/09/20022014 CHR ISCHEMIC HRT DIS NOS 07/02/200206/2017 documented as of this encounter (statuses as of 09/22/2023) Immunizations Name Administration Dates Next Due COVID-19 mRNA, LNP-s, No Pre serve, 2-Dose Series ([employer] 07/16/2021,11/17/2020,10/26/2020 Pneumococcal Conjugate Vacc, 13 Valent (Prevnar) [...] No 06/23/2014 documented as of this encounter Miscellaneous Notes * Telephone Encounter - Rosa Elena Quintero CMA - 09/22/2023 3:59 PM EST Letter mailed. * Telephone Encounter - Rosa Elena Quintero CMA - 09/22/2023 3:58 PM EST ----- Message from Cherrie Cope PA-C sent at 09/22/2023 3:32 PM EST ----- Echo results reviewed. Normal LV systolic function with EF 60-64% (normal). The aortic valve is moderately calcified. Mild aortic valve stenosis is present. The aortic root and proximal ascending aorta are mildly enlarged at 3.9 and 4.0 cm respectively Compared to prior study of September 13, 2022, there is no significant change. No concerning findings. Keep follow up as scheduled September 2023 documented in this encounter Plan of Treatment Upcoming Encounters Date Type Department Care Team (Late st Contact Info) Description 10/18/2023 3:30 PM EDT Office Visit Cardiology, [facility] [address] [place] [address] Cherrie Cope PA-C [address] [place] [address] 12/06/2023 8:00 AM EDT Office Visit Family Practice [facility] [address] [facility] [place] [address] Frederick Ortiz III, MD [address] [place] [address] [place] [address] 01/12/2024 8:00 AM EDT Nurse Only Ancillary [facility] [address] [facility] [place] [address] [place], Nurse Annual Wellness [address] [place] [address] 01/24/2024 4:00 PM EDT Office Visit Hematology/Oncology [facility] [place] [address] [facility] [place] [phone] Tremayne Veronica MD [address] [place] [address] [place] [address] Health Maintenance Due Date Last Done Comments DTaP,Tdap,and Td Vaccines (2 - Td or Tdap) 01/02/2022 01/03/2012 COVID-19 Vaccine ( - 2023-24 season) 2023 07/16/2021, 11/17/2020, 10/26/2020 Depression Screening [...] Not on filedocumented as of this encounter Advance Directives Latest Code Status on File Code Status Date Activated Date Inactivated Comments Full Code 06/23/2014 10:10 PM 07/07/2014 8:21 PM Thi s order reflects the patients wishes and were consensually agreed upon. Question Answer Comments Discussion of Advance Directives occurred with: Patient Does the patient have a Living Will? No Does the patient have Health Care Power of Sample Shoe Inspector And Reworker? No Care Teams Surgical Asst Relationship Specialty Start Date End Date Frederick Ortiz III, MD [address] [place] [address] PCP - General Family Medicine 05/20/13 documented as of this encounter
--- OUTSIDE RECORDS SUMMARY | 2023-11-26 12:43 | External Medical Summary | Summary of Care ---
Author Name Unknown Organization [facility] Address [address] [facility] [place] [id number] Phone [phone] Care Team Providers Care Emergency Department Name Role Phone Diana HANSEN MD, Frederick Swan Primary Care Provider [phone] Reason for Visit * Reason Comments Follow Up Encounter Details Date Type Department Care Team (Latest Contact Info) Description 07/25/2023 2:30 PM EST Office Visit Hematology/Oncology [facility] [place] [address] [facility] [place] [address] Tremayne Veronica MD [address] [facility] [place] [address] Thrombocytopenia (HCC)*; MDS (myelodysplastic syndrome) (HCC); Elevated ferritin Allergies No known active allergiesdocumented as of this encounter (statuses as of 07/25/2023) Medications Medication Sig Dispensed Refills Start Date [...] as of this encounter (statuses as of 07/25/2023) Active Problems Problem Noted Date Diagnosed Date Nonrheumatic aortic valve stenosis 03/21/2023 Bradycardia, sinus 09/21/2022 Essential (primary) hypertension 08/10/2022 Hereditary hemochromatosis 08/10/2022 Coronary artery disease invo [place]ving [place] coronary artery of [place] heart without angina pectoris 07/29/2022 Osteoarthritis of shoulder 07/29/2022 Thrombocytopenia 07/29/2022 Medical home patient encounter 07/26/2022 Gastro-esophageal reflux disease without esophag itis 01/08/2021 Dyslipidemia 11/23/2018 History of nonmelanoma skin cancer 01/09/2018 HTN, goal below 140/90 05/11/2017 Dyslipidemia, goal LDL below 70 09/08/2014 MDS (myelodysplastic syndrome) 09/08/2014 ACEI/ARB contraindicated 09/11/2013 ATHEROSCLEROTIC CORONARY DISEASE 10/09/2002 documented as of this encounter (statuses as of 07/25/2023) Resolved Problems Problem Noted Date Diagnosed Date Resolved Date Cholelithiasis 07/29/2022 08/10/2022 Anemia 07/07/2014 09/08/2014 Thrombocytopenia 07/07/2014 09/08/2014 Aspergillus pneumonia 07/06/20142014 Overview: Suspected, formal bronch not done Drug-induced neutropenia 07/01/201403/2015 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 ECOG E2906 Clinical Trial [id number] 06/24/2014 06/25/2014 Overview: In consideration Urticaria, acute 09/16/2013 09/08/2014 Overview: began 09/11/13 Rash and nonspecific skin eruption 09/16/2013 09/08/2014 Angioedema 09/11/2013 09/08/2014 EXERTIONAL CHEST PAIN 10/09/20022014 CHR ISCHEMIC HRT DIS NOS 07/02/200206/2017 documented as of this encounter (statuses as of 07/25/2023) Immunizations Name Administration Dates Next Due COVID-19 mRNA, LNP-s, No Pre serve, 2-Dose Series (Pfizer) 07/16/2021,11/17/2020,10/26/2020 Pneumococcal Conjugate Vacc, 13 Valent (Prevnar) [...] Date Smoking Tobacco: Never Smokeless Tobacco: Never Tobacco Cessation:Counseling Given: Not Answered Comments:no passive smoke Alcohol Use Standard Drinks/Week [...] on file documented as of this encounter Last Filed Vital Signs Vital Sign Reading Time Taken Comments Blood Pressure 142/65 07/25/2023 2:31 PM EST Pulse 57 07/25/2023 2:31 PM EST Temperature - - Respiratory Rate - - Oxygen Saturation 96% 07/25/2023 2:31 PM EST Inhaled Oxygen Concentration - - Weight 86.5 kg (190 lb 9.6 oz) 07/25/2023 2:31 P M EST Height - - Body Mass Index 26.6 01/09/2023 8:49 AM EDT documented in this encounter Functional Status Functional Status Response [...] No 06/23/2014 documented as of this encounter Progress Notes * Tremayne Veronica MD - 07/25/2023 2:37 PM EST Outpatient Consult Note Data Source: Patient, [facility] record. Data Source: Patient, Epic record. 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 Patient was recently admitted to the hospital and discharged on 01/05/2021 with complaint of abdominal pain. He had cholangiopancreatography MRI on 01/01/2021 and shows dilatation of the gallbladder which could be consistent with cholecystitis. He underwent cholecystectomy and pathology was consistent with acute and chronic cholecystitis with cholelithiasis. On 05/2014 he was admitted to [facility] with generalized weakness and was found to have a pancytopenia. Bone marrow biopsy showed aplasia along with the presence of a T-Cell clone, it was sent to the [facility] and was felt to be consistent with T-Cell Large Granular Lymphocytic Leukemia. He was treated with high-dose Cyclophosphamide/Dex and achieved a good AR. 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 Comment: This bone marrow is virtually aplastic. The etiology is uncertain. There is an increase inT cell granular lymphocytes both in the peripheral blood and in the marrow. Whether this is a clonal process or a reactive process is difficult to tell. Flow cytometric analysis of bone marrow reveals mostly CD8 positive T cells with an aberrant phenotypic, suggestive of T-large granular lymphocytosis. MDS Panel: Results: ABNORMAL, positive for deletion 7q31. Interpretation: Fluorescence in situ hybridization (FISH) analysis was performed using a myelodysplastic syndrome specific set of FISH probes. A deletion in the long arm of chromosome 7 (i.e., 7q-) with a signal pattern of 1R2G was observed in 5.2% of the interphase nuclei analyzed. The normal reference range cut-off for the 7q- (1R2G) is < 2.7%, therefore this FISH probe analysis is scored as ABNORMAL. All other FISH probe signals analyzed were within the normal reference range. 7q- is a common abnormalityseen in MDS patients, as a de wendy or secondary alteration. Isolated 7q- is associated with a relatively unfavorable prognosis. Cytogenetics: Karyotype: 46,XY[20] Interpretation: NORMAL MALE KARYOTYPE Since receiving chemotherapy overall his blood counts are stable. Recent CBC was done during the admission on 01/07/2021 and shows WBC count of 4.8 hemoglobin 12.9 and platelet count 108. Differential were in acceptable range. He had MRI of the kidney done on 01/16/2021 and shows bilateral subcentimeter hemorrhagic cysts renal cyst with no suspicious lesions. There was iron deposition in the liver and spleen. On 01/26/2021 his ferritin level was 821 with normal iron screen including iron, iron-binding capacity and transferrin saturation. Total bilirubin was 1.3 and the rest of the LFTs were within normal limit and creatinine was 1.2. 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 He denies any headache, dizziness, blurred vision, chest pain, palpitation, nausea,vomiting, fever, night sweats. He denies smoking or drinking. Family history significant for mother was diagnosed of kidney cancer. Father was diagnosed of throat cancer. Interval History: Overall he is stable without any new symptoms complain. Denies any headache, dizziness, blurred vision, chest pain, palpitation abdominal pain or distention, nausea, vomiting, fever, night sweats, bleeding, bruising. LABS/IMAGING: Results for orders placed or performed in visit on 01/18/23 COMPREHENSIVE METABOLIC PANEL Result Value Ref Range BUN 22 (H) 6 - 20 mg/dL Creatinine 1.1 0.6 - 1.2 mg/dL Estimated Glomerular Filtration Rate 67 >=60 mL/min Sodium 140 135 - 146 mmol/L Potassium 4.1 3.5 - 5.1 mmol/L Chloride 105 98 - 107 mmol/L CO2 27 22 - 32 mmol/L Anion Gap 8 7 - 15 mmol/L Glucose 91 70 - 120 mg/dL Albumin 4.5 3.8 - 5.0 g/dL AST 20 10 - 50 U/L Alkaline Phosphatase 97 35 - 130 U/L Bilirubin, Total 0.8 <=1.2 mg/dL Calcium 9.2 8.4 - 10.2 mg/dL Protein 6.5 6.0 - 8.3 g/dL ALT 15 10 - 50 U/L LD Result Value Ref Range LD 172 <=250 U/L FERRITIN Result Value Ref Range Ferritin 470 (H) 30 - 400 ng/mL RETICULOCYTE PANEL Result Value Ref Range Reticulocyte Percent 0.99 0.80 - 1.90 % Absolute Reticulocyte 41.1 31.3 - 100.1 K/uL Immature Reticuloctye Fraction 7.9 2.5 - 20.6 % Reticulocyte Hemoglobin 35.8 29.7 - 37.4 pg IRON SCREEN, INCLUDING TIBC Result Value Ref Range Iron 44 (L) 45 - 176 ug/dL Iron Binding Capacity 243 (L) 250 - 425 ug/dL Transferrin Saturation Percent 18 15 - 55 % CBC Result Value Ref Range WBC 5.83 4.00 - 10.80 K/uL RBC 4.15 4.50 - 5.25 M/uL HGB 12.9 (L) 14.0 - 16.8 g/dL HCT 39.6 (L) 40.0 - 48.4 % MCV 95.4 82.0 - 99.5 fL MCH 31.1 27.0 - 34.0 pg MCHC 32.6 32.0 - 36.0 g/dL RDW 13.9 11.5 - 15.5 % PLT 99 (L) 140 - 400 K/uL MPV 11.1 6.6 - 11.1 fL nRBCs 0 <=0 /100 WBCs DIFFERENTIAL, AUTOMATED Result Value Ref Range WBC 5.83 4.00 - 10.80 K/uL Neutrophils % 62.0 40.0 - 75.0 % Lymphocytes % 21.8 18.0 - 42.0 % Monocytes % 12.2 (H) 1.0 - 11.0 % Eosinophils % 3.1 0.0 - 6.0 % Basophils % 0.7 0.0 - 2.0 % Immature Granulocytes % 0.2 0.0 - 2.0 % Absolute Neutrophils 3.62 1.80 - 7.70 K/uL Absolute Lymphocytes 1.27 1.00 - 4.80 K/ul Absolute Monocytes 0.71 0.00 - 1.10 K/uL Absolute Eosinophils 0.18 0.00 - 0.70 K/uL Absolute Basophils 0.04 0.00 - 0.20 K/uL Absolute Immature Granulocytes 0.01 0.00 - 0.20 K/uL DIFFERENTIAL, TECHNOLOGIST REVIEW Result Value Ref Range Renae Cells Moderate (A) None Seen Ovalocytes Moderate (A) None Seen Last blood test were done on 01/18/2023 and all were in acceptable range. REVIEW OF SYSTEMS: General: No Fever, chills, night sweats, or weight loss. HEENT: No change in visual acuity, blurred or double vision. No epistaxis, facial pain, nasal discharge or change in hearing. Denies dysphagia, no muscosal ulceration, or sores noted. Cardiovascular: No chest pain, GALLEGOS, or palpitations Respiratory: No shortness of breath, cough, hemoptysis, or pleuritic chest pain Gastrointestinal: No abdominal pain, nausea, vomiting, diarrhea, rectal pain or bleeding Genitourinary: Denies Hematuria or dysuria Musculoskeletal: No bone pain Psychiatric: No vegetative signs of depression Endocrine: No symptoms of hypothyroidism or hyperglycemia Hematologic: No bleeding or lymph nodes noted As mentioned above, all of the systems were reviewed in full and are unremarkable. 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 Atorvastatin Calcium 20 MG Oral Tablet (Lipitor) TAKE ONE TABLET BY MOUTH IN THE MORNING 90 Tablet 3 amLODIPine Besylate 5 MG Oral Tablet (Norvasc) TAKE 1 TABLET BY MOUTH ONCE DAILY 90 Tablet 3 Tamsulosin HCl 0.4 MG Oral Capsule (Flomax) TAKE ONE CAPSULE BY MOUTH IN THE MORNING 90 Capsule 3 Eucerin External Cream Apply topically to affected area daily. To affected area of skin. 240 g 11 Abrysvo 120 MCG/0.5ML Intramuscular Solution Reconstituted (RSV Pre-Fusion F A&B Vac Rcmb) inject as directed 1 Each 0 No current facility-administered medications for this visit. Social History Tobacco Use Smoking status: Never Smokeless tobacco: Never Tobacco comments: no passive smoke Vaping Use Vaping Use: Never used Substance Use Topics Alcohol use: No Drug use: No Review of patient's allergies indicates: No Known Allergies PHYSICAL EXAMINATION: General Appearance: Healthy appearing patient in no acute distress BP 142/65 (BP Site: Left Arm, BP Position: Sitting, BP Cuff Size: Pediatric) | Pulse 57 | Wt 86.5 kg (190 lb 9.6 oz) | SpO2 96% | BMI 26.60 kg/m | BSA 2.08 m Vitals reviewed. HEENT: No oral or pharyngeal masses, ulceration or thrush noted, no sinus tenderness. Neck is supple with no thyromegaly or JVD noted. Lymph Nodes: No lymphadenopathy noted in the occipital, pre and post auricular, cervical, supra andinfraclavicular, axillary, epitrochlear, inguinal, and popliteal region. Lungs/Thorax: Clear to auscultation, no accessory muscles of respiration being used. Heart: Regular rate and rhythm, normal S1, S2 Abdomen: Soft, nontender, bowel sounds present, no appreciable hepatosplenomegaly, no palpable masses Extremeties: Good pulses bilaterally, mild ankle edema ASSESSMENT: 82-year-old male with past medical history significant for coronary artery disease, hypertension, hyperlipidemia and history of MDS/large granular T-cell lymphocytic leukemia was referred for furthermanagement. Patient presented in 05/2014 with pancytopenia and WBC count was 1.78 hemoglobin 6.2 and platelet count less than 5000. On 06/27/2014 he was treated with single dose of Cytoxan 4000 mg with subsequent improvement in the blood counts. He had bone marrow biopsy done and there was a question about myelodysplastic syndrome verses a large granular lymphocytic leukemia. MDS panel was positive for 7q del etion on the bone marrow. Since receiving chemotherapy in 2013, his blood counts are stable with normal WBC count, hemoglobin and low platelet counts which are stable. He also has elevated ferritin level and recent MRI shows iron deposit in the liver and spleen. Ferritin was high and Iron screen including iron, iron-binding capacity and transferrin saturation all within normal limit. Overall clinically he is stable. Physical examination is unremarkable. Discussed with the patient about diagnosis and reviewed all the available blood test result with him. PLAN: CBC, CMP, ferritin iron screen will be done today. He will return clinic for follow-up in 6 months with same blood test. The patient voiced understanding of all of the above. All questions and concerns were addressed in an apparently satisfactory manner. Tremayne Veronica MD (This note was completed using the dictation program Fluency Direct. As such, there may be misspellings, word substitutions, or other variations that should not change the essence of the clinical content of this encounter note. If there is need for further clarification, please direct questions to me.) documented in this encounter Nursing Notes * Juan Porras MED ASSIST - 07/25/2023 2:34 PM EST Patient identified by name and date of . Do you have any concerns about pain management for today's visit? No Living Will or Advance Directive for Health Care as noted on problem list. My [facility] is a way you can talk to your provider online through e-mail. Would you like to sign up? I can activate it for you? DECLINES BP 142/65 (BP Site: Left Arm, BP Position: Sitting, BP Cuff Size: Pediatric) | Pulse 57 | Wt 86.5 kg (190 lb 9.6 oz) | SpO2 96% | BMI 26.60 kg/m | BSA 2.08 m Patient was instructed to not get up on the exam table/exam chair until directed and assisted by their provider; patient is to remain seated in the chair/ wheelchair/ exam table/ exam chair for fall prevention and safety reasons. Patient is aware to have assistance to step down off exam table/exam chair with personnel. Patient voiced full comprehension of instructions. Patient states he has redness and swelling in feet. He also stated he has had a head cold/chest cold for a while. documented in this encounter Plan of Treatment Upcoming Encounters Date Type Department Care Team (Late st Contact Info) Description 09/21/2023 7:15 AM EST Cardiac Studies Cardiac Studies, [facility] [address] [place] [address] 10/02/2023 8:00 AM EST [facility] [place] [address] Cherrie Cope PA-C [address] [place] [address] 12/06/2023 8:00 AM EDT Office Visit Family Practice [facility] [address] [facility] [place] [address] Frederick Ortiz III, MD [address] [facility] [place] [address] 01/12/2024 8:00 AM EDT Nurse Only Ancillary [facility] [place] [address] [facility] [place] [address] [place], Nurse Annual Wellness [facility] [address] [facility] [place] [address] 01/24/2024 4:00 PM EDT Office Visit Hematology/Oncology [facility] [place] [address] [facility] [place] [address] Tremayne Veronica MD [address] [facility] [place] [address] Scheduled Orders Name Type Priority Associated Diagnoses Orde r Schedule CBC WITH WBC DIFFERENTIAL Lab Routine Thrombocytopenia (HCC) MDS (myelodysplastic syndrome) (HCC) Elevated ferritin Ordered: 07/25/2023 COMPREHENSIVE METABOLIC PANEL Lab Routine Thrombocytopenia (HCC) MDS (myelodysplastic syndrome) (HCC) Elevated ferritin Ordered: 07/25/2023 FERRITIN Lab Routine Thrombocytopenia (HCC) MDS (myelodysplastic syndrome) (HCC) Elevated ferritin Ordered: 07/25/2023 IRON SCREEN, INCLUDING TIBC Lab Routine Thrombocytopenia (HCC) MDS (myelodysplastic syndrome) (HCC) Elevated ferritin Ordered: 07/25/2023 CBC WITH WBC DIFFERENTIAL Lab Routine Thrombocytopenia (HCC) MDS (myelodysplastic syndrome) (HCC) Elevated ferritin Expected: 01/08/2024, Expires: 07/16/2024 COMPREHENSIVE METABOLIC PANEL Lab Routine Thrombocytopenia (HCC) MDS (myelodysplastic syndrome) (HCC) Elevated ferritin Expected: 01/08/2024, Expires: 07/16/2024 FERRITIN Lab Routine Thrombocytopenia (HCC) MDS (myelodysplastic syndrome) (HCC) Elevated ferritin Expected: 01/08/2024, Expires: 07/16/2024 IRON SCREEN, INCLUDING TIBC Lab Routine Thrombocytopenia (HCC) MDS (myelodysplastic syndrome) (HCC) Elevated ferritin Expected: 01/08/2024, Expires: 07/16/2024 Health Maintenance Due Date Last Done Comments DTaP,Tdap,and Td Vaccines (2 - Td or Tdap) 01/02/2022 01/03/2012 COVID-19 Vaccine ( season) 2023 07/16/2021, 11/17/2020, 10/26/2020 Depression Screening 01/10/2024 01/09/2023 GFR 01/19/2024 01/18/2023, 06/30, 09/27/2021, Additional history exists Albumin/Creatinine Ratio 01/06/2025 01/06/2022 [...] Not on filedocumented as of this encounter Visit Diagnoses Diagnosis Thrombocytopenia (HCC)- Primary Thrombocytopenia, unspecified MDS (myelodysplastic syndrome) (HCC) Myelodysplastic syndrome, unspecified Elevated ferritin Other abnormal blood chemistry documented in this encounter Advance Directives Latest [...] the patient have Health Care Power of Feather Drying Machine Operator? No Care Teams Emergency Department Relationship Specialty Start Date End Date Frederick Ortiz III, MD [address] [place] [address] PCP - General Family Medicine 05/20/13 documented as of this encounter"
--- OUTSIDE RECORDS SUMMARY | 2023-11-26 12:43 | External Medical Summary | Summary of Care ---
Author Name Unknown Organization [facility] Address [address] [facility] [place] [address] Phone [phone] Care Team Providers Care In Home Baby Sitter Name Role Phone Diana HANSEN MD, Frederick Swan Primary Care Provider [phone] Reason for Visit * Reason Comments Cold Symptoms Encounter Details Date Type Department Care Team (Latest Contact Info) Description 08/03/2023 10:40 AM [facility] Convenient Care Visit [facility] [address] [place] [address] Nicolette Busch PA-C [address] [place], [place] [id number] Acute sinusitis, recurrence not specified, unspecified location*; Acute cough Allergies No known active allergiesdocumented as of this encounter (statuses as of 08/03/2023) Medications Medication Sig Dispensed Refills Start Date [...] Active Amoxicillin-Pot Clavulanate 875-125 MG Oral Tablet (Augmentin)Indication s:Acute sinusitis, recurrence not specified, unspecified location,Acute cough Take 1 Tablet by mouth in the morning and 1 Tablet before bedtime. Do all this for 10 days. 20 Tablet 0 08/03/2023 08/13/2023 Active predniSONE 20 MG Oral Tablet (Deltasone)Indication s:Acute sinusitis, recurrence not specified, unspecified location,Acute cough Take 1 Tablet by mouth in the morning for 5 days. 5 Tablet 0 08/03/2023 08/08/2023 Active Benzonatate 100 MG Oral Capsule (Tessalon Perles)Indications:Ac [place] sinusitis, recurrence not specified, unspecified location,Acute cough Take 1 Capsule by mouth 3 times a day as needed for Cough. Do not cut, crush, or chew. 50 Capsule 1 08/03/2023 Active documented as of this encounter (statuses as of 08/03/2023) Active Problems Problem Noted Date Diagnosed Date Nonrheumatic aortic valve stenosis 03/21/2023 Bradycardia, sinus 09/21/2022 Essential (primary) hypertension 08/10/2022 Hereditary hemochromatosis 08/10/2022 Coronary artery disease invo lving wilton coronary artery of [place] heart without angina pectoris 07/29/2022 Osteoarthritis of shoulder 07/29/2022 Thrombocytopenia 07/29/2022 Medical home patient encounter 07/26/2022 Gastro-esophageal reflux disease without esophag itis 01/08/2021 Dyslipidemia 11/23/2018 History of nonmelanoma skin cancer 01/09/2018 HTN, goal below 140/90 05/11/2017 Dyslipidemia, goal LDL below 70 09/08/2014 MDS (myelodysplastic syndrome) 09/08/2014 ACEI/ARB contraindicated 09/11/2013 ATHEROSCLEROTIC CORONARY DISEASE 10/09/2002 documented as of this encounter (statuses as of 08/03/2023) Resolved Problems Problem Noted Date Diagnosed Date Resolved Date Cholelithiasis 07/29/2022 08/10/2022 Anemia 07/07/2014 09/08/2014 Thrombocytopenia 07/07/2014 09/08/2014 Aspergillus pneumonia 07/06/20142014 Overview: Suspected, formal bronch not done Drug-induced neutropenia 07/01/201403/2015 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 [facility] [place] [id number] 06/24/2014 06/25/2014 Overview: In consideration Urticaria, acute 09/16/2013 09/08/2014 Overview: began 09/11/13 Rash and nonspecific skin eruption 09/16/2013 09/08/2014 Angioedema 09/11/2013 09/08/2014 EXERTIONAL CHEST PAIN 10/09/20022014 CHR ISCHEMIC HRT DIS NOS 07/02/200206/2017 documented as of this encounter (statuses as of 08/03/2023) Immunizations Name Administration Dates Next Due COVID-19 [...] Sign Reading Time Taken Comments Blood Pressure 138/72 08/03/2023 4:28 PM EST Pulse 57 08/03/2023 4:28 PM EST Temperature 36.7 C (98.1 F) 08/03/2023 4:28 PM ES T Respiratory Rate 16 08/03/2023 4:28 PM EST Oxygen Saturation 97% 08/03/2023 4:28 PM EST Inhaled Oxygen Concentration - - Weight 90.7 kg (200 lb) 08/03/2023 4:28 PM EST Height - - Body Mass Index 27.91 01/09/2023 8:49 AM EDT documented in this [...] as of this encounter Progress Notes * Nicolette Busch PA-C - 08/03/2023 11:28 AM EST Subjective: Nursing Notes: Saida Devries, AVI 08/03/23 1631 Signed 82 yo male presents with cough x 2 weeks. Took mucinex Sx are cough and other cold symptoms x 2 weeks, ++ congestion and has to breath through mouth, mouth open all the time, cough is productive, mostly at night, coughing continues once started about 30-40 seconds and will have diff getting his breath Vicks helps a lot at night, There are sick contacts at home. Sig med hx/risk factors: MDS/large granular T-cell lymphocytic leukemia , HTN, CAD had flu shot this year. PMH: Patient Active Problem List Diagnosis Code ATHEROSCLEROTIC CORONARY DISEASE I25.10 ACEI/ARB contraindicated Z53.09 Dyslipidemia, goal LDL below 70 E78.5 MDS (myelodysplastic syndrome) (HCC) D46.9 HTN, goal below 140/90 I10 History of nonmelanoma skin cancer Z85.828 Dyslipidemia E78.5 Gastro-esophageal reflux disease without esophagitis K21.9 Medical home patient encounter Z00.8 Coronary artery disease involving wilton coronary artery of [place] heart without angina pectoris I25.10 Osteoarthritis of shoulder M19.019 Thrombocytopenia ([facility]) D69.6 Essential (primary) hypertension I10 Hereditary hemochromatosis ([facility]) E83.110 Bradycardia, sinus R00.1 Nonrheumatic aortic valve stenosis I35.0 Current Outpatient Medications Medication Sig Dispense Refill Amoxicillin-Pot Clavulanate 875-125 MG Oral Tablet (Augmentin) Take 1 Tablet by mouth in the morning and 1 Tablet before bedtime. Do all this for 10 days. 20 Tablet 0 predniSONE 20 MG Oral Tablet (Deltasone) Take 1 Tablet by mouth in the morning for 5 days. 5 Tablet0 Benzonatate 100 MG Oral Capsule (Tessalon Perles) Take 1 Capsule by mouth 3 times a day as needed for Cough. Do not cut, crush, or chew. 50 Capsule 1 Aspirin 81 MG Tablet Take 1 Tablet [...] No current facility-administered medications for this visit. 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 07/29/2022 Other chest pain 2002 Past Surgical History: Procedure Laterality Date CATARACT SURGERY,COMPLEX Bilateral 04/2022 COLORECTAL CANCER SCREEN; NOT AT RISK [id number] normal CT HEAD/BRAIN W WO CONTRAST 10/13/2004 mild to moderate atrophy LAPAROSCOPY; CHOLECYSTECTOMY REPAIR INITIAL INGUINAL HERNIA REDUCIBLE AGE 5 OR MORE 07/31/2002 right STRESS ECHO (EXERCISE) 04/19/2003 normal study Review of patient's allergies indicates: No Known Allergies Objective: BP 138/72 | Pulse 57 | Temp 36.7 C (98.1 F) (Tympanic) | Resp 16 | Wt 90.7 kg (200 lb) | SpO2 97% | BMI 27.91 kg/m | BSA 2.13 m Physical Exam Constitutional: Appearance: Normal appearance. He is normal weight. HENT: Head: Normocephalic. Right Ear: Ear canal and external ear normal. Left Ear: Ear canal and external ear normal. Nose: Congestion (very) and rhinorrhea present. Mouth/Throat: Pharynx: No oropharyngeal exudate or posterior oropharyngeal erythema. Eyes: Extraocular Movements: Extraocular movements intact. Conjunctiva/sclera: Conjunctivae normal. Cardiovascular: Rate and Rhythm: Normal rate and regular rhythm. Heart sounds: Normal heart sounds. Pulmonary: Effort: Pulmonary effort is normal. Breath sounds: Normal breath sounds. No wheezing or rhonchi. Comments: Wet cough noted but lungs are clear Musculoskeletal: General: Normal range of motion. Cervical back: Normal range of motion. No rigidity or tenderness. No muscular tenderness. Lymphadenopathy: Cervical: Cervical adenopathy present. Skin: Findings: No rash. Neurological: Mental Status: He is alert and oriented to person, place, and time. Psychiatric: Mood and Affect: Mood normal. Thought Content: Thought content normal. Judgment: Judgment normal. ASSESSMENT/PLAN: Acute sinusitis, recurrence not specified, unspecified location (Primary) - Amoxicillin-Pot Clavulanate 875-125 MG Oral Tablet (Augmentin); Take 1 Tablet by mouth in the morning and 1 Tablet before bedtime. Do all this for 10 days. - predniSONE 20 MG Oral Tablet (Deltasone); Take 1 Tablet by mouth in the morning for 5 days. - Benzonatate 100 MG Oral Capsule (Tessalon Perles); Take 1 Capsule by mouth 3 times a day as needed for Cough. Do not cut, crush, or chew. Acute cough - Amoxicillin-Pot Clavulanate 875-125 MG Oral Tablet (Augmentin); Take 1 Tablet by mouth in the morning and 1 Tablet before bedtime. Do all this for 10 days. - predniSONE 20 MG Oral Tablet (Deltasone); Take 1 Tablet by mouth in the morning for 5 days. - Benzonatate 100 MG Oral Capsule (Tessalon Perles); Take 1 Capsule by mouth 3 times a day as needed for Cough. Do not cut, crush, or chew. Return instruction reviewed with pt in detail. Reasons to report to the ED were also reviewed. Voiced understanding Advised to follow up if no improvement in 3-5days. Nicolette Busch PA-C documented in this encounter Nursing Notes * Saida Devries LPN - 08/03/2023 4:30 PM EST 82 yo male presents with cough x 2 weeks. Took mucinex documented in this encounter Miscellaneous Notes * Pt Handout (on AVS) - Nicolette Busch PA-C - 08/03/2023 4:44 PM EST Images from the original note were not included. [id number] Adult Self-Care for Colds Colds are caused by viruses, so they can't be treated with antibiotics don't work. There is no curefor the common cold, but you can ease symptoms and support your body's efforts to heal itself. No matter which symptoms you have, be sure to: Drink plenty of fluids (water or clear soup), and stay away from drinks with caffeine Don't smoke or drink alcohol Get plenty of rest Stay away from secondhand smoke Prevent the spread of cold viruses. Wash your hands with soap and clean, running water for at least 20 seconds. If soap and water aren't available, you can use an alcohol-based hand ruffler thatcontains at least 60% alcohol. Try not to touch your face with unwashed hands. Understand a fever Take your temperature several times a day. If your fever is 100.4 F ( 38C ) for more than 1 day, call your healthcare provider. Relax, lie down. Go to bed if you want. Just get off your feet and rest. Also drink plenty of fluids to prevent dehydration. Take acetaminophen or a nonsteroidal anti-inflammatory drug (NSAID) such as ibuprofen. Treating a stuffy nose Breathe steam or heated humidified air to open blocked nasal passages. combination building inspector a hot shower or use a vaporizer. Be careful not to get burned by the steam. Saline nasal sprays and decongestant tablets or nasal sprays help open a stuffy nose. Antihistamines may also help. But be cautious of the side effects. These include drowsiness and drying of the eyes, nose, and mouth. Soothe a sore throat and cough Gargle every 2 hours with 1/4 teaspoon of salt dissolved in 1/2 cup of warm water. Suck on throat lozenges and cough drops to moisten your throat. Cough medicines are available. But it's not clear how well they work. Take acetaminophen or an NSAID, such as ibuprofen, to ease throat pain. Follow package directions on how much to use and how often to take the medicine. Ease digestive problems Put fluids back into your body. Take frequent sips of clear liquids such as water or broth. [place] from drinks that have a lot of sugar in them. These include juices and sodas. These can make diarrhea worse. Older children and adults can drink sports drinks. As your appetite returns, you can go back to your normal diet. Ask your healthcare provider if there are any foods you shouldn't have. When to call your healthcare provider When you first notice symptoms, ask your provider if you should take antiviral medicines. Antibiotics shouldn't be taken for colds or flu. Also call your provider if you have any of these symptoms: You don't feel better after 7 days Belly pain or vomiting Symptoms get worse, especially after a period of improvement Fever of 100.4 F ( 38C) or higher, or fever that doesn't go down with medicine, or as advised by your healthcare provider Dizziness or weakness Slight shortness of breath or wheezing Spotted, red, or very sore throat Signs of dehydration: o Extreme thirst o Dark urine o Not peeing often o Dry mouth When to call 911 Call 911 right away if any of these occur: Chest pain Coughing up blood Fast or irregular heartbeat Severe trouble breathing Sudden confusion, fainting, or loss of consciousness Last Reviewed Date: 06/30/202119997862-3922 [employer]. All rights reserved. This information is not intended as a substitute for professional medical care. Always follow your healthcare professional's instructions. documented in this encounter Plan of Treatment Upcoming Encounters Date Type Department Care Team (Late st Contact Info) Description 09/21/2023 7:15 AM EST Cardiac Studies Cardiac Studies, [facility] [address] [facility] [place] [address] 10/02/2023 8:00 AM EST Office Visit Cardiology, [facility] [address] [facility] [place] [address] Cherrie Cope PA-C [address] [facility] [place] [address] 12/06/2023 8:00 AM EDT Office Visit Family Practice [facility] [address] [facility] [place] [address] Frederick Ortiz III, MD [address] [facility] [place] [address] 01/12/2024 8:00 AM EDT Nurse Only Ancillary [facility] [address] [facility] [place] [address] [place], Nurse Annual Wellness [address] [place] [address] 01/24/2024 4:00 PM EDT Office Visit Hematology/Oncology [facility] [address] [facility] [place] [address] Tremayne Veronica MD [address] [facility] [place] [address] Health Maintenance Due Date Last Done Comments [...] as of this encounter Visit Diagnoses Diagnosis Acute sinusitis, recurrence not specified, unspecified location- Primary Acute cough documented in this encounter Advance Directives Latest [...] the patient have Health Care Power of Production Line Mechanic? No Care Teams In Home Baby Sitter Relationship Specialty Start Date End Date Frederick Ortiz III, MD [address] [place] [address] PCP - General Family Medicine 05/20/13 documented as of this encounter"
--- OUTSIDE RECORDS SUMMARY | 2023-11-26 12:43 | External Medical Summary ---
Author Name Unknown Address Unknown Organization K09:[facility] [place] [address] Laboratory Report Ordering Provider Test Date Status SARAH POTTS 07/25/2023 15:13:37 Final Observation Date Value Abnormality Reference (Units ) Status BUN 07/25/2023 15:13:37 22 Above high normal 6-20 (mg/dL) Final Creatinine 07/25/2023 15:13:37 1.2 0.6-1.2 (mg/dL) Final Glomerular filtration rate/1.73 sq M.predicted [Volume Rate/Area] in Serum, Plasma or Blood by Creatinine-based formula (CKD-EPI) 07/25/2023 15:13:37 61 >=60 (mL/min) Final eGFR is calculated based on the CKD-EPI 2020 equation SODIUM 07/25/2023 15:13:37 142 135-146 (m mol/L) Final Potassium 07/25/2023 15:13:37 4.7 3.5-5.1 (m mol/L) Final Cl 07/25/2023 15:13:37 106 98-107 (mm ol/L) Final CO2 07/25/2023 15:13:37 28 22-32 (mmo l/L) Final Anion gap 07/25/2023 15:13:37 8 7-15 (mmol /L) Final Glucose 07/25/2023 15:13:37 95 70-120 (mg /dL) Final Albumin 07/25/2023 15:13:37 4.1 3.8-5.0 (g /dL) Final AST (Aspartate aminotransferase) 07/25/2023 15:13:37 19 10-50 (U/L) Final Alk Phos 07/25/2023 15:13:37 105 35-130 (U/ L) Final Bilirubin, Total 07/25/2023 15:13:37 0.6 <=1 .2 (mg/dL) Final Calcium 07/25/2023 15:13:37 8.9 8.4-10.2 ( mg/dL) Final Protein 07/25/2023 15:13:37 6.5 6.0-8.3 (g /dL) Final ALT (Alanine aminotransferase) 07/25/2023 15:13:37 12 10-50 (U/L) Final Performing Location [facility] [place] [address]
--- OUTSIDE RECORDS SUMMARY | 2023-11-26 12:43 | External Medical Summary | Summary of Care ---
Author Name Unknown Organization [facility] Address [address] [facility] [place] [address] Phone [phone] Care Team Providers Care Feedmobile Driver Name Role Phone Diana HANSEN MD, Frederick Swan Primary Care Provider [phone] Reason for Visit * Reason Onset Date Comments Re-Check Medication Administration 06/06/2023 Flu an d/or Pneumo Inj Encounter Details Date Type Department Care Team (Late st Contact Info) Description 06/06/2023 8:20 AM EST Office Visit Family Practice [facility] [address] [facility] [place] [address] Frederick Ortiz III, MD [address] [place] [address] HTN, goal below 140/90*; Need for prophylactic vaccination and inoculation against influenza; Dyslipidemia; Nonrheumatic aortic valve stenosis; Dyshydrosis Allergies No known active allergiesdocumented as of this encounter (statuses as of 06/09/2023) Medications Medication Sig Dispensed Refills Start Date [...] as of this encounter (statuses as of 06/09/2023) Active Problems Problem Noted Date Diagnosed Date Nonrheumatic aortic valve stenosis 03/21/2023 Bradycardia, sinus 09/21/2022 Essential (primary) hypertension 08/10/2022 Hereditary hemochromatosis 08/10/2022 Coronary artery disease invo lving [place] coronary artery of [place] heart without angina pectoris 07/29/2022 Osteoarthritis of shoulder 07/29/2022 Thrombocytopenia 07/29/2022 Medical home patient encounter 07/26/2022 Gastro-esophageal reflux disease without esophag itis 01/08/2021 Dyslipidemia 11/23/2018 History of nonmelanoma skin cancer 01/09/2018 HTN, goal below 140/90 05/11/2017 Dyslipidemia, goal LDL below 70 09/08/2014 MDS (myelodysplastic syndrome) 09/08/2014 ACEI/ARB contraindicated 09/11/2013 ATHEROSCLEROTIC CORONARY DISEASE 10/09/2002 documented as of this encounter (statuses as of 06/09/2023) Resolved Problems Problem Noted Date Diagnosed Date Resolved Date Cholelithiasis 07/29/2022 08/10/2022 Anemia 07/07/2014 09/08/2014 Thrombocytopenia 07/07/2014 09/08/2014 Aspergillus pneumonia 07/06/20142014 Overview: Suspected, formal bronch not done Drug-induced neutropenia 07/01/201403/2015 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 ECOG E2906 Clinical Trial [id number] 06/24/2014 06/25/2014 Overview: In consideration Urticaria, acute 09/16/2013 09/08/2014 Overview: began 09/11/13 Rash and nonspecific skin eruption 09/16/2013 09/08/2014 Angioedema 09/11/2013 09/08/2014 EXERTIONAL CHEST PAIN 10/09/20022014 CHR ISCHEMIC HRT DIS NOS 07/02/200206/2017 documented as of this encounter (statuses as of 06/09/2023) Immunizations Name Administration Dates Next Due COVID-19 mRNA, LNP-s, No Pre serve, 2-Dose Series (Share[employer]) 07/16/2021,11/17/2020,10/26/2020 Pneumococcal Conjugate Vacc, 13 Valent (Prevnar) 09/24/2014 Pneumococcal Polysaccharide PPV23 (Pneumovax) 07/20/2022,06/22/2010 SEASONAL INFLUENZA, PF, 6 M & Above, IM , (FLULAVAL or FLUZONE) 05/15/2018,05/11/2017 Seasonal Influenza, Quadriva lent Hd (Fluzone [...] Sign Reading Time Taken Comments Blood Pressure 128/59 06/06/2023 8:24 AM EST Pulse 49 06/06/2023 8:24 AM EST Temperature 36.7 C (98 F) 06/06/2023 8:24 AM EST Respiratory Rate 16 06/06/2023 8:24 AM EST Oxygen Saturation - - Inhaled Oxygen Concentration - - Weight - - Height - - Body Mass Index - - documented in this encounter Functional Status Functional [...] or making decisions? (5 years old or older No 06/23/2014 documented as of this encounter Progress Notes * [place] III, Frederick Swan MD - 06/06/2023 8:46 AM EST Subjective: Zneon Santana is a 82 year old male. Chief Complaint Patient presents with Re-Check Medication Administration Flu and/or Pneumo Inj HPI: Follow-up hypertension dyslipidemia hemochromatosis coronary artery disease aortic stenosis generally is been feeling well a rash developed on his legs couple months ago can be itchy at times has progressed physically active no exertional chest pain shortness for breath claudication no swelling of his ankles no bleeding urine or bowels last cardiology and hematology oncology notes reviewed last CBC hemoglobin of 12 point 9 ferritin 470 platelet count 99 kidney function GFR over 60 PMH: Patient Active Problem List Diagnosis Code ATHEROSCLEROTIC CORONARY DISEASE I25.10 ACEI/ARB contraindicated Z53.09 Dyslipidemia, goal LDL below 70 E78.5 MDS (myelodysplastic syndrome) (HCC) D46.9 HTN, goal below 140/90 I10 History of nonmelanoma skin cancer Z85.828 Dyslipidemia E78.5 Gastro-esophageal reflux disease without esophagitis K21.9 Medical home patient encounter Z00.8 Coronary artery disease involving [place] coronary artery of [place] heart without angina pectoris I25.10 Osteoarthritis of shoulder M19.019 Thrombocytopenia (HCC) D69.6 Essential (primary) hypertension I10 Hereditary hemochromatosis (HCC) E83.110 Bradycardia, sinus R00.1 Nonrheumatic aortic valve stenosis I35.0 Current Outpatient Medications Medication Sig Dispense Refill Eucerin External Cream Apply topically to affected area daily. To affected area of skin. 240 g 11 Aspirin 81 MG Tablet Take 1 Tablet [...] MOUTH IN THE MORNING 90 Capsule 3 No current facility-administered medications for this visit. 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 07/29/2022 Other chest pain 2002 Past Surgical History: Procedure Laterality Date CATARACT SURGERY,COMPLEX Bilateral 04/2022 COLORECTAL CANCER SCREEN; NOT AT RISK [id number] normal CT HEAD/BRAIN W WO CONTRAST 10/13/2004 mild to moderate atrophy LAPAROSCOPY; CHOLECYSTECTOMY REPAIR INITIAL INGUINAL HERNIA REDUCIBLE AGE 5 OR MORE 07/31/2002 right STRESS ECHO (EXERCISE) 04/19/2003 normal study Objective: The patient is a 82 year old male BP 128/59 | Pulse 49 | Temp 36.7 C (98 F) | Resp 16 General: alert, healthy, and no distress Eye Exam: PERRLA, extraocular movements intact, conjunctiva are pink and non- injected, sclera clear Oropharynx: no exudate, no erythema, lips, buccal mucosa, and tongue normal, and mucous membranes are moist Heart: regular rate & rhythm, no gallops, and grade 1-2/6 systolic murmur loudest right 2nd intercostal space Lungs: lungs clear to auscultation Extremities: no edema, no clubbing, no cyanosis Skin: Macular areas slightly scaly largest Silver dollar sized on the left leg smaller ones presentas well on the left more so than on the right ASSESSMENT: Z23 Need for prophylactic vaccination and inoculation against influenza (primary encounter diagnosis) I10 HTN, goal below 140/90 E78.5 Dyslipidemia Dyshidrosis Nonrheumatic aortic stenosis PLAN: Flu vaccine given tetanus vaccine in RSV vaccines discussed trial of Eucerin let us know how he is doing in 2 weeks Follow up in 6 month(s). Frederick Ortiz III, MD documented in this encounter Plan of Treatment Upcoming Encounters Date Type Department Care Team (Late st Contact Info) Description 07/25/2023 2:30 PM EST Office Visit Hematology/Oncology [address] [place] [address] Tremayne Veronica MD [address] [place] [address] [place] [address] 09/21/2023 7:15 AM EST Cardiac Studies Cardiac Studies, [facility] [address] [facility] [place] [address] 10/02/2023 8:00 AM EST Office Visit Cardiology, [facility] [address] [facility] [place] [address] Cherrie Cope PA-C [address] [facility] [place] [address] 12/06/2023 8:00 AM EDT Office Visit Family Practice [facility] [address] [facility] [place] [address] Frederick Ortiz III, MD [address] [place] [address] [place] [address] 01/12/2024 8:00 AM EDT Nurse Only Ancillary [facility] [place] [address] [facility] [place] [address] Daisy Nurse Annual Wellness [facility] [address] [facility] [place] [address] Health Maintenance Due Date Last Done Comments DTaP,Tdap,and Td Vaccines (2 - Td or Tdap) 01/02/2022 01/03/2012 COVID-19 Vaccine ( - season) 2023 07/16/2021, 11/17/2020, 10/26/2020 Depression Screening [...] as of this encounter Visit Diagnoses Diagnosis HTN, goal below 140/90- Primary Unspecified essential hypertension Need for prophylactic vaccination and inoculation against influenza Dyslipidemia Other and unspecified hyperlipidemia Nonrheumatic aortic valve stenosis Aortic valve disorders Dyshydrosis Dyshidrosis documented in this encounter Advance Directives Latest [...] the patient have Health Care Power of Learning Engineer? No Care Teams Feedmobile Driver Relationship Specialty Start Date End Date Frederick Ortiz III, MD [address] [place] [address] PCP - General Family Medicine 05/20/13 documented as of this encounter"
--- OUTSIDE RECORDS SUMMARY | 2023-11-26 12:43 | External Medical Summary | Summary of Care ---
Author Name Unknown Organization [facility] Address [address] [place] [address] Phone [phone] Care Team Providers Care Senior Qc Technician Name Role Phone Diana HANSEN MD, Frederick Swan Primary Care Provider [phone] Encounter Details Date Type Department Care Team (Late st Contact Info) Description 06/08/2023 Banquet Line CookBird Tender Practice [facility] [address] [place] [address] Beba Onofre, RN [address] [place] [address] Medical home patient encounter* Allergies No known active allergiesdocumented as of this encounter (statuses as of 06/08/2023) Medications Medication Sig Dispensed Refills Start Date [...] as of this encounter (statuses as of 06/08/2023) Active Problems Problem Noted Date Diagnosed Date Nonrheumatic aortic valve stenosis 03/21/2023 Bradycardia, sinus 09/21/2022 Essential (primary) hypertension 08/10/2022 Hereditary hemochromatosis 08/10/2022 Coronary artery disease invo lving [place] coronary artery of [place] heart without angina pectoris 07/29/2022 Osteoarthritis of shoulder 07/29/2022 Thrombocytopenia 07/29/2022 Medical home patient encounter 07/26/2022 Gastro-esophageal reflux disease without esophag itis 01/08/2021 Dyslipidemia 11/23/2018 History of nonmelanoma skin cancer 01/09/2018 HTN, goal below 140/90 05/11/2017 Dyslipidemia, goal LDL below 70 09/08/2014 MDS (myelodysplastic syndrome) 09/08/2014 ACEI/ARB contraindicated 09/11/2013 ATHEROSCLEROTIC CORONARY DISEASE 10/09/2002 documented as of this encounter (statuses as of 06/08/2023) Resolved Problems Problem Noted Date Diagnosed Date Resolved Date Cholelithiasis 07/29/2022 08/10/2022 Anemia 07/07/2014 09/08/2014 Thrombocytopenia 07/07/2014 09/08/2014 Aspergillus pneumonia 07/06/20142014 Overview: Suspected, formal bronch not done Drug-induced neutropenia 07/01/201403/2015 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 ECOG E2906 Clinical Trial [id number] 06/24/2014 06/25/2014 Overview: In consideration Urticaria, acute 09/16/2013 09/08/2014 Overview: began 09/11/13 Rash and nonspecific skin eruption 09/16/2013 09/08/2014 Angioedema 09/11/2013 09/08/2014 EXERTIONAL CHEST PAIN 10/09/20022014 CHR ISCHEMIC HRT DIS NOS 07/02/200206/2017 documented as of this encounter (statuses as of 06/08/2023) Immunizations Name Administration Dates Next Due COVID-19 mRNA, LNP-s, No Pre serve, 2-Dose Series (Pfizer) 07/16/2021,11/17/2020,10/26/2020 Pneumococcal Conjugate Vacc, 13 Valent (Prevnar) 09/24/2014 Pneumococcal Polysaccharide PPV23 (Pneumovax) 07/20/2022,06/22/2010 RSV Vac., Bivalent, Perfusio n F, Pf,0.5 Ml (Abrysvo) 06/08/2023 SEASONAL INFLUENZA, PF, 6 M & Above, [...] as of this encounter Progress Notes * Beba Onofre RN - 06/08/2023 1:17 PM EST Banquet Line Cook Progress Note: Date: 06/08/23 Assigned Patient Tier: 4 Connected with patient via telephone. Verified patient name/. Advised patient that call is beingrecorded for quality and training purposes. Assessment: Pt. noted the following: PT seen by PCP 06/06 and is doing well. No utilization for past 6 months and no needs at this time. Did you receive an alert for an annual wellness visit? No Is this call for a hospital, chcf or rehab facility discharge to home? No Medication Reconciliation: Medication Reconciliation completed: yes Review of Current goals: Discussed the following patient-centered CM goals with the patient during this discussion: -HYPERTENSION: Achieve successful management/treatment of HTN -Status: Completed . -SAFETY: Prevent falls or injuries -Status: Completed Denies falls. -Advanced Directive (AD): Patient will complete Advanced Care Planning -Status: On Hold COPD Patient: No CHF Patient: NO CM Plan: Reviewed 3 Red Flags with patient. Advised to call CM with any of the following: Red Flag 1: weakness or dizziness, Red Flag 2: fevers or chills, or Red Flag 3: falls or injury Remote Patient Monitoring: At this time, RPM not offered/considered for patient due to NA. Advancement/Closure Plan: Close patient from case management as all goals and needs met. Patient provided CM contact information and encouraged to call with any changes in condition. SNP Member? No PCP Notified of enrollment in CM/HM program: Yes Is Provider in agreement with POC? Yes CM Transition/Closure: Review of current patient status: SNP LOB: no Outstanding Goals: NONE Current Status of Advanced Care Planning: ACP conversation initiated, referred to physician for continuation of conversation. (see ACP activity for specifics) Medications: Medications Reviewed and Optimized Current Exacerbation Plan: NA Community Resource Needs: All necessary community resource needs met/in place. Future Appointments Scheduled: Future Appointments-next 60 days Date/Time Provider Specialty Dept Phone 07/25/2023 2:30 PM (Arrive by 2:15 PM) Tremayne Veronica MD Hematology Oncology [phone] 09/21/2023 7:15 AM PARARESCUE MANAGER 1 [facility] Cardiac Studies [phone] 10/02/2023 8:00 AM (Arrive by 7:45 AM) Cherrie Cope PA-C Cardiology [phone] 12/06/2023 8:00 AM (Arrive by 7:45 AM) Frederick Ortiz III, MD Family Medicine [phone] 01/12/2024 8:00 AM Nurse Daisy [facility] [phone] No Appointment needed at this time. Health Plan Benefits assessed: No. At request of patient, furnished with insurance option resources. Pt. Has had no utilization for a period of 6 months. Upon review of patient status plan to close patient from Outpatient Case Management services.. Reinforced CM contact information as well as PCP office contact information for any change in status or questions. Pt. made aware of this transition. Warm Hand-off: This note serves as written notification of Transition/Closure plan as well as handoff details. Warm hand-off conducted: No. Beba Onofre RN Outpatient Case Management documented in this encounter Plan of Treatment Upcoming Encounters Date Type Department Care Team (Late st Contact Info) Description 07/25/2023 2:30 PM EST Office Visit Hematology/Oncology [place] [address] [place] [address] Tremayne Veronica MD 200 [facility] [place] [address] 09/21/2023 7:15 AM EST Cardiac Studies Cardiac Studies, [facility] [address] [place] [address] 10/02/2023 8:00 AM EST Office Visit Cardiology, [facility] [address] [place] [address] Cherrie Cope, PA-Kilo 132 [facility] [place] [address] 12/06/2023 8:00 AM EDT Office Visit Family Practice [facility] [place] [address] [facility] [place] [address] Frederick Ortiz III, MD [address] [facility] [place] [address] 01/12/2024 8:00 AM EDT Nurse Only Ancillary [facility] [address] [facility] [place] [address] [place], Nurse Annual Wellness [address] [place] [address] Health Maintenance Due Date Last Done Comments [...] as of this encounter Visit Diagnoses Diagnosis Medical home patient encounter- Primary Other specified examination documented in this encounter Advance Directives Latest [...] the patient have Health Care Power of Health Physicist? No Care Teams Senior Qc Technician Relationship Specialty Start Date End Date Frederick Ortiz III, MD [address] [place] [address] PCP - General Family Medicine 05/20/13 documented as of this encounter
--- OUTSIDE RECORDS SUMMARY | 2023-11-26 12:43 | External Medical Summary ---
Author Name Unknown Address Unknown Organization K09:[facility] [place] [place] [address] Laboratory Report Ordering Provider Test Date Status SARAH POTTS 07/25/2023 15:13:37 Final Observation Date Value Abnormality Reference (Units ) Status WBC, Total 07/25/2023 15:13:37 6.93 4.00-10.8 0 (K/uL) Final RBC 07/25/2023 15:13:37 3.90 4.50-5.25 (M/uL) Final Hemoglobin 07/25/2023 15:13:37 11.8 Below low normal 14 .0-16.8 (g/dL) Final HCT 07/25/2023 15:13:37 38.0 Below low normal 40. 0-48.4 (%) Final MCV 07/25/2023 15:13:37 97.4 82.0-99.5 (fL) Final MCH 07/25/2023 15:13:37 30.3 27.0-34.0 (pg) Final MCHC 07/25/2023 15:13:37 31.1 32.0-36.0 (g/dL) Final RDW 07/25/2023 15:13:37 14.9 11.5-15.5 (%) Final Platelets 07/25/2023 15:13:37 121 Below low normal 140 -400 (K/uL) Final MPV 07/25/2023 15:13:37 10.7 6.6-11.1 ( fL) Final Performing Location [facility] [place] [address]
--- OUTSIDE RECORDS SUMMARY | 2023-11-26 12:43 | External Medical Summary | Summary of Care ---
Author Name Unknown Organization [facility] Address [address] [place] [address] Phone [phone] Care Team Providers Care Aircraft Armament Mechanic Name Role Phone Diana HANSEN MD, Frederick Swan Primary Care Provider [phone] Reason for Visit * Reason Comments Sinus Problem Encounter Details Date Type Department Care Team ([facility] st Contact Info) Description 09/20/2023 9:40 AM [facility] Con[facility]ient Care Visit [facility] [address] [place] [address] Wing Valladares PA-C [address] [place], [place] [id number] Acute non-recurrent maxillary sinusitis* Allergies No known active allergiesdocumented as of this encounter (statuses as of 09/20/2023) Medications Medication Sig Dispensed Refills Start Date End Date Status Aspirin 81 MG Tablet Take 1 Tablet by mouth in the morning. 0 Active Atorvastatin Calcium 20 MG Oral Tablet (Lipitor)Indications :Chronic ischemic heart disease,ASCVD (arteriosclerotic cardiovascular disease) TAKE ONE TABLET BY MOUTH IN THE MORNING 90 Tablet 3 04/03/2023 4 Active amLODIPine Besylate 5 MG Oral Tablet (Norvasc) TAKE 1 TABLET BY MOUTH ONCE DAILY 90 Tablet 3 04/03/2023 4 Active Tamsulosin HCl 0.4 MG Oral Capsule (Flomax) TAKE ONE CAPSULE BY MOUTH IN THE MORNING 90 Capsule 3 04/04/2023 4 Active Eucerin External Cream Apply topically to affected area daily. To affected area of skin. 240 g 11 06/06/2023 Active Amoxicillin-Pot Clavulanate 875-125 MG Oral Tablet (Augmentin) Take 1 Tablet by mouth in the morning and 1 Tablet before bedtime for 10 days. 20 Tablet 0 09/20/2023 Active predniSONE 20 MG Oral Tablet (Deltasone) Take 2 Tablets by mouth in the morning for 5 days. 10 Tablet 0 09/20/2023 Active Benzonatate 100 MG Oral Capsule Take 1 Capsule by mouth 3 times a day as needed for Cough for up to 7 days. 21 Capsule 0 09/20/2023 4 Active Benzonatate 100 MG Oral Capsule (Tessalon Perles)Indications:A cute sinusitis, recurrence not specified, unspecified location,Acute cough Take 1 Capsule by mouth 3 times a day as needed for Cough. Do not cut, crush, or chew. 50 Capsule 1 08/03/2023 4 Discontinue d(Refill) documented as of this encounter (statuses as of 09/20/2023) Active Problems Problem Noted Date Diagnosed Date Nonrheumatic aortic valve stenosis 03/21/2023 Bradycardia, sinus 09/21/2022 Essential (primary) hypertension 08/10/2022 Hereditary hemochromatosis 08/10/2022 Coronary artery disease invo lving [place] coronary artery of [place] heart without angina pectoris 07/29/2022 Osteoarthritis of shoulder 07/29/2022 Thrombocytopenia 07/29/2022 Medical home patient encounter 07/26/2022 Gastro-esophageal reflux disease without esophag itis 01/08/2021 Dyslipidemia 11/23/2018 History of nonmelanoma skin cancer 01/09/2018 HTN, goal below 140/90 05/11/2017 Dyslipidemia, goal LDL below 70 09/08/2014 MDS (myelodysplastic syndrome) 09/08/2014 ACEI/ARB contraindicated 09/11/2013 ATHEROSCLEROTIC CORONARY DISEASE 10/09/2002 documented as of this encounter (statuses as of 09/20/2023) Resolved Problems Problem Noted Date Diagnosed Date Resolved Date Cholelithiasis 07/29/2022 08/10/2022 Anemia 07/07/2014 09/08/2014 Thrombocytopenia 07/07/2014 09/08/2014 Aspergillus pneumonia 07/06/20142014 Overview: Suspected, formal bronch not done Drug-induced neutropenia 07/01/201403/2015 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 [facility] E2906 Clinical Trial [id number] 06/24/2014 06/25/2014 Overview: In consideration Urticaria, acute 09/16/2013 09/08/2014 Overview: began 09/11/13 Rash and nonspecific skin eruption 09/16/2013 09/08/2014 Angioedema 09/11/2013 09/08/2014 EXERTIONAL CHEST PAIN 10/09/20022014 CHR ISCHEMIC HRT DIS NOS 07/02/200206/2017 documented as of this encounter (statuses as of 09/20/2023) Immunizations Name Administration Dates Next Due COVID-19 mRNA, LNP-s, No Pre serve, 2-Dose Series ([employer]) 07/16/2021,11/17/2020,10/26/2020 Pneumococcal Conjugate Vacc, 13 Valent (Prevnar) [...] Sign Reading Time Taken Comments Blood Pressure 140/70 09/20/2023 9:49 AM EST Pulse 52 09/20/2023 9:49 AM EST Temperature 36.2 C (97.2 F) 09/20/2023 9:49 AM ES T Respiratory Rate 16 09/20/2023 9:49 AM EST Oxygen Saturation 99% 09/20/2023 9:49 AM EST Inhaled Oxygen Concentration - - Weight 92.5 kg (204 lb) 09/20/2023 9:49 AM EST Height - - Body Mass Index 28.47 01/09/2023 8:49 AM EDT documented in this [...] as of this encounter Progress Notes * Wing Valladares PA-C - 09/20/2023 9:58 AM EST [facility] Basic Exam HPI: Zenon Santana is a 82 year old year old male who presents for evaluation of ur congestion with sinus pressure/pain for the last two weeks with no resolved despite OTC medication. No fever. Had something similar in July. 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 07/29/2022 Other chest pain 2002 Past Surgical History: Procedure Laterality Date CATARACT SURGERY,COMPLEX Bilateral 04/2022 COLORECTAL CANCER SCREEN; NOT AT RISK 083313 normal CT HEAD/BRAIN W WO CONTRAST 10/13/2004 mild to moderate atrophy LAPAROSCOPY; CHOLECYSTECTOMY REPAIR INITIAL INGUINAL HERNIA REDUCIBLE AGE 5 OR MORE 07/31/2002 right STRESS ECHO (EXERCISE) 04/19/2003 normal study Social History Tobacco Use Smoking status: Never Smokeless tobacco: Never Tobacco comments: no passive smoke Substance Use Topics Alcohol use: No Vaping/E-Cigarette Use Vaping/E-Cigarette Use Never User Vaping/E-Cigarette Substances Vaping/E-Cigarette Devices Patient Active Problem List Diagnosis Code ATHEROSCLEROTIC CORONARY DISEASE I25.10 ACEI/ARB contraindicated Z53.09 Dyslipidemia, goal LDL below 70 E78.5 MDS (myelodysplastic syndrome) (HCC) D46.9 HTN, goal below 140/90 I10 History of nonmelanoma skin cancer Z85.828 Dyslipidemia E78.5 Gastro-esophageal reflux disease without esophagitis K21.9 Medical home patient encounter Z00.8 Coronary artery disease involving [place] coronary artery of [place] heart without angina pectoris I25.10 Osteoarthritis of shoulder M19.019 Thrombocytopenia (HCC) D69.6 Essential (primary) hypertension I10 Hereditary hemochromatosis (HCC) E83.110 Bradycardia, sinus R00.1 Nonrheumatic aortic valve stenosis I35.0 Review of patient's allergies indicates: No Known Allergies Current Outpatient Medications Medication Sig Dispense Refill Amoxicillin-Pot Clavulanate 875-125 MG Oral Tablet (Augmentin) Take 1 Tablet by mouth in the morning and 1 Tablet before bedtime. Do all this for 10 days. 20 Tablet 0 predniSONE 20 MG Oral Tablet (Deltasone) Take 2 Tablets by mouth in the morning for 5 days. 10 Tablet 0 Benzonatate 100 MG Oral Capsule Take 1 Capsule by mouth 3 times a day as needed for Cough for up to7 days. 21 Capsule 0 Aspirin 81 MG Tablet Take 1 Tablet [...] No current facility-administered medications for this visit. Nursing Notes and Vital Signs reviewed. BP 140/70 | Pulse 52 | Temp 36.2 C (97.2 F) (Tympanic) | Resp 16 | Wt 92.5 kg (204 lb) | SpO2 99% | BMI 28.47 kg/m | BSA 2.15 m Physical Exam Vitals and nursing note reviewed. Constitutional: General: He is not in acute distress. Appearance: He is not ill-appearing or toxic-appearing. HENT: Head: Normocephalic. Nose: Congestion present. Right Sinus: Maxillary sinus tenderness present. Left Sinus: Maxillary sinus tenderness present. Mouth/Throat: Lips: [place]. Mouth: Mucous membranes are moist. Pharynx: Oropharynx is clear. Pulmonary: Effort: Pulmonary effort is normal. Breath sounds: Normal breath sounds and air entry. Neurological: Mental Status: He is alert. Psychiatric: Behavior: Behavior is cooperative. ASSESSMENT: Acute non-recurrent maxillary sinusitis (Primary) Other orders - Amoxicillin-Pot Clavulanate 875-125 MG Oral Tablet (Augmentin); Take 1 Tablet by mouth in the morning and 1 Tablet before bedtime. Do all this for 10 days. - predniSONE 20 MG Oral Tablet (Deltasone); Take 2 Tablets by mouth in the morning for 5 days. - Benzonatate 100 MG Oral Capsule; Take 1 Capsule by mouth 3 times a day as needed for Cough for upto 7 days. Plan: Will treat. Patient goals for plan of care were discussed Follow up with PCP or seek emergency medical attention as needed if symptoms worsen, evolve, or fail to improve. Patient demonstrates understanding of the visit, course of treatment, and instructions. Medication instructions and possible side effects were reviewed with patient. All questions were answered and patient agrees to plan of care. Wing Valladares PA-C [facility] [address] [facility] [address] documented in this encounter Nursing Notes * Saida Devries LPN - 09/20/2023 9:49 AM EST 82 yo male presents with head/nasal congestion, cough x 2 weeks. Took advil/cough med documented in this encounter Plan of Treatment Upcoming Encounters Date Type Department Care Team (Late st Contact Info) Description 09/21/2023 7:15 AM EST Cardiac Studies Cardiac Studies, [facility] [address] [place] [address] 10/18/2023 3:30 PM EDT Office Visit Cardiology, [facility] [address] [place] [address] Cherrie Cope PA-C [address] [place] [address] 12/06/2023 8:00 AM EDT Office Visit [facility] [address] [facility] [address] Frederick Ortiz III, MD [address] [facility] [place] [address] 01/12/2024 8:00 AM EDT Nurse Only Ancillary [facility] [place] [address] [facility] [place] [address] Daisy, Nurse Annual Wellness [address] [place] [address] 01/24/2024 4:00 PM EDT Office Visit Hematology/Oncology [facility] [place] [address] [facility] [place], [place] [id number] Tremayne Veronica MD [address] [facility] [place] [address] Health Maintenance Due Date Last Done Comments [...] of this encounter Visit Diagnoses Diagnosis Acute non-recurrent maxillary sinusitis- Primary documented in this encounter Advance Directives Latest [...] the patient have Health Care Power of Sweetbread Trimmer? No Care Teams Aircraft Armament Mechanic Relationship Specialty Start Date End Date Frederick Ortiz III, MD [address] [place] [address] PCP - General Family Medicine 05/20/13 documented as of this encounter"
--- OUTSIDE RECORDS SUMMARY | 2023-11-26 12:43 | External Medical Summary | Summary of Care ---
Author Name Unknown Organization [facility] Address [address] [facility] [place] [address] Phone [phone] Care Team Providers Care Bait Maker Name Role Phone Diana HANSEN MD, Frederick Swan Primary Care Provider [phone] Reason for Visit * Reason Comments Follow Up Encounter Details Date Type Department Care Team (Latest Contact Info) Description 07/25/2023 2:30 PM EST Office Visit Hematology/Oncology [facility] [address] [place] [address] [facility] [place] [address] Tremayne Veronica MD [address] [facility] [place] [address] Thrombocytopenia (HCC)*; MDS (myelodysplastic syndrome) (HCC); Elevated [...] hemochromatosis 08/10/2022 Coronary artery disease invo lving [place] coronary artery of [place] heart without angina pectoris 07/29/2022 Osteoarthritis of [...] disorder 06/27/2014 12/30/2015 [facility] E2906 Clinical Trial [id number] 06/24/2014 06/25/2014 Overview: In consideration Urticaria, acute [...] EST Outpatient Consult Note Data Source: Patient, [facility] record. Data Source: Patient, Epic record. 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 Patient was recently admitted to the hospital and discharged on 01/05/2021 with complaint of abdominal pain. He had cholangiopancreatography MRI on 01/01/2021 and shows dilatation of the gallbladder which could be consistent with cholecystitis. He underwent cholecystectomy and pathology was consistent with acute and chronic cholecystitis with cholelithiasis. On 05/2014 he was admitted to [facility] with generalized weakness and was found to have a pancytopenia. Bone marrow biopsy showed aplasia along with the presence of a T-Cell clone, it was sent to the [facility] and was felt to be consistent with T-Cell Large Granular Lymphocytic Leukemia. He was treated with high-dose Cyclophosphamide/Dex and achieved a good MI. Later when FISH kishore lysis of his [...] and creatinine was 1.2. 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 and feeling better with improvement [...] 7:15 AM EST Cardiac Studies Cardiac Studies, [facility] [address] [place] [address] 10/02/2023 8:00 AM EST Office Visit [facility]iology, [facility] [place] [address] Cherrie Cope PA-C [address] [place] [address] 12/06/2023 8:00 AM EDT Office Visit [facility] [place] [address] Frederick Ortiz III, MD [address] [facility] [place] [address] 01/12/2024 8:00 AM EDT Nurse Only Ancillary [facility] [place] [address] [facility] [place] [address] [place], Nurse Annual Wellness [facility] [address] [facility] [place] [address] 01/24/2024 4:00 PM EDT Office Visit Hematology/Oncology [facility] [place] [address] [facility] [place] [address] Tremayne Veronica MD 200 [facility] [place] [address] Pending Results Name Type Priority Associated Diagnoses Date /Time CBC WITH WBC DIFFERENTIAL Lab Routine Thrombocytopenia (HCC) MDS (myelodysplastic syndrome) (HCC) Elevated ferritin 07/25/2023 3:13 PM EST COMPREHENSIVE METABOLIC PANEL Lab Routine Thrombocytopenia (HCC) MDS (myelodysplastic syndrome) (HCC) Elevated ferritin 07/25/2023 3:13 PM EST FERRITIN Lab Routine Thrombocytopenia (HCC) MDS (myelodysplastic syndrome) (HCC) Elevated ferritin 07/25/2023 3:13 PM EST IRON SCREEN, INCLUDING TIBC Lab Routine Thrombocytopenia (HCC) MDS (myelodysplastic syndrome) (HCC) Elevated ferritin 07/25/2023 3:13 PM EST CBC Lab Routine Thrombocytopenia (HCC) MDS (myelodysplastic syndrome) (HCC) Elevated ferritin 07/25/2023 3:13 PM EST DIFFERENTIAL, AUTOMATED Lab Routine Thrombocytopenia (HCC) MDS (myelodysplastic syndrome) (HCC) Elevated ferritin 07/25/2023 3:13 PM EST Scheduled Orders Name Type Priority Associated Diagnoses [...] Td or Tdap) 01/02/2022 01/03/2012 COVID-19 Vaccine (4 - season) 2023 07/16/2021, 11/17/2020, 10/26/2020 Depression [...] the patient have Health Care Power of Sql Report Writer? No Care Teams Bait Maker Relationship Specialty Start Date End Date Frederick Ortiz III, MD [address] [place] [address] PCP - General Family Medicine 05/20/13 documented as of this encounter"
--- OUTSIDE RECORDS SUMMARY | 2023-11-26 12:43 | External Medical Summary ---
Author Name Unknown Address Unknown Organization K01:[facility] - [address] [place] [address] Laboratory Report Ordering Provider Test Date Status SARAH POTTS 07/25/2023 15:13:37 Final Observation Date Value Abnormality Reference (Units ) Status Ferritin 07/25/2023 15:13:37 563 Above high normal 30 -400 (ng/mL) Final Performing Location [facility] - [address] [place] [address]
--- OUTSIDE RECORDS SUMMARY | 2023-11-26 12:43 | External Medical Summary ---
Author Name Unknown Address Unknown Organization K09:[facility] [place] [address] Laboratory Report Ordering Provider Test Date Status SARAH POTTS 07/25/2023 15:13:37 Final Observation Date Value Abnormality Reference (Units ) Status SYNC LEUKOCYTES IN BLOOD BY AUTOMATED COUNT 07/25/2023 15:13:37 6.93 4.00-10.80 (K/uL) Final Segs 07/25/2023 15:13:37 65.7 40.0-75.0 (%) Final Lymphs % 07/25/2023 15:13:37 17.5 Below low normal 18.0-42.0 (%) Final Monos 07/25/2023 15:13:37 11.4 Above high normal 1.0-11.0 (%) Final Eosinophils 07/25/2023 15:13:37 5.1 0.0-6.0 (%) Final Basos 07/25/2023 15:13:37 0.3 0.0-2.0 (%) Final Absolute Segs 07/25/2023 15:13:37 4.56 1.80-7.70 (K/uL) Final Lymphs, absolute 07/25/2023 15:13:37 1.21 1.00-4.80 (K/ul) Final Monos, Abs 07/25/2023 15:13:37 0.79 0.00-1.10 (K/uL) Final Eos, Abs 07/25/2023 15:13:37 0.35 0.00-0.70 (K/uL) Final Basos, Abs 07/25/2023 15:13:37 0.02 0.00-0.20 (K/uL) Final Performing Location [facility] [place] [address]
--- OUTSIDE RECORDS SUMMARY | 2023-11-26 12:43 | External Medical Summary ---
Author Name Unknown Address Unknown Organization K01:[facility] [place] [address] [place] [address] Laboratory Report Ordering Provider Test Date Status SARAH POTTS 07/25/2023 15:13:37 Final Observation Date Value Abnormality Reference (Units ) Status Iron 07/25/2023 15:13:37 42 Below low normal 45-176 (ug/dL) Final Iron-binding capacity 07/25/2023 15:13:37 204 Below low normal 250-425 (ug/dL) Final Transferrin Sat % 07/25/2023 15:13:37 21 15-55 (%) Final Performing Location [facility] [place] [address] [place] [address]
--- NOTE | 2023-11-26 12:50 | Emergency Department Note ---
Impression & Plan Atypical chest pain, Abdominal pain, Nausea vomiting and diarrhea ED Provider Note NAME: ANDREY MENSAH AGE: 82 SEX: M : 1940 ARRIVES VIA: Walk-In INFORMANT: Patient, ED PROVIDER(S): To Mason MD CHIEF COMPLAINT: MEDICAL DECISION MAKING: Patient presented due to concern for abdominal pain nausea vomiting diarrhea as well as chest pain that was right-sided radiating to the arm neck and jaw. IV was established and blood work was obtained. EKG reviewed which does show T wave versions but they appear to be chronic. Patient's blood work shows a normal white count H&H and mild thrombocytopenia 97,000. Kidney function is unremarkable magnesium at low normal troponin is not elevated. Patient did have a chest and abdominal series performed which shows moderate fecal retention but otherwise no overt concerning findings. Given the patient has not had a stress test in several years with atypical chest pain I did speak the on-call hospital service Bradley Paula PA-C and the patient was admitted by Dr. Farooq Discussion w/ other healthcare providers: None Prior /Outside records reviewed: None Differential diagnosis: Cardiac ischemia, aortic dissection, pulmonary embolism, pneumothorax, pneumonia, pericarditis, myocarditis, GERD, cholecystitis, pancreatitis, musculoskeletal, as well as other pathologies were considered. Diagnostics, as interpreted by me: ECG: Sinus with a rate of 75, normal CA and QRS intervals, normal axis T wave versions anteriorly and laterally should not show significant changes from prior EKG from June 2022. Cardiac monitoring: An order was placed for continuous cardiac monitoring. The monitor shows a rate of 75 with sinus rhythm. Patient was placed on pulse oximetry Medical decision rules: None Imaging studies: I informally interpreted the patient's Chest and abdominal x-rays which do not show evidence of obvious pneumonia or free air with formal report to follow. HPI: Patient presents due to concern for abdominal pain and chest pain. Patient states that he did have chest pain shortness of breath abdominal pain nausea vomiting and diarrhea. The patient states initially awoke around 4 AM had a bowel movement went to go sit on the couch felt as though he had some associated leg swelling. Patient states that when he woke up sometime around 10:00 he noticed some chest pain and shortness of breath he states he felt like something was moving under his skin and movement to his right shoulder and jaw. Patient did have nausea and vomited but the patient denies any diaphoresis. Per review of the patient's medical records last stress test performed several years ago. Patient denies any current upper respiratory symptoms and is currently pain- free. They do have 4 grandchildren which sometimes can be sick. Patient denies any changes in diet no known travel. PAST MEDICAL HISTORY: See Below PAST SURGICAL HISTORY: See Below SOCIAL HISTORY: See Below HOME MEDICATIONS: See Below ALLERGIES: See Below VITALS: See Below PHYSICAL EXAMINATION: GENERAL: NAD, non-toxic. Wearing glasses EYE EXAM: Normal conjunctiva. PERRL, no anisocoria and EOM's grossly intact w/o pain. OROPHARYNX: Moist mucus membranes, grossly normal dentition. NECK: Trachea midline, no stridor. LUNGS: Clear to auscultation. Normal chest wall mechanics. HEART: NSR, no MRG. ABDOMEN: Abdomen soft, non-tender, no masses, no rebound or guarding. BACK: No CVA TTP. SKIN: No rashes and no bruising. UPPER EXTREMITIES: Upper extremities are grossly normal. LOWER EXTREMITIES: Grossly normal, no edema. Negative Homans' sign bilaterally. NEURO EXAM: A&O x3, cranial nerves II-XII grossly intact, normal speech, moves all 4 extremities. 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 Family History Other No family history of adverse response to anesthesia Social History Smoking Status: Never smoker Second Hand Exposure: No; Do You Dip or Chew Tobacco: No; Hx Alcohol Use: No Hx Substance Use: No Preferred Language: Romanian Communication Ability: Effective In Service Educator Required: No Beliefs That Will Affect Care: None marital status: Current Living Situation: Spouse and Family Current Living Situation Comment: lives with , son/DIL and grandkids live next door current occupational status: retired How many Children do You have: 1 Other Information That Helps Us Care for You: No Feels Safe at Home: Yes Safety Concerns: Feels Safe At This Time during the past year weight has: decreased > 10 lbs Assistive Devices: Glasses and Hearing Aid - Bilateral Allergies Allergies Allergy/AdvReac Type Severity Reaction Status Date / Time tramadol AdvReac Intermediate NAUSEA Verified 11/26/23 15:03 Home Meds Home Medications Medication Instructions Recorded Confirmed amlodipine 5 mg tablet 5 mg PO QPM 12/31/20 11/26/23 aspirin 81 mg tablet,delayed 81 mg PO QPM 12/31/20 11/26/23 release atorvastatin 20 mg tablet 20 mg PO QPM 12/31/20 11/26/23 calcium carbonate 600 mg-vitamin 1 tab PO QPM 12/31/20 11/26/23 D3 10 mcg (400 unit) tablet (Calcium 600 + D(3)) garlic 1,000 mg capsule 1,000 mg PO QPM 12/31/20 11/26/23 omega 1-oqu-uat-fish oil 1,000 mg 1 cap PO QPM 12/31/20 11/26/23 (120 mg-180 mg) capsule (Fish Oil) tamsulosin 0.4 mg capsule 0.4 mg PO QPM 05/20/22 11/26/23 Results & Data (ED) Vital Signs Vital Signs - 24 hr 11/26/23 12:42 Temperature 36.7 C Temperature Source Temporal Artery Scan Pulse Rate 81 Respiratory Rate 18 Respiratory Effort / Characteristics Non-Labored Respiratory Depth Normal Respiratory Pattern Regular Blood Pressure 125/80 Blood Pressure Mean 95 Pulse Oximetry 91 Oxygen Delivery Method Room Air Sepsis Recent Fever Within 48 Hours No Sepsis New/Unexplained Change in Mental Status N/A Sepsis Action Taken by Nursing No Action Required Home Medications Current Medication List: was personally reviewed by me Laboratory Data Attestation: I reviewed the patient's lab results. 11/27/23 05:55 11/27/23 05:55 Lab Results 11/26/23 Range/Units 12:55 WBC 9.61 (4.8-10.8) K/ul RBC 4.58 L (4.70-6.10) M/uL Hgb 14.3 (14.0-18.0) g/dl Hct 43.0 (42.0-52.0) % MCV 93.9 (80.0-100.0) fL MCH 31.2 (25.0-34.0) pg MCHC 33.3 (32.0-36.0) g/dL RDW Std Deviation 48.6 H (36.4-46.3) fL RDW Coeff of Marisela 14.2 (11.5-14.5) % Plt Count 97 L (130-400) K/uL MPV 11.3 (9.4-12.4) fL Immature Gran % (Auto) 0.2 % Neut % (Auto) 87.2 % Lymph % (Auto) 5.8 % Daniels % (Auto) 6.1 % Eos % (Auto) 0.4 % Baso % (Auto) 0.3 % Neut # (Auto) 8.37 H (1.40-6.50) K/uL Lymph # (Auto) 0.56 L (1.20-3.40) K/uL Daniels # (Auto) 0.59 (0.11-0.59) K/uL Eos # (Auto) 0.04 (0.00-0.50) K/uL Baso # (Auto) 0.03 (0.00-0.20) K/uL Immature Gran # (Auto) 0.02 (0.01-0.20) K/uL Sodium 140 (136-145) mmol/L Potassium 4.2 (3.5-5.1) mmol/L Chloride 108 H (98-107) mmol/L Carbon Dioxide 24 (21-32) mmol/L Anion Gap 8 (3-11) BUN 20 (6-23) mg/dl Creatinine 1.02 (0.6-1.4) mg/dl Est Cr Clr Drug Dosing 59.2 ml/min Est GFR ( Amer) 77.9 ml/min Est GFR (Non-Af Amer) 67.2 ml/min BUN/Creatinine Ratio 19.6 (10-20) Glucose 104 H (70-99(Fasting)) mg/dl Calcium 8.8 (8.6-10.3) mg/dl Magnesium 1.7 (1.7-2.4) mg/dl Total Bilirubin 1.7 H (0.2-1.0) mg/dl AST 17 (13-39) U/L ALT 11 (7-52) U/L Alkaline Phosphatase 78 (34-104) U/L Troponin I High Sens 3.0 (0-20) pg/ml Total Protein 6.8 (6.0-8.3) gm/dl Albumin 4.3 (3.4-5.0) gm/dl Globulin 2.5 (2.5-4.0) gm/dl Albumin/Globulin Ratio 1.7 (0.9-2) Lipase 10 L (11-82) U/L Administered Medications Discontinued Medications Acetaminophen (Acetaminophen 500 Mg Tab) 1,000 mg PO NOW STA Stop: 11/26/23 16:21 Last Admin: 11/26/23 17:34 Dose: 1,000 mg Documented By: SUKUMAR Amlodipine Besylate (Amlodipine Besylate 5 Mg Tab) 5 mg PO QPM MICHELLE Stop: 12/26/23 20:59 Last Admin: 11/26/23 21:01 Dose: 5 mg Documented By: AEMichael Aspirin (Aspirin 81 Mg Ectab) 81 mg PO QPM MICHELLE Stop: 12/26/23 20:59 Last Admin: 11/26/23 21:00 Dose: 81 mg Documented By: ADOLFO Atorvastatin Calcium (Atorvastatin 20 Mg Tab) 20 mg PO QPM MICHELLE Stop: 12/26/23 20:59 Last Admin: 11/26/23 21:00 Dose: 20 mg Documented By: ADOLFO Atropine Sulfate (Atropine Sulfate 0.1 Mg/Ml 10ml Syr) Confirm Administered Dose 2 mg IV .STK-MED ONE Stop: 11/27/23 10:35 Last Admin: 11/27/23 11:18 Dose: 0.25 mg Documented By: TONY Calcium/Vitamin D (Calcium 600mg + Vit D 400 Iu Tab) 1 tab PO HS MICHELLE Stop: 12/26/23 20:59 Last Admin: 11/26/23 21:00 Dose: 1 tab Documented By: ADOLFO Dobutamine HCl (Dobutamine Hcl 12.5 Mg/Ml 20 Ml Vial) Confirm Administered Dose 250 mg IV .STK-MED ONE Stop: 11/27/23 10:35 Last Admin: 11/27/23 11:19 Dose: 1 dose Documented By: TONY Sodium Chloride (Nss) 1,000 mls @ 80 mls/hr IV .[id number] [facility] Stop: 11/27/23 04:59 Last Infusion: 11/27/23 06:07 Dose: Infused Documented By: Admin: 11/26/23 17:13 Dose: 80 mls/hr Documented By: SUKUMAR Metoprolol Tartrate (Metoprolol Tartrate 1 Mg/Ml Vial) Confirm Administered Dose 10 mg IV .K-MED ONE Stop: 11/27/23 10:35 Last Admin: 11/27/23 11:19 Dose: 2.5 mg Documented By: TONY Nitroglycerin (Nitroglycerin Sl 0.4 Mg/Tab Tab) Confirm Administered Dose 0.4 mg .ROUTE .[facility] ONE Stop: 11/27/23 10:36 Last Admin: 11/27/23 11:20 Dose: Not Given Documented By: TONY Tamsulosin HCl (Tamsulosin Hcl 0.4 Mg Cap) 0.4 mg PO QPM [facility] Stop: 12/26/23 20:59 Last Admin: 11/26/23 21:00 Dose: 0.4 mg Documented By: ADOLFO Imaging Data Radiologist's Impression: Chest/Abdomen X-ray 11/26/23 13:19 CHEST AND ABDOMEN 2 VIEWS HISTORY: nausea vomiting, chest pain COMPARISON: Chest 07/19/2022. Abdomen and pelvis CT 01/07/2021. FINDINGS: No pneumothorax. No pleural effusions. No focal lung consolidations to suggest a pneumonia. A few bibasilar linear densities favor subsegmental atelectasis. The cardiac silhouette is normal in size. This left shoulder prosthesis. No acute fractures identified within the chest. No pneumoperitoneum. No pneumatosis. Prior cholecystectomy. No renal or ureteral calculi. No dilated loops of bowel to suggest an obstruction. Moderate fecal retention is noted. Small round calcification within the left midabdomen corresponding to chronic mesenteric calcification. Therefore, this is benign. IMPRESSION: 1. No acute cardiopulmonary process. 2. No evidence for bowel obstruction. 3. Moderate fecal retention. ACT 112: Negative or not required by law. Electronically signed by: Javier Mendiola M.D. 11/26/2023 2:02 PM Discharge Plan Visit Data Chief Complaint: Cardiac Assessment Stated Complaint: CHEST PAIN, SHORTNESS OF BREATH ED Provider: To Mason Discharge Problem: Atypical chest pain, Abdominal pain, Nausea vomiting and diarrhea Patient Disposition: Admitted As Inpatient Condition: Good Discharge Instructions Interventions: ED Discharge Assessment Last Done: 11/26/23 16:41 Discharge Problem: Abdominal pain Qualifiers: Abdominal location: unspecified location Qualified Code(s): R10.9 - Unspecified abdominal pain
[2023-11-26 13:40] LABS: Basophils # (auto) 0.03 K/uL (0.00-0.20); Basophils % (auto) 0.3 %; Eosinophils # (auto) 0.04 K/uL (0.00-0.50); Eosinophils % (auto) 0.4 %; Hemoglobin 14.3 g/dl (14.0-18.0); Immature Granulocytes # (auto) 0.02 K/uL (0.01-0.20); Immature Granulocytes % (auto) 0.2 %; Lymphocytes # (auto) 0.56 K/uL (1.20-3.40); Lymphocytes % (auto) 5.8 %; Mean Corpuscular Hemoglobin 31.2 pg (25.0-34.0); Mean Corpuscular Hgb Conc 33.3 g/dL (32.0-36.0); Mean Corpuscular Volume 93.9 fL (80.0-100.0); Mean Platelet Volume 11.3 fL (9.4-12.4); Monocytes # (auto) 0.59 K/uL (0.11-0.59); Monocytes % (auto) 6.1 %; Neutrophils # (auto) 8.37 K/uL (1.40-6.50); Neutrophils % (auto) 87.2 %; Platelet Count 97 K/uL (130-400); RDW Coefficient of Variation 14.2 % (11.5-14.5); RDW Standard Deviation 48.6 fL (36.4-46.3); Red Blood Count 4.58 M/uL (4.70-6.10); White Blood Count 9.61 K/ul (4.8-10.8)
[2023-11-26 13:47] LABS: Albumin Globulin Ratio 1.7 (0.9-2); Albumin Level 4.3 gm/dl (3.4-5.0); BUN Creatinine Ratio 19.6 (10-20); Bilirubin,Total 1.7 mg/dl (0.2-1.0); Calcium 8.8 mg/dl (8.6-10.3); Creatinine Clr Calc Pharmacy 59.2 ml/min; Est GFR (African American) 77.9 ml/min; Est GFR (Non-African American) 67.2 ml/min; Globulin 2.5 gm/dl (2.5-4.0); Magnesium 1.7 mg/dl (1.7-2.4); Potassium 4.2 mmol/L (3.5-5.1); Total Protein 6.8 gm/dl (6.0-8.3)
--- NOTE | 2023-11-26 14:03 | XRay Report ---
CHEST AND ABDOMEN 2 VIEWS HISTORY: nausea vomiting, chest pain COMPARISON: Chest 07/19/2022. Abdomen and pelvis CT 01/07/2021. FINDINGS: No pneumothorax. No pleural effusions. No focal lung consolidations to suggest a pneumonia. A few bibasilar linear densities favor subsegmental atelectasis. The cardiac silhouette is normal in size. This left shoulder prosthesis. No acute fractures identified within the chest. No pneumoperito neum. No pneumatosis. Prior cholecystectomy. No renal or ureteral calculi. No dilated loops of bowel to suggest an obstruction. Moderate fecal retention is noted. Small round calcification within the le ft midabdomen corresponding to chronic mesenteric calcification. Therefore, this is benign. IMPRESSION: 1. No acute cardiopulmonary process. 2. No evidence for bowel obstruction. 3. Moderate fecal retention. ACT 112: Negative or not required by law. Electronically signed by: Javier Mendiola M.D. 11/26/2023 2:02 PM
--- NOTE | 2023-11-26 16:00 | History & Physical Report ---
Date of Service November 26, 2023 Assessment & Plan (1) Coronary artery disease: (2) Atypical chest pain: Plan: - Admit to med tele for r/o - Trend cardiac biomarkers, initial set was negative - EKG reviewed as above showing ST wave inversion but are present on previous EKG - Check 2 D echo - last was in Aug 2023 with LVEF of 60-64% at that time, no WMA, no pulm htn, aortic valve moderately calcified, mild aortic valve stenosis, AA mildly enlarged at 3.9 cm. - defer limited echo or repeat to cardiology - If negative enzymes can consider a stress test tomorrow morning. 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 Status post single dose of Cytoxan on 06/13/2022. Seems to be stable as per hem/onc notes , Dr. Veronica. DVT ppx: teds, scds Lines: 1 PIV FEN/GI: HH diet, n.p.o. at midnight in case needs for stress test CODE: Full code Dispo: From home, likely to remain in the hospital x 1-2 days A total of 75 minutes were spent with greater than 50% of that time face to face with the patient, personally reviewing all current laboratories, imaging studies, past medication reconciliation, outpatient chart review, and discussion with specialists to collaborate care for the patient with attending. Please see attending documentation for corrections and/or additions. History of Present Illness Chief Complaint: Right-sided chest pain Primary Care Provider: Frederick Ortiz MD This is an 82-year-old male with PMHx of CAD, anemia, MDS, thrombocytopenia who presents to the hospital with atypical chest pain. Patient notes that he had bout of abdominal pain this morning followed by and explosive bowel movement around 3:30a, then again 2 more times. He was also nauseous and vomited 3 times this morning. Pt felt very weak and tried to fall asleep again. He woke up having a right sided chest pressure/wave like sensation go into his right arm and up in his R jaw. Pt admits to having shortness of breath at this time and this prompted him to come to the hospital. He had a outpatient stress test [facility] Samantha Robison a few weeks ago and reports that it was negative. He follows with cardiology as an outpatient. Patient's is present with him at bedside and supports the history. 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 Pt denies smoking, alcohol use, or other illicit drug use. Surgical hx: s/p cholecystectomy Allergies Allergy/AdvReac Type Severity Reaction Status Date / Time tramadol AdvReac Intermediate NAUSEA Verified 11/26/23 15:03 Home Medications Medication Instructions Recorded Confirmed Type amlodipine 5 mg tablet 5 mg PO QPM 12/31/20 11/26/23 History aspirin 81 mg tablet,delayed 81 mg PO QPM 12/31/20 11/26/23 History release atorvastatin 20 mg tablet 20 mg PO QPM /10/1811/26/23 History calcium carbonate 600 mg-vitamin 1 tab PO QPM 12/31/20 11/26/23 History D3 10 mcg (400 unit) tablet (Calcium 600 + D(3)) garlic 1,000 mg capsule 1,000 mg PO QPM 12/31/20 11/26/23 History omega 5-azu-gir-fish oil 1,000 mg 1 cap PO QPM 12/31/20 11/26/23 History (120 mg-180 mg) capsule (Fish Oil) tamsulosin 0.4 mg capsule 0.4 mg PO QPM 05/20/22 11/26/23 History Past Med/Surg History Medical History (Updated 11/27/23 @ 11:27 by Cherrie Cope PA-C) Osteoarthritis Enlarged prostate Hearing deficit BL REINOSO Poor historian MDS (myelodysplastic syndrome) Coronary artery disease follows with [facility] cardio Leukemia dx'd 2013 -- pt unable to recall treatment Hypertension Hyperlipidemia Allergic reaction Surgical History History of right cataract surgery History of tonsillectomy History of tooth extraction History of left shoulder replacement H/O colonoscopy S/P laparoscopic cholecystectomy (01/02/21) Laparoscopic Cholecystectomy with cholangiogram - Valeriano Martinez MD, FACS History of cardiac catheterization [place] 20 years ago -- unable to recall stent placement? Family History Other No family history of adverse response to anesthesia Social History Smoking Status: Never smoker Second Hand Exposure: No; Do You Dip or Chew Tobacco: No; Hx Alcohol Use: No Hx Substance Use: No Preferred Language: Turkish Communication Ability: Effective Airconditioning Engineer Required: No Beliefs That Will Affect Care: None marital status: Current Living Situation: Spouse and Family Current Living Situation Comment: lives with , son/DIL and grandkids live next door current occupational status: retired How many Children do You have: 1 Other Information That Helps Us Care for You: No Feels Safe at Home: Yes Safety Concerns: Feels Safe At This Time during the past year weight has: decreased > 10 lbs Assistive Devices: Denture - Upper, Denture - Lower, Glasses and Hearing Aid - Bilateral Review of Systems Review of Systems: Constitutional: No fever, sweats or chills, + weakness, generalized malaise Eyes: No diplopia, no worsening or blurred vision ENT: normal hearing, no trouble swallowing Respiratory: No cough, sputum, dyspnea at rest or on exertion Cardiovascular: + as per HPI. Abdomen: As per HPI, + LLQ pain, nausea, vomiting, diarrhea o Musculoskeletal: No joint pain, calf pain, +lower extremity swelling Neurologic: No focal weakness, numbness/tingling, or balance problems Psychiatric: No anxiety or depression Skin: No rash or itch Physical Exam Physical Exam: General: awake, alert, no apparent distress, elderly white male Head: Normocephalic, atraumatic ENT: PERRL, EOMI, no pharyngeal exudate, mucous membranes moist Chest: Clear to auscultation, + pain with chest wall palpation bilaterally, on room air, no adventitious breath sounds Cardiac: Regular rate and rhythm, + loud systolic murmur with radiation to carotids, no JVD, normal peripheral pulses, good capillary refill Abdominal: NABS x 4 quadrants, soft, nondistended, + tender to LLQ, no rebound or guarding Extremities: Normal inspection, + trace peripheral edema, no erythema, calfs nontender to palpation Psych: Normal mood and affect Neuro: AAO x 3, strength intact bilaterally and rated 5/5, no motor deficits, speech is clear, no peripheral sensory deficits Results & Data Results & Data Vital Signs (Past 12 Hours) Vital Signs Temp Pulse Pulse Resp BP BP Pulse Ox 11/26/23 15:00 65 18 128/67 94 11/26/23 13:56 70 20 134/65 95 11/26/23 13:22 70 11/26/23 13:18 94 11/26/23 13:18 68 20 130/76 94 11/26/23 13:18 94 11/26/23 12:42 36.7 C 81 18 125/80 91 O2 Del Method 11/26/23 15:00 Room Air 11/26/23 13:56 Room Air 11/26/23 13:22 11/26/23 13:18 Room Air 11/26/23 13:18 Room Air 11/26/23 13:18 Room Air 11/26/23 12:42 Room Air Laboratory Results 11/26/23 12:55 WBC 9.61 RBC 4.58 L Hgb 14.3 Hct 43.0 MCV 93.9 MCH 31.2 MCHC 33.3 RDW Std Deviation 48.6 H RDW Coeff of Marisela 14.2 Plt Count 97 L MPV 11.3 Immature Gran % (Auto) 0.2 Neut % (Auto) 87.2 Lymph % (Auto) 5.8 Wilson % (Auto) 6.1 Eos % (Auto) 0.4 Baso % (Auto) 0.3 Neut # (Auto) 8.37 H Lymph # (Auto) 0.56 L Wilson # (Auto) 0.59 Eos # (Auto) 0.04 Baso # (Auto) 0.03 Immature Gran # (Auto) 0.02 Sodium 140 Potassium 4.2 Chloride 108 H Carbon Dioxide 24 Anion Gap 8 BUN 20 Creatinine 1.02 Est Cr Clr Drug Dosing 59.2 Est GFR ( Amer) 77.9 Est GFR (Non-Af Amer) 67.2 BUN/Creatinine Ratio 19.6 Glucose 104 H Calcium 8.8 Magnesium 1.7 Total Bilirubin 1.7 H AST 17 ALT 11 Alkaline Phosphatase 78 Troponin I High Sens 3.0 Total Protein 6.8 Albumin 4.3 Globulin 2.5 Albumin/Globulin Ratio 1.7 Lipase 10 L Diagnostic Findings Chest/Abdomen X-ray 11/26/23 13:19 CHEST AND ABDOMEN 2 VIEWS HISTORY: nausea vomiting, chest pain COMPARISON: Chest 07/19/2022. Abdomen and pelvis CT 01/07/2021. FINDINGS: No pneumothorax. No pleural effusions. No focal lung consolidations to suggest a pneumonia. A few bibasilar linear densities favor subsegmental atelectasis. The cardiac silhouette is normal in size. This left shoulder prosthesis. No acute fractures identified within the chest. No pneumoperitoneum. No pneumatosis. Prior cholecystectomy. No renal or ureteral calculi. No dilated loops of bowel to suggest an obstruction. Moderate fecal retention is noted. Small round calcification within the left midabdomen corresponding to chronic mesenteric calcification. Therefore, this is benign. IMPRESSION: 1. No acute cardiopulmonary process. 2. No evidence for bowel obstruction. 3. Moderate fecal retention. ACT 112: Negative or not required by law. Electronically signed by: Javier Mendiola M.D. 11/26/2023 2:02 PM ECG Additional Comments: 26-NOV-2023 12:51:06 [facility]-EDSTAT ROUTINE RETRIEVAL Sinus rhythm with marked sinus arrhythmia ST & T wave abnormality, consider lateral ischemia Abnormal ECG When compared with ECG of 22-JUL-2022 06:48, QT has shortened 25mm/s10mm/[id number] 243CID: 22Unconfirmed Vent. rate 75 BPM MS interval 114 ms QRS duration 90 ms QT/QTc 352/393 ms Code Status & VTE Plan Code Status Full code - discussed with pt at bedside Supervising Physician Co-Signing Physician Notes Attending addendum; The patient was seen and examined in emergency room in presence of the family member He has been complaining of diarrhea for about 7 to 10 days with explosive diarrhea earlier this morning associated with nausea and vomiting Complaint to have lower center chest pain across the chest wall with radiation to the neck and also jaw area and associated with shortness of breath following that episode Complaint to have sweating as well and the condition lasted for about an hour He does not have any chest pain during my examination On examination Looks anxious but otherwise hemodynamically stable with blood pressure on the lower side Chest-clear to auscultate bilaterally Heart-S1-S2, regular Abdomen-benign, bowel sound present Extremities-trace edema with more on the right than the left MANAGER ORGANIZATIONAL-alert, awake and oriented x 3 His admission labs, imaging studies and EKG reviewed No significant change in troponin and no EKG to qualify ACS but will do serial cardiac enzymes and echocardiogram History of CAD and required long recovery following a treadmill that was done few years back Explosive diarrhea with vomiting-will check stool for C. difficile and other culture Will give a small amount of intravenous fluid Given the symptoms and history of CAD will get a cardiology evaluation Given n.p.o. in the morning for possible dobutamine stress echo Agree with assessment and plan as outlined above by Rochelle Farooq
[2023-11-26] MEDS: SODIUM CHLORIDE 0.9% 1,000 ML IV SCH (17:13)
[2023-11-26] MEDS ORDERED: ACETAMINOPHEN 325 MG TAB PO PRN (17:29)
[2023-11-26] MEDS ORDERED: ONDANSETRON INJ 2 MG/ML 2 ML VIAL IV PRN (17:29)
[2023-11-26] MEDS: ACETAMINOPHEN 500 MG TAB PO STA (17:34)
[2023-11-26] MEDS: TAMSULOSIN HCL 0.4 MG CAP PO SCH (21:00)
[2023-11-26] MEDS: CALCIUM 600MG + VIT D 400 IU TAB PO SCH (21:00)
[2023-11-26] MEDS: ASPIRIN 81 MG ECTAB PO SCH (21:00)
[2023-11-26] MEDS: ATORVASTATIN 20 MG TAB PO SCH (21:00)
[2023-11-26] MEDS: amLODIPine BESYLATE 5 MG TAB PO SCH (21:01)
[2023-11-27 06:19] LABS: Hematocrit (blood only) 36.4 % (42.0-52.0); Hemoglobin 12.3 g/dl (14.0-18.0); Mean Corpuscular Hemoglobin 32.1 pg (25.0-34.0); Mean Corpuscular Hgb Conc 33.8 g/dL (32.0-36.0); Platelet Count 83 K/uL (130-400); RDW Coefficient of Variation 14.4 % (11.5-14.5); Red Blood Count 3.83 M/uL (4.70-6.10)
[2023-11-27 06:34] LABS: BUN Creatinine Ratio 18.9 (10-20); Creatinine Clr Calc Pharmacy 63.5 ml/min; Est GFR (African American) 84.9 ml/min; Est GFR (Non-African American) 73.2 ml/min
[2023-11-27 07:27] LABS: Estimated Average Glucose 100 mg/dl; Hemoglobin A1C 5.1 % (4.5-5.6)
--- NOTE | 2023-11-27 08:38 | Cardiology Consultation ---
Date of Consultation November 27, 2023 Assessment & Plan (1) Atypical chest pain: (2) Coronary artery disease: (3) Dyslipidemia, goal LDL below 70: Plan Patient admitted after several hours of diarrhea and vomiting, then developing this chest "discomfort" radiating to right shoulder and right neck/jaw. EKG on arrival with T wave inversions in anterolateral leads, similar to past tracings dating back to 2020. HS troponin negative x3 since admission. Echo with preserved LVEF, aortic sclerosis without significant stenosis. Patient had one recurrent episode lasting 5 minutes this morning. Recommend proceeding with dobutamine stress echocardiogram this morning to r/o inducible ischemia. He is not able to ambulate on a treadmill, therefore pharmacologic stress testing is warranted. Patient agreeable to the plan. Continue home dose amlodipine for HTN. BP currently controlled. Continue ASA, statin for history of non obstructive CAD. Further recommendations pending dobutamine stress echo results. Case discussed with Dr. Ye I spent a total of 60 minutes on the date of service in preparation, delivery, and documentation of the care provided to this patient, excluding any time spent in the performance of separately billed services. Cherrie Cope PA-C Department of Cardiology, [facility] This chart was completed in part utilizing Speech Voice Recognition Software. Grammatical errors, random word insertions, pronoun errors, and incomplete sente nces are an occasional consequence of this system due to software limitations, ambient noise, and hardware issues. Any formal questions or concerns about the content, text, or information contained within the body of this dictation should be directly addressed to the provider for clarification. Supervising Physician Co-Signing Physician Notes I have reviewed the advance practitioner's documentation, and I agree with, and take responsibility for the plan of care. 82-year-old male present to the emergency department with chest discomfort. Describes a "wave of discomfort" across his chest down his right arm and up into his jaw. Discomfort occurred at rest. Denies any exertional chest pain or unusual shortness of breath. No lightheadedness, dizziness, syncope, or near syncope. PE: VSS. Gen: NAD, AAO x3. Heart: Regular rhythm, normal S1-S2. 1/6 systolic ejection murmur. Lungs: Clear bilateral, no rales, rhonchi, wheeze. Ext: No edema. A/P: 82-year-old male with atypical chest discomfort. Cardiac enzymes within normal limits. ECG with diffuse T wave abnormality, unchanged from previous. Currently pain-free. Recommend further evaluation with a pharmacologic, dobutamine stress echo. Patient agreeable. Addendum: Dobutamine stress echo negative for inducible ischemia. Patient discomfort noncardiac. No further inpatient cardiac testing or intervention recommended at this time. Routine follow-up as scheduled. Cardiology will sign off. Please call with additional concerns/questions. History of Present Illness Reason for Consultation: Chest pain Requesting Physician: Ms. Lore Paula Attending Physician: Dr. Ye History of Present Illness Patient is a 82 year old male known to [facility] Cardiology - History includes: 1. Coronary artery disease, history of remote cardiac catheterization in 2001 with moderate narrowing of mid LAD Negative nuclear stress 12/29/2020 2. Dyslipidemia, LDL goal below 70 3. Hypertension 4. Mild aortic stenosis 5. 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 Status post cholecystectomy in December of 2020 7. Sinus bradycardia Patient reports not feeling well starting yesterday morning when he was awakened with GI upset with significant diarrhea and several episodes of vomiting. Several hours later, patient was resting in his recliner and noted his feet began to swell. He then became acutely short of breath with this sensation of a "wave" coming across his chest, into his right shoulder and arm and into his right side of his neck and jaw. Symptoms lasted about 30 minutes and he decided to come to the ER for evaluation. Upon arrival to the ER, he says this sensation went away spontaneously. EKG on arrival demonstrated normal sinus rhythm with T wave inversions in anterior and lateral leads. When compared with prior EKG in the outpatient setting, similar findings were noted dating back several years. High-sensitivity troponin negative x 3 since admission. Resting echo with preserved LVEF, aortic sclerosis without significant stenosis. Chest x was unremarkable. At time of consult, patient resting in bed comfortably. He reports he had one recurrent episode of this "wave" coming across his chest during his echo this morning. Lasted about 5 minutes. No arrhythmias on telemetry. BP remains controlled. Allergies Allergy/AdvReac Type Severity Reaction Status Date / Time tramadol AdvReac Intermediate NAUSEA Verified 11/26/23 15:03 Home Medications Medication Instructions Recorded Confirmed Type amlodipine 5 mg tablet 5 mg PO QPM 12/31/20 11/26/23 History aspirin 81 mg tablet,delayed 81 mg PO QPM 12/31/20 11/26/23 History release atorvastatin 20 mg tablet 20 mg PO QPM 12/31/20 11/26/23 History calcium carbonate 600 mg-vitamin 1 tab PO QPM 12/31/20 11/26/23 History D3 10 mcg (400 unit) tablet (Calcium 600 + D(3)) garlic 1,000 mg capsule 1,000 mg PO QPM 12/31/20 11/26/23 History omega 0-umy-wif-fish oil 1,000 mg 1 cap PO QPM 12/31/20 11/26/23 History (120 mg-180 mg) capsule (Fish Oil) tamsulosin 0.4 mg capsule 0.4 mg PO QPM 05/20/22 11/26/23 History Patient History Medical History (Updated 11/27/23 @ 11:27 by Cherrie Cope PA-C) Osteoarthritis Enlarged prostate Hearing deficit BL REINOSO Poor historian MDS (myelodysplastic syndrome) Coronary artery disease follows with [facility] cardio Leukemia dx'd 2013 -- pt unable to recall treatment Hypertension Hyperlipidemia Allergic reaction Surgical History History of right cataract surgery History of tonsillectomy History of tooth extraction History of left shoulder replacement H/O colonoscopy S/P laparoscopic cholecystectomy (01/02/21) Laparoscopic Cholecystectomy with cholangiogram - Valeriano Martinez MD, FACS History of cardiac catheterization [place] 20 years ago -- unable to recall stent placement? Family History Other No family history of adverse response to anesthesia Social History Smoking Status: Never smoker Second Hand Exposure: No; Do You Dip or Chew Tobacco: No; Hx Alcohol Use: No Hx Substance Use: No Preferred Language: Mongolian Communication Ability: Effective Supervisor [employer] Required: No Beliefs That Will Affect Care: None marital status: Current Living Situation: Spouse and Family Current Living Situation Comment: lives with , son/DIL and grandkids live next door current occupational status: retired How many Children do You have: 1 Other Information That Helps Us Care for You: No Feels Safe at Home: Yes Safety Concerns: Feels Safe At This Time during the past year weight has: decreased > 10 lbs Assistive Devices: Denture - Upper, Denture - Lower, Glasses and Hearing Aid - Bilateral Review of Systems Review of Systems: All systems reviewed & are unremarkable except as noted in HPI & below Physical Exam Constitutional: WD/WN, vitals as above well developed Neck: normal visual inspection Respiratory: normal respiratory effort Auscultation: no crackles and no rales Cardiovascular: Rate/Rhythm: regular rate and regular rhythm Heart Sounds: + murmur (II/ systolic murmur LSB) Vessels: no JVD Extremities: no edema Gastrointestinal (Abdomen): normal bowel sounds, soft, nontender, no hepatosplenomegaly Skin: no rashes, warm and dry Neurologic: PERRL, EOMI, accommodation nl, no face palsy, no dysarthria Psychiatric: A+Ox3, euthymic affect Results & Data Vital Signs (Past 12 Hours) Vital Signs Temp Pulse Pulse Pulse Resp BP Pulse Ox 11/27/23 08:08 36.8 C 53 L 16 130/53 L 95 11/27/23 07:13 11/27/23 07:07 50 L 11/27/23 02:58 36.5 C 47 L 18 127/64 94 11/27/23 01:01 48 L 11/26/23 23:10 36.5 C 49 L 18 126/66 96 O2 Del Method 11/27/23 08:08 Room Air 11/27/23 07:13 Room Air 11/27/23 07:07 11/27/23 02:58 Room Air 11/27/23 01:01 11/26/23 23:10 Room Air Laboratory Results Cardiac Enzymes 11/26/23 11/26/23 11/26/23 Range/Units 12:55 16:55 22:18 AST 17 (13-39) U/L Troponin I High Sens 3.0 3.3 3.6 (0-20) pg/ml Lipids 11/27/23 Range/Units 05:55 Triglycerides 51 (0-150) mg/dl Cholesterol 89 (0-200) mg/dl HDL Cholesterol 45 mg/dl Cholesterol/HDL Ratio 2.0 (0-5) CBC 11/26/23 11/27/23 Range/Units 12:55 05:55 WBC 9.61 5.00 (4.8-10.8) K/ul RBC 4.58 L 3.83 L (4.70-6.10) M/uL Hgb 14.3 12.3 L (14.0-18.0) g/dl Hct 43.0 36.4 L (42.0-52.0) % Plt Count 97 L 83 L (130-400) K/uL Neut # (Auto) 8.37 H (1.40-6.50) K/uL Lymph # (Auto) 0.56 L (1.20-3.40) K/uL [place] # (Auto) 0.59 (0.11-0.59) K/uL Eos # (Auto) 0.04 (0.00-0.50) K/uL Baso # (Auto) 0.03 (0.00-0.20) K/uL Comprehensive Metabolic Panel 11/26/23 11/27/23 Range/Units 12:55 05:55 Sodium 140 139 (136-145) mmol/L Potassium 4.2 4.0 (3.5-5.1) mmol/L Chloride 108 H 109 H (98-107) mmol/L Carbon Dioxide 24 26 (21-32) mmol/L BUN 20 18 (6-23) mg/dl Creatinine 1.02 0.95 (0.6-1.4) mg/dl Glucose 104 H 93 (70-99(Fasting)) mg/dl Calcium 8.8 8.0 L (8.6-10.3) mg/dl AST 17 (13-39) U/L ALT 11 (7-52) U/L Alkaline Phosphatase 78 (34-104) U/L Total Protein 6.8 (6.0-8.3) gm/dl Albumin 4.3 (3.4-5.0) gm/dl Intake and Output 11/26/23 11/27/23 11/27/23 22:59 06:59 14:59 Intake Total 1420 / 1420 Balance 1420 / 1420 Intake: IV 1000 / 1000 Sodium Chloride 0.9% 1,000 ml @ 1000 / 1000 80 mls/hr IV .[id number] [facility] Rx#: [id number] Oral 420 / 420 Other: Other Intake Source NPO Weight 86.455 kg Weight Measurement Method Built in [facility] Diagnostic Findings Telemetry reviewed: NSR in the 50-60's. Dipped into the 40's overnight. Rare PAC's. No arrhythmias. EKG reviewed: NSR with sinus arrhythmia T wave abnormality in anterior and lateral leads Compared with prior EKG's, T wave inversions are similar Echo reviewed: Compared with prior study, no significant changes noted. LVEF at 60-65% Mild concentric LVH Moderate aortic valve sclerosis without stenosis Mild MR Grade I diastolic dysfunction Chest/Abdomen X-ray 11/26/23 13:19 CHEST AND ABDOMEN 2 VIEWS HISTORY: nausea vomiting, chest pain COMPARISON: Chest 07/19/2022. Abdomen and pelvis CT 01/07/2021. FINDINGS: No pneumothorax. No pleural effusions. No focal lung consolidations to suggest a pneumonia. A few bibasilar linear densities favor subsegmental atelectasis. The cardiac silhouette is normal in size. This left shoulder prosthesis. No acute fractures identified within the chest. No pneumoperitoneum. No pneumatosis. Prior cholecystectomy. No renal or ureteral calculi. No dilated loops of bowel to suggest an obstruction. Moderate fecal retention is noted. Small round calcification within the left midabdomen corresponding to chronic mesenteric calcification. Therefore, this is benign. IMPRESSION: 1. No acute cardiopulmonary process. 2. No evidence for bowel obstruction. 3. Moderate fecal retention. ACT 112: Negative or not required by law. Electronically signed by: Javier Mendiola M.D. 11/26/2023 2:02 PM Medications Administered Current Inpatient Medications Acetaminophen (Acetaminophen 325 Mg Tab) 650 mg PO Q4H PRN PRN Reason: Moderate Pain (Scale 4, 5, 6) Stop: 12/26/23 17:28 Amlodipine Besylate (Amlodipine Besylate 5 Mg Tab) 5 mg PO QPM [facility] Stop: 12/26/23 20:59 Last Admin: 11/26/23 21:01 Dose: 5 mg Aspirin (Aspirin 81 Mg Ectab) 81 mg PO QPM [facility] Stop: 12/26/23 20:59 Last Admin: 11/26/23 21:00 Dose: 81 mg Atorvastatin Calcium (Atorvastatin 20 Mg Tab) 20 mg PO QPM [facility] Stop: 12/26/23 20:59 Last Admin: 11/26/23 21:00 Dose: 20 mg Calcium/Vitamin D (Calcium 600mg + Vit D 400 Iu Tab) 1 tab PO HS [facility] Stop: 12/26/23 20:59 Last Admin: 11/26/23 21:00 Dose: 1 tab Ondansetron HCl (Ondansetron Inj 2 Mg/Ml 2 Ml Vial) 4 mg IV Q4H PRN PRN Reason: Nausea And Vomiting Stop: 12/26/23 17:28 Tamsulosin HCl (Tamsulosin Hcl 0.4 Mg Cap) 0.4 mg PO QPM [facility] Stop: 12/26/23 20:59 Last Admin: 11/26/23 21:00 Dose: 0.4 mg
--- NOTE | 2023-11-27 08:47 | Electrocardiogram Report ---
Test Reason : Blood Pressure : / mmHG Vent. Rate : 075 BPM Atrial Rate : 075 BPM P-R Int : 114 ms QRS Dur : 090 ms QT Int : 352 ms P-R-T Axes : 027 000 -43 degrees QTc Int : 393 ms Sinus rhythm with marked sinus arrhythmia Abnormal ECG When compared with ECG of 22-JUL-2022 06:48, QT has shortened Confirmed by Rupert Mujica ([id number]) on 11/27/2023 8:46:41 AM Referred By: Confirmed By:Rupert Mujica
[2023-11-27] MEDS: ATROPINE SULFATE 0.1 MG/ML 10ML SYR IV ONE (11:18)
[2023-11-27] MEDS: DOBUTamine HCL 12.5 MG/ML 20 ML VIAL IV ONE (11:19)
[2023-11-27] MEDS: METOPROLOL TARTRATE 1 MG/ML VIAL IV ONE (11:19)
[2023-11-27] MEDS: NITROGLYCERIN SL 0.4 MG/TAB TAB ONE (11:20)
--- NOTE | 2023-11-27 12:29 | Hospitalist Progress Note ---
Date of Service November 27, 2023 Assessment & Plan (1) Coronary artery disease: (2) Atypical chest pain: Plan: - Admit to [facility] for r/o - Trend cardiac biomarkers, initial set was negative - EKG reviewed as above showing ST wave inversion but are present on previous EKG - Check 2 D echo - last was in Aug 2023 with LVEF of 60-64% at that time, no WMA, no pulm htn, aortic valve moderately calcified, mild aortic valve stenosis, AA mildly enlarged at 3.9 cm. - defer limited echo or repeat to cardiology - If negative enzymes can consider a stress test tomorrow morning. - Consult cardiology with pts hx of known CAD - PT/OT consulted-does not need to have PT and OT he has been ambulant and he refused to have evaluate -No evidence of ACS -Echo of the heart showed LV ejection fraction 60 to 65%, there is mild concentric LVH, there is moderate aortic valve sclerosis without stenosis, there is mild mitral regurgitation and grade 1 diastolic dysfunction -Appreciate cardiology input and recommendation -Status post dobutamine stress echo and came back negative for any ischemic changes -He will be discharged home this afternoon Diarrhea Has been going on for about 1 week off-and-on No more diarrhea in the hospital No abdominal pain. No nausea or vomiting. 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 Status post single dose of Cytoxan on 06/13/2022. Seems to be stable as per hem/onc notes , Dr. Veronica. -Hemoglobin remained stable at 12.3 -Advised to give appointment with Dr. Neely the [employer] oncologist as an outpatient DVT ppx: teds, scds Lines: 1 PIV FEN/GI: HH diet, n.p.o. at midnight in case needs for stress test CODE: Full code Will be discharged home this afternoon Admission and Anticipated Discharge Date Admission Date: November 26, 2023 Subjective 11/27/2023 The patient was seen and examined in medical telemetry unit He did not have any more diarrhea while in the hospital No more chest pain or palpitation No evidence of ACS by examination and test Dobutamine stress echo came back negative for any ischemic changes Will be discharged home this afternoon Review of Systems Review of Systems: All systems reviewed and are unremarkable except as noted below Respiratory: No shortness of breath at rest Cardiovascular: Additional Comments: No chest pain and/or palpitation Physical Exam Physical Exam: General: awake, alert, no apparent distress, elderly white male Head: Normocephalic, atraumatic ENT: PERRL, EOMI, no pharyngeal exudate, mucous membranes moist Chest: Clear to auscultation, + pain with chest wall palpation bilaterally, on room air, no adventitious breath sounds Cardiac: Regular rate and rhythm, + loud systolic murmur with radiation to carotids, no JVD, normal peripheral pulses, good capillary refill Abdominal: NABS x 4 quadrants, soft, nondistended, + tender to LLQ, no rebound or guarding Extremities: Normal inspection, + trace peripheral edema, no erythema, calfs nontender to palpation Psych: Normal mood and affect Neuro: AAO x 3, strength intact bilaterally and rated 5/5, no motor deficits, speech is clear, no peripheral sensory deficits Results & Data Results & Data Vital Signs (Past 12 Hours) Vital Signs Temp Pulse Pulse Pulse Resp BP Pulse Ox 11/27/23 08:08 36.8 C 53 L 16 130/53 L 95 11/27/23 07:13 11/27/23 07:07 50 L 11/27/23 02:58 36.5 C 47 L 18 127/64 94 11/27/23 01:01 48 L O2 Del Method 11/27/23 08:08 Room Air 11/27/23 07:13 Room Air 11/27/23 07:07 11/27/23 02:58 Room Air 11/27/23 01:01 Laboratory Results Short CBC 11/26/23 11/27/23 Range/Units 12:55 05:55 WBC 9.61 5.00 (4.8-10.8) K/ul Hgb 14.3 12.3 L (14.0-18.0) g/dl Hct 43.0 36.4 L (42.0-52.0) % Plt Count 97 L 83 L (130-400) K/uL BMP 11/26/23 11/27/23 12:55 05:55 Sodium 140 139 Potassium 4.2 4.0 Chloride 108 H 109 H Carbon Dioxide 24 26 BUN 20 18 Creatinine 1.02 0.95 Glucose 104 H 93 Calcium 8.8 8.0 L Liver Function 11/26/23 Range/Units 12:55 Total Bilirubin 1.7 H (0.2-1.0) mg/dl AST 17 (13-39) U/L ALT 11 (7-52) U/L Alkaline Phosphatase 78 (34-104) U/L Albumin 4.3 (3.4-5.0) gm/dl Medications Administered Current Inpatient Medications Acetaminophen (Acetaminophen 325 Mg Tab) 650 mg PO Q4H PRN PRN Reason: Moderate Pain (Scale 4, 5, 6) Stop: 12/26/23 17:28 Amlodipine Besylate (Amlodipine Besylate 5 Mg Tab) 5 mg PO QPM [facility] Stop: 12/26/23 20:59 Last Admin: 11/26/23 21:01 Dose: 5 mg Aspirin (Aspirin 81 Mg Ectab) 81 mg PO QPM [facility] Stop: 12/26/23 20:59 Last Admin: 11/26/23 21:00 Dose: 81 mg Atorvastatin Calcium (Atorvastatin 20 Mg Tab) 20 mg PO QPM [facility] Stop: 12/26/23 20:59 Last Admin: 11/26/23 21:00 Dose: 20 mg Calcium/Vitamin D (Calcium 600mg + Vit D 400 Iu Tab) 1 tab PO HS [facility] Stop: 12/26/23 20:59 Last Admin: 11/26/23 21:00 Dose: 1 tab Ondansetron HCl (Ondansetron Inj 2 Mg/Ml 2 Ml Vial) 4 mg IV Q4H PRN PRN Reason: Nausea And Vomiting Stop: 12/26/23 17:28 Tamsulosin HCl (Tamsulosin Hcl 0.4 Mg Cap) 0.4 mg PO QPM [facility] Stop: 12/26/23 20:59 Last Admin: 11/26/23 21:00 Dose: 0.4 mg
--- NOTE | 2023-11-28 08:33 | Discharge Summary ---
Date of Service November 27, 2023 Admission HPI Per Admitting Provider This is an 82-year-old male with PMHx of CAD, anemia, MDS, thrombocytopenia who presents to the hospital with atypical chest pain. Patient notes that he had bout of abdominal pain this morning followed by and explosive bowel movement around 3:30a, then again 2 more times. He was also nauseous and vomited 3 times this morning. Pt felt very weak and tried to fall asleep again. He woke up having a right sided chest pressure/wave like sensation go into his right arm and up in his R jaw. Pt admits to having shortness of breath at this time and this prompted him to come to the hospital. He had a outpatient stress test [facility] Samantha Robison a few weeks ago and reports that it was negative. He follows with cardiology as an outpatient. Patient's is present with him at bedside and supports the history. 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 Pt denies smoking, alcohol use, or other illicit drug use. Surgical hx: s/p cholecystectomy Admission Exam Per Admitting Provider Physical Exam: General: awake, alert, no apparent distress, elderly white male Head: Normocephalic, atraumatic ENT: PERRL, EOMI, no pharyngeal exudate, mucous membranes moist Chest: Clear to auscultation, + pain with chest wall palpation bilaterally, on room air, no adventitious breath sounds Cardiac: Regular rate and rhythm, + loud systolic murmur with radiation to carotids, no JVD, normal peripheral pulses, good capillary refill Abdominal: NABS x 4 quadrants, soft, nondistended, + tender to LLQ, no rebound or guarding Extremities: Normal inspection, + trace peripheral edema, no erythema, calfs nontender to palpation Psych: Normal mood and affect Neuro: AAO x 3, strength intact bilaterally and rated 5/5, no motor deficits, speech is clear, no peripheral sensory deficits Principal Diagnosis Atypical chest pain, status post negative DSE Discharge Exam General: awake, alert, no apparent distress, elderly white male Head: Normocephalic, atraumatic ENT: PERRL, EOMI, no pharyngeal exudate, mucous membranes moist Chest: Clear to auscultation, + pain with chest wall palpation bilaterally, on room air, no adventitious breath sounds Cardiac: Regular rate and rhythm, + loud systolic murmur with radiation to carotids, no JVD, normal peripheral pulses, good capillary refill Abdominal: NABS x 4 quadrants, soft, nondistended, + tender to LLQ, no rebound or guarding Extremities: Normal inspection, + trace peripheral edema, no erythema, calfs nontender to palpation Psych: Normal mood and affect Neuro: AAO x 3, strength intact bilaterally and rated 5/5, no motor deficits, speech is clear, no peripheral sensory deficits Discharge Data Allergies Allergy/AdvReac Type Severity Reaction Status Date / Time tramadol AdvReac Intermediate NAUSEA Verified 11/26/23 15:03 Consultations 11/26/23 16:55 Consult Cardiology Routine 11/26/23 17:48 ED Decision to Admit Stat Hospital Course (1) Coronary artery disease: (2) Atypical chest pain: - Admit to [facility] for r/o - Trend cardiac biomarkers, initial set was negative - EKG reviewed as above showing ST wave inversion but are present on previous EKG - Check 2 D echo - last was in Aug 2023 with LVEF of 60-64% at that time, no WMA, no pulm htn, aortic valve moderately calcified, mild aortic valve stenosis, AA mildly enlarged at 3.9 cm. - defer limited echo or repeat to cardiology - If negative enzymes can consider a stress test tomorrow morning. - Consult cardiology with pts hx of known CAD - PT/OT consulted-does not need to have PT and OT he has been ambulant and he refused to have evaluate -No evidence of ACS -Echo of the heart showed LV ejection fraction 60 to 65%, there is mild concentric LVH, there is moderate aortic valve sclerosis without stenosis, there is mild mitral regurgitation and grade 1 diastolic dysfunction -Appreciate cardiology input and recommendation -Status post dobutamine stress echo and came back negative for any ischemic changes -He will be discharged home this afternoon Diarrhea Has been going on for about 1 week off-and-on No more diarrhea in the hospital No abdominal pain. No nausea or vomiting. 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 Status post single dose of Cytoxan on 06/13/2022. Seems to be stable as per hem/onc notes , Dr. Veronica. -Hemoglobin remained stable at 12.3 -Advised to give appointment with Dr. Neely the [facility] oncologist as an outpatient DVT ppx: teds, scds Lines: 1 PIV FEN/GI: HH diet, n.p.o. at midnight in case needs for stress test CODE: Full code Will be discharged home this afternoon Total Time Total Time Spent Total Time Spent (In Minutes): 35 minutes Discharge Plan Discharge Items Patient Disposition: Home - Self-Care Reason For Visit: ATYPICAL CHEST PAIN Discharge Diagnosis: Atypical chest pain, status post negative DSE Condition on Discharge: Good Activity: Resume your previous activity Non-emergency contact: Primary Care Provider Call non-emergency contact if: you have any medication questions and your symptoms worsen Follow-up/Referrals: Frederick Ortiz MD [Primary Care Provider] - 12/06/23 8:00 am (Please keep the appointment with your PCP) Diet: Heart Healthy Addtl Attending Provider Instructions: No change in medications Take precautions to avoid falls Take your medications as advised Pending Studies at Discharge: No Stand-Alone Forms: [employer], Smoking Cessation Medications and DC Order Prescriptions: Continued atorvastatin 20 mg tablet 20 mg PO QPM amlodipine 5 mg tablet 5 mg PO QPM aspirin 81 mg Tablet,Delayed Release (Dr/Ec) 81 mg PO QPM garlic 1,000 mg Capsule 1,000 mg PO QPM calcium carbonate-vitamin D3 [Calcium 600 + D(3)] 600 mg(1,500mg) -400 unit Tablet 1 tab PO QPM omega 7-tlz-hco-fish oil [Fish Oil] 1,000 mg (120 mg-180 mg) Capsule 1 cap PO QPM tamsulosin 0.4 mg Capsule 0.4 mg PO QPM Discharge Orders: Discharge Order (Routine); Ordered 11/27/23 Ordered By: [place]/Other Patient Handouts: ED Chest Pain, Uncertain Cause Admission Data Admit Date/Time: 11/26/23 15:59 Attending Provider: Bassam Farooq Admit Provider: Bassam Farooq Primary Care Provider: Frederick Ortiz Other Providers: Venancio Ye Other Interventions: Discharge Summary Assessment (RN) Last Done: 11/27/23 12:59
== END 2023-11-27 13:01 | disposition home or self-care (01) | DRG 313 ==
LOC: ED 12:35 → 2N 15:59
DX: I10 Essential (primary) hypertension; I35.0 Nonrheumatic aortic (valve) stenosis; I25.10 Atherosclerotic heart disease of native coronary artery without angina pectoris; D69.6 Thrombocytopenia, unspecified; E78.5 Hyperlipidemia, unspecified; Z79.899 Other long term (current) drug therapy; Z79.82 Long term (current) use of aspirin; H91.93 Unspecified hearing loss, bilateral; D64.9 Anemia, unspecified; R07.89 Other chest pain; D46.9 Myelodysplastic syndrome, unspecified